=== PATIENT | female | born 1950 | race Caucasian/White ===

== ENCOUNTER → 2020-03-13 09:00 | Outpatient (BNVA) | payer MEDICARE, SELFPAY | PROVIDERS: Family Provider Nurse Practitioner Family; Visit Provider Nurse Practitioner Family | DX: Z13.29 Encounter for screening for other suspected endocrine disorder (principal); Z13.6 Encounter for screening for cardiovascular disorders; Z12.39 Encounter for other screening for malignant neoplasm of breast; I10 Essential (primary) hypertension; F32.9 Major depressive disorder, single episode, unspecified | CPT/HCPCS: 80053; 80061; 84439; 84443 ==

== ENCOUNTER → 2020-09-10 10:36 | Outpatient (BNVA) | payer MEDICARE, SELFPAY | PROVIDERS: Family Provider Nurse Practitioner Family; PCP Nurse Practitioner Family; Visit Provider Nurse Practitioner Family | DX: I10 Essential (primary) hypertension (principal); Z68.27 Body mass index [BMI] 27.0-27.9, adult; F32.9 Major depressive disorder, single episode, unspecified; Z23 Encounter for immunization | CPT/HCPCS: 80053; 80061 ==

== ENCOUNTER 2020-12-24 14:31 | Emergency (ER) | payer MEDICARE, SELFPAY ==
[2020-12-24 14:32] VITALS: BP 155/82; PULSE 110; RESP 16; TEMP 37.1; O2SAT 89; BMI 26.5
--- NOTE | 2020-12-24 14:47 | ED_ITS ---
HPI - Extremity Problem General: Chief complaint: Extremity Injury, Lower Stated complaint: FALL, R FOOT PAIN, SWELLING Time Seen by Provider: 12/24/20 14:33 History of Present Illness: HPI Narrative: 70-year-old female presents emergency room via EMS after a fall at home. She slipped on some ice outside and twisted her right ankle she has an obvious deformity of some ecchymosis after this happened she managed to get inside using a walker in the house and fell again. Neither time did she strike her head or lose consciousness. She denies any other injuries. She does take aspirin daily but denies any other anticoagulants. No chest pain or shortness of breath. MD Complaint: joint swelling and joint pain Onset (ago): hour(s) Pain Consistency: constant Location: right and other (ankle) Quality: aching, sharp and constant Radiation: none Relieving factors: immobilization Exacerbating factors: range of motion, weight bearing and palpation Associated symptoms: Deny arthralgias, chest pain, fever(s), myalgias, rash or short of breath Review of Systems Const: Denies: fever(s) ENMT: Denies: throat pain, ear or mastoid pain, nasal discharge or nasal congestion Card: Denies: chest pain Resp: Denies: dyspnea, productive cough or non-productive cough GI: Denies: abdominal pain, nausea, vomiting, hematemesis, coffee ground emesis, diarrhea, constipation, bloating, hematochezia or melena : Denies: flank pain, difficulty voiding, dysuria, urinary frequency or urinary urgency Skin/Breast: Denies: rash PFSH ED PFSH: Medical History (Updated 12/24/20 @ 15:33 by Jose Goss DO) COPD (chronic obstructive pulmonary disease) Depression GERD (gastroesophageal reflux disease) Hyperlipidemia Hypertension Social History Smoking and tobacco status: never smoked Alcohol intake: current Alcohol intake frequency: holidays/special occasions only Physical Exam Const: COMMON NORMALS: no acute distress GENERAL APPEARANCE: cooperative and comfortable ORIENTATION/CONSCIOUSNESS: Yes awake, Yes oriented to person, Yes oriented to place and Yes oriented to time HENMT: COMMON NORMALS: normocephalic, atraumatic and hearing grossly normal bilaterally HEAD & SCALP: normocephalic and atraumatic Neck/C-Spine: COMMON NORMALS: no JVD Resp: COMMON NORMALS: normal respiratory effort, No retractions, No use of accessory muscles and clear to auscultation bilaterally AUSCULTATION: clear to auscultation bilaterally Cardio: COMMON NORMALS: no JVD, regular rate, regular rhythm and No murmurs present (Cardio) RATE: regular rate RHYTHM: regular rhythm GI: COMMON NORMALS: Soft to palpation and No hepatosplenomegaly present AUSCULTATION: Yes normoactive bowel sounds PALPATION: Yes Soft to palpation, No Tenderness to palpation present (GI), No Guarding due to palpation present (GI) and Yes No hepatosplenomegaly present Extremity: COMMON NORMALS: normal to inspection, capillary refill normal, no clubbing, cyanosis or edema, no calf tenderness and no pedal edema NARRATIVE EXTREMITY EXAM: Obvious deformity of the right ankle with early ecchymotic changes. Review of the x-ray shows a moderately displaced trimalleolar fracture with a large involvement of the articulating surface of the distal tibia. Neuro: SENSORIUM/ORIENTATION: Yes oriented to person, Yes oriented to place and Yes oriented to time Skin: COMMON NORMALS: no rashes or lesions noted GENERAL SKIN EXAM: no rashes or lesions noted Course Vital Signs: Vital signs: Vital Signs Temperature 98.8 F 12/24/20 14:32 Pulse Rate 105 H 12/24/20 14:59 Respiratory Rate 18 12/24/20 14:59 Blood Pressure 155/82 12/24/20 14:59 Pulse Oximetry 97 12/24/20 14:59 MDM - Extremity (Nontraumatic) MDM Narrative: Medical decision making narrative: Discussed with Dr. Lao he is on-call for podiatry. Posterior splint and nonweightbearing pain medications follow-up with him tomorrow to plan for definitive surgical reductio n. Discharge Plan Discharge Patient Disposition: Home Clinical Impression: Closed trimalleolar fracture of ankle Qualifiers: Encounter type: initial encounter Laterality: right Qualified Code(s): S82.851A - Displaced trimalleolar fracture of right lower leg, initial encounter for closed fracture Condition: Stable Prescriptions: New hydrocodone-acetaminophen 5-325 mg tablet 1 tab PO Q6H PRN (Reason: pain) Qty: 20 RF: 0 No Action aspirin [Adult Aspirin Regimen] 81 mg tablet,delayed release (DR/EC) 81 mg PO DAILY RF: 0 amlodipine 5 mg tablet 5 mg PO DAILY Qty: 90 RF: 3 omeprazole 20 mg capsule,delayed release(DR/EC) 20 mg PO DAILY Qty: 90 RF: 3 pravastatin 40 mg tablet 40 mg PO DAILY Qty: 90 RF: 3 sertraline 100 mg tablet 100 mg PO DAILY Qty: 90 RF: 3 albuterol sulfate 2.5 mg /3 mL (0.083 %) solution for nebulization 2.5 mg INHALATION Q4H PRN (Reason: shortness of breath or wheezing) Qty: 180 RF: 3 triamcinolone acetonide 0.5 % ointment 1 applic TOPICAL TID Qty: 15 RF: 0 albuterol sulfate [Ventolin HFA] 90 mcg/actuation HFA aerosol inhaler 2 puff INHALATION Q4H PRN (Reason: shortness of breath or wheezing) Qty: 18 RF: 2 Healthy Eyes Lutein-Zeaxanthin 60 mg-13.5 mg- 15 mg-2 mg-6 mg capsule 1 cap PO DAILY RF: 0 acetaminophen [Arthritis Pain Relief (acetam)] 650 mg tablet extended release 650 mg PO Q12H RF: 0 Discharge Orders: Discharge ED (Routine); Ordered 12/24/20 Ordered By: Jose Goss Referrals: Chase Lao DPM [Physician] - Discharge Diet: Usual diet Discharge Activity: Limit activity as instructed Activity Restrictions/Additional Instructions: Case management will call with an appointment to Dr. Lao's office Coding Level of Care Code ED Stage Driver for [facility]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
--- NOTE | 2020-12-24 14:51 | XR_ITS ---
WS: [id number] ANKLE RIGHT TECHNIQUE: 3 views of the right ankle CLINICAL INFORMATION: papin/deformity COMPARISON: None. FINDINGS: Diffuse soft tissue edema. Comminuted fracture involving the distal fibula. Additional spiral type fr acture involving the distal tibia extending to the tibial plafond. Mild disruption of the ankle morti se. Additional nondisplaced fracture extending into the medial malleolus. XR/XR ankle RT min 3V* [id number] IMPRESSION: 1. Comminuted fractures involving the distal fibula with spiral type fracture involving the distal tibial shaft extending to the tibial plafond. 2. Additional nondisplaced fracture involving the medial malleolus.
[2020-12-24 14:59] VITALS: BP 155/82; PULSE 105; RESP 18; O2SAT 97
--- NOTE | 2020-12-24 15:29 | CT_ITS ---
WS: [id number] Noncontrast CT right ankle TECHNIQUE: Noncontrast CT right ankle with coronal and sagittal reformatted images. CLINICAL INFORMATION: fracture COMPARISON: None. DLP: 111.[address] scans at [facility] use at least one of these dose optimization techniques: automat ed exposure control; mA and/or kV adjustment per patient size (includes targeted exams where dose is matched to clinical indication); or iterative reconstruction. FINDINGS: Comminuted fracture involving the distal fibula. Diffuse soft tissue edema. Comminuted fracture invol ving the distal tibial shaft with intra-articular extension. Disruption of the tibiotalar joint with widening measuring 5 mm. Avulsed and displaced fracture involving the anterolateral tibial plafond. F racture fragment is displaced anterior to the lateral malleolus and measures 16 mm. Additional comminuted fracture involving the medial malleolus. Talus is normal in appearance. Normal calcaneus. Normal talocalcaneal articulation. Normal navicular. CT/CT ankle RT wo con* [id number] IMPRESSION: 1. Extensively comminuted fracture involving the lateral malleolus, medial mal leolus, and distal tibial shaft with intra-articular extension. 2. Disruption of the tibiotalar joint with widening measuring 5 mm. Avulsed an d displaced fracture involving the anterolateral tibial plafond. Fracture is di splaced anterior to the lateral malleolus and measures 16 mm. 3. Normal talus and calcaneus.
[2020-12-24 16:13] VITALS: BP 163/95; PULSE 109; RESP 18; O2SAT 95
[2020-12-25 15:20] LABS: Coronavirus Test Green County Not Detected
--- NOTE | 2020-12-25 16:05 | PC.NURSE ---
Patient notified of COVID results at this time.
== END 2020-12-24 16:14 | disposition home or self-care (01) ==
PROVIDERS: Emergency Provider Family Medicine; PCP Nurse Practitioner Family
DX: S82.851A Displaced trimalleolar fracture of right lower leg, initial encounter for closed fracture (principal); Z79.82 Long term (current) use of aspirin; J44.9 Chronic obstructive pulmonary disease, unspecified; E78.5 Hyperlipidemia, unspecified; I10 Essential (primary) hypertension; W00.0XXA Fall on same level due to ice and snow, initial encounter
CPT/HCPCS: 12345; 29515; 73610; 73700; 87635; 99283; E0114

== ENCOUNTER 2020-12-25 14:43 | Outpatient (CLI) | payer MEDICARE, SELFPAY | END 2020-12-25 14:44 | disposition home or self-care (01) | LOC: SPT 14:44 | PROVIDERS: PCP Nurse Practitioner Family; Visit Provider Podiatrist Foot & Ankle Surgery | DX: Z46.89 Encounter for fitting and adjustment of other specified devices (principal); S82.851D Displaced trimalleolar fracture of right lower leg, subsequent encounter for closed fracture with routine healing; X58.XXXD Exposure to other specified factors, subsequent encounter | CPT/HCPCS: 97760; L4361 ==

== ENCOUNTER → 2021-01-08 08:56 | Outpatient (BNVA) | payer MEDICARE, SELFPAY | PROVIDERS: PCP Nurse Practitioner Family; Visit Provider Podiatrist Foot & Ankle Surgery | DX: Z01.812 Encounter for preprocedural laboratory examination (principal); S82.851A Displaced trimalleolar fracture of right lower leg, initial encounter for closed fracture; X58.XXXA Exposure to other specified factors, initial encounter | CPT/HCPCS: 73610; 87635 ==

== ENCOUNTER 2021-01-09 08:01 | Day surgery (SDC) | payer MEDICARE, SELFPAY ==
[2021-01-08 13:24] VITALS: BMI 26.5
[2021-01-09] VITALS (9 sets, daily range): BP systolic 106–170; BP diastolic 80–97; PULSE 84–105; RESP 18–20; TEMP 36.8–37.3; O2SAT 93–100
--- NOTE | 2021-01-09 | SCC_ITS ---
Procedure Done: Open reduction internal fixation pilon fracture with fixation of fibula 37314 53.0 seconds of fluoroscopic guidance, for a cumulative dose of 1.372 mGy, was provided to Dr. Lao by the radiology department. C-arm images of the RIGHT ankle were saved for the patient's permanent record. [facility]
[2021-01-09] MEDS: sodium chloride 0.9% 1,000 ML 30 ML IV (08:59)
--- NOTE | 2021-01-09 09:21 | W.PM.OPSUD ---
Surgery/Procedure H&P Update DATE OF PROCEDURE: January 09, 2021 DATE H&P PERFORMED: 01/08/21 H&P UPDATE INFORMATION: I have reviewed H&P completed within last 30 days, I have examined patient prior to procedure, No changes to prior documentation and H&P is in [facility] on date indicated PREOP DIAGNOSIS: Right trimalleolar fracture PLANNED PROCEDURE: Operation Date: 01/09/21 09:40 Proposed Procedures p Open reduction internal fixation pilon fracture with fixation of fibula 82079 S82.871A S82.401A(Right) - Chase Loa DPM
--- NOTE | 2021-01-09 10:07 | ANES.PREANE2 ---
Pre-Anesthetic Assessment Pre-Anesthetic Assessment: Height/Weight: Height 1.6 m Weight 68.039 kg Temp Pulse Resp BP Pulse Ox 98.2 F 105 H 18 170/86 93 01/09/21 08:35 01/09/21 08:35 01/09/21 08:35 01/09/21 08:35 01/09/21 08:35 Preop Diagnosis: Right trimalleolar fracture Proposed Procedure: Operation Date: 01/09/21 09:40 Proposed Procedures p Open reduction internal fixation pilon fracture with fixation of fibula 77861 S82.871A S82.401A(Right) - Chase Lao DPM Was Beta Jose Angel taken within 24 hours: N/A Last intake: Intake Last Liquid Date 01/09/21 Last Liquid Time 07:00 Last Solid Date 01/09/21 Last Solid Time 18:00 Social: Social History: Tobacco and No alcohol Exam: Pre-Anes Outpt Exam: alert, oriented x 3 and regular rate & rhythm CV/HEM: CV/HEM: HTN GI: GI: GERD Neuropsych: Neuropsych: Anxiety and Depression Anesthetic Plan: ASA status: 3 Anesthesia: MAC and Regional (specify below) (POP blk) Risk of > 500 ml blood loss (7ml/kg in children): No Meds/Allergies Current Medications: Current Medications Generic Name Dose Route Start Last Admin Trade Name Freq PRN Reason Stop Dose Admin Sodium Chloride 1,000 mls @ 30 ml s/hr 01/09/21 08:15 01/09/21 08:59 Sodium Chloride 0.9% IV 01/10/21 08:14 30 mls/hr .Q24H MILAGROS Administration PFSH Anesthesia PFSH: Medical History (Updated 01/08/21 @ 09:34 by Chase Lao DPM) COPD (chronic obstructive pulmonary disease) Depression GERD (gastroesophageal reflux disease) Hyperlipidemia Hypertension Social History Smoking and tobacco status: never smoked Alcohol intake: current Alcohol intake frequency: holidays/special occasions only Data Anesthesia Cardiac Studies: No Data to Display
--- NOTE | 2021-01-09 13:45 | XR_ITS ---
WS: [id number] Right ankle, 3 views, 01/09/2021 Clinical Data: post op Comparison: Right ankle, 01/08/2021 Findings: The trimalleolar fracture has been reduced with a plate on the lateral aspect of the right fibula and posterior aspect of the distal right tibia. There are oblique screws in the medial malleolus. There is a posterior splint. XR/XR ankle RT min 3V* [id number] Impression: Internal fixation of trimalleolar fracture.
[2021-01-09] MEDS: oxyCODONE-APAP 10-325 mg Tablet 1 TAB PO (15:10)
--- NOTE | 2021-01-09 15:14 | ANE.PACU2 ---
Inpatient post-anesthesia follow up: Airway intact: Yes Vital signs: Temperature 99.2 F Pulse Rate 89 Respiratory Rate 18 Blood Pressure 154/97 Pulse Oximetry 95 Oxygen Delivery Me thod Room Air Oxygen Flow Rate 8 Fraction of Inspir ed Oxygen Hydration adequate: Yes Nausea and vomiting: No Pain level: 2 Mental status: Baseline
--- NOTE | 2021-01-09 21:45 | P.OP_ITS ---
Operative Report Date of procedure: January 09, 2021 Pre-op Diagnosis: Right pilon fracture, right fibular fracture. Post-op diagnosis: same Procedure Done: Open reduction internal fixation pilon fracture with fixation of fibula right lower extremity CPT code 06103 Implants: Arthrex posterior tibial plate with 2.7 millimeter screws distally and 3.5 millimeter screws proximally. Arthrex one third tubular plate on posterior fibula with 3.5 mm locking screws. Arthrex 4.0 headless FT screws at medial malleolus x2. 2-0 Vicryl, 3-0 Vicryl, 3-0 nylon, 4-0 nylon. Specimens removed/disposition: None Pathology: none sent Surgeon: Chase Lao D.P.M. [employer] Operator: Kacy Anderson Haley [employer] Anesthesia: General Estimated blood loss: 25 mL Tourniquet time: See intraoperative documentation IV fluids: None Urine output: None Complications: None Findings: Pilon fracture to the right distal tibia involving approximately 80% of the tibial plafond, Manjit Barnett B fibula fracture, right. Condition: stable Disposition: PACU Brief History: Ms. Graham is a pleasant 70-year-old female who sustained a right pilon fracture on December 24, 2020 slipped on ice at home going out to feed her birds. States that she slipped twisting her right ankle and then fell backwards landing on her right ankle and sat on it. She was seen in the emergency department and splinted and given crutches as well as hydrocodone and was nonweightbearing. Follow-up in podiatry clinic the next day. Concern for fracture blisters and poor soft tissue envelope with significant ecchymosis and edema delayed surgery until today. I discussed surgical approach will be prone, posterior lateral incision and percutaneous medial malleolus fixation. I reviewed x-rays and CT findings with the patient at length she has a large posterior fragment of the distal tibia extends into the tibial plafond and involves approximately 80% of the articular surface with displacement posteriorly and proximally. She also has a comminuted distal fibular fracture Manjit Barnett B as well as comminution and fracturing at the shoulder the medial malleolus. I explained to the patient that she has a grossly unstable ankle fracture and a large step-off of the tibial plafond and fracture displacement. Recommended open reduction internal fixation of her pilon fracture as well as distal fibular fracture. Risks of this type of surgery are included in the following but not limited to pain, bleeding, acute and permanent numbness, hypersensitivity, paresthesias, swelling both acutely and chronic, keloid formation, surgical site dehiscence, seroma, hematoma, skin necrosis, failure to anatomically reduce the pilon fracture, damage to adjacent soft tissue structures, loss of function, decreased range of motion at the ankle joint, painful range of motion at the ankle joint, painful hardware, hardware irritation, hardware failure, delayed union, nonunion and malunion. I also informed the patient that she will experience posttraumatic arthritis down the road as a result of this injury. Also inherent risks associate with anesthesia and being nonweightbearing postoperatively for an extended period of time puts her at risk for DVT, heart attack and stroke. I interviewed the patient preoperatively in holding she is accompanied by her sister. All questions answered to their satisfaction. Informed consent is signed, initialed the patient's right ankle. Patient wishes to proceed. No guarantees written, expressed or implied. Procedure: Under mild sedation the patient was brought to the operating room, timeout was performed. While patient was still on the [facility] general anesthesia was induced per anesthesia and a well-padded pneumatic tourniquet applied to the right thigh. Patient was then placed in prone position on the operating room table well-padded utilizing normal technique. Right lower extremity was then scrubbed, prepped and draped utilizing normal aseptic technique. Right lower extremity was examined a weighted with an Esmarch bandage and the tourniquet inflated to 300 mmHg. Attention was directed to the right posterior ankle I was able to palpate the lateral border of the Achilles and the medial border of the distal fibula. [place] between these 2 landmarks a linear longitudinal incision was made approximately 15 cm in length with a #15 blade. Dissection was carried down through subcutaneous tissue down to the layer of deep fascia utilizing sharp and blunt technique. Care was taken to retract and preserve neurovascular tendinous structures. Bleeders were ligated and cauterized as necessary. Approach was taken directly down to the posterior tibia to address the pilon fracture first. The interval between the medial border of the peroneal tendons and musculature and the lateral border of the flexor houses longus muscle belly was identified and fascial layers incised. Dissection was carried down to the posterior tibia with the neurovascular bundle being protected medial to the flexor houses longus muscle belly. Periosteal incision was made and a fracture was directly visualized this was a spiral fracture of the distal tibia and extended through the tibial plafond and was displaced both posteriorly and superiorly. Hematoma was evacuated utilizing bone curette and lavage. Fracture was then reduced and temporarily stabilized utilizing a bone reduction forcep. Next utilizing standard AO technique and Arthrex posterior tibial plate was fixated with 2.7 millimeter screws distally and 3.5 mm proximally with excellent bony apposition and compression noted with care taken not to violate the ankle mortise this was confirmed with AP and lateral views intraoperative C arm. Incision site was then flushed with copious amounts of sterile saline solution. Within the same skin incision dissection was then carried down to the lateral portion of the incision and peritoneal musculature and tendons retracted medially exposing the posterior fibula. Periosteal incision was made and fracture site was identified evacuated of hematoma formation utilizing curettage and lavage. This was reduced and fixated utilizing standard AO technique a Arthrex one third tubular plate and 3.5 mm locking screws was utilized to distal and 3 proximal with excellent bony apposition and compression noted and placement and reduction confirmed utilizing intraoperative fluoroscopy and noted to be excellent. Incision site was then flushed with copious amounts of sterile saline solution. While patient was still positioned prone the medial malleolus was palpated, utilizing AP and mortise views the medial malleolus was fixated percutaneously with 4.0 mm headless Arthrex FT screws x2 in a parallel fashion with excellent bony apposition and compression noted and care taken not to violate the ankle mortise at the medial gutter. This was confirmed utilizing live fluoroscopy. The posterior incision was then irrigated with a saline solution. Both deep incisions were reapproximated with fascial layers utilizing 2-0 Vicryl. Subcutaneous tissue was then reapproximated utilizing 3-0 Vicryl and skin reapproximated utilizing 3-0 nylon in a horizontal mattress technique. Percutaneous incision at the medial malleolus closed utilizing 4-0 nylon. Final images reviewed and taken in all 3 cardinal planes utilizing intraoperative fluoroscopy noted to be excellent points of fixation both at the pilon fracture and distal fibular fracture as well as medial malleolus. Incision sites were dressed with Adaptic, sterile 4 x 4's, Kerlix followed by application of multilayer compressive posterior splint. Tourniquet was deflated and a prompt hyperemic response was noted to the distal digits of the right foot. Patient tolerated the procedure well and was transferred to the PACU with vital signs stable vascular status intact. Postoperatively anesthesia performed a popliteal block for analgesia. Patient has order for wheelchair as well as currently u tilizing crutches she has family staying with her through the weekend. Was advised to remain strict nonweightbearing and elevate her right foot at all times while at rest. She was instructed to begin taking a 81 mg aspirin once daily for DVT prophylaxis starting tomorrow January 10, 2021. Was given postoperative instructions, at home care instructions and follow-up appointments on discharge paperwork. Also provided my cell phone number and is to contact with any postoperative questions or concerns.
== END 2021-01-09 15:50 | disposition home or self-care (01) ==
PROVIDERS: PCP Nurse Practitioner Family; Visit Provider Podiatrist Foot & Ankle Surgery
PROC: (CPT 27828; principal; 2021-01-09 09:20)
DX: S82.871A Displaced pilon fracture of right tibia, initial encounter for closed fracture (principal); S82.401A Unspecified fracture of shaft of right fibula, initial encounter for closed fracture; X58.XXXA Exposure to other specified factors, initial encounter; I10 Essential (primary) hypertension; J44.9 Chronic obstructive pulmonary disease, unspecified; F32.9 Major depressive disorder, single episode, unspecified; F41.9 Anxiety disorder, unspecified; K21.9 Gastro-esophageal reflux disease without esophagitis; E78.5 Hyperlipidemia, unspecified; Z79.82 Long term (current) use of aspirin
CPT/HCPCS: 27828; 51702; 64450; 73610; 76000; 76942; C1713; J0690; J2704; J2795; J3010; J3490; J7030

== ENCOUNTER → 2021-01-19 11:36 | Outpatient (BNVA) | payer MEDICARE, SELFPAY | PROVIDERS: PCP Nurse Practitioner Family; Visit Provider Podiatrist Foot & Ankle Surgery | DX: Z47.89 Encounter for other orthopedic aftercare (principal); S82.831D Other fracture of upper and lower end of right fibula, subsequent encounter for closed fracture with routine healing; S82.871D Displaced pilon fracture of right tibia, subsequent encounter for closed fracture with routine healing; X58.XXXD Exposure to other specified factors, subsequent encounter | CPT/HCPCS: 73610; 97760; L4361 ==

== ENCOUNTER 2021-01-19 12:15 | Outpatient (CLI) | payer MEDICARE, SELFPAY | END 2021-01-19 12:16 | disposition home or self-care (01) | LOC: SPT 12:15 | PROVIDERS: PCP Nurse Practitioner Family; Visit Provider Podiatrist Foot & Ankle Surgery | DX: Z47.89 Encounter for other orthopedic aftercare (principal); S82.831D Other fracture of upper and lower end of right fibula, subsequent encounter for closed fracture with routine healing; S82.871D Displaced pilon fracture of right tibia, subsequent encounter for closed fracture with routine healing; X58.XXXD Exposure to other specified factors, subsequent encounter | CPT/HCPCS: 97760; L4361 ==

== ENCOUNTER → 2021-01-30 10:14 | Outpatient (BNVA) | payer MEDICARE, SELFPAY | PROVIDERS: PCP Nurse Practitioner Family; Visit Provider Podiatrist Foot & Ankle Surgery | DX: Z98.890 Other specified postprocedural states (principal); S82.831D Other fracture of upper and lower end of right fibula, subsequent encounter for closed fracture with routine healing; S82.871D Displaced pilon fracture of right tibia, subsequent encounter for closed fracture with routine healing; X58.XXXD Exposure to other specified factors, subsequent encounter | CPT/HCPCS: 73610 ==

== ENCOUNTER → 2021-02-27 10:24 | Outpatient (BNVA) | payer MEDICARE, SELFPAY | PROVIDERS: PCP Nurse Practitioner Family; Visit Provider Podiatrist Foot & Ankle Surgery | DX: Z98.890 Other specified postprocedural states (principal) | CPT/HCPCS: 73610 ==

== ENCOUNTER → 2021-03-13 13:10 | Outpatient (BNVA) | payer MEDICARE, SELFPAY | PROVIDERS: PCP Nurse Practitioner Family; Visit Provider Podiatrist Foot & Ankle Surgery | DX: Z98.890 Other specified postprocedural states (principal); S82.831A Other fracture of upper and lower end of right fibula, initial encounter for closed fracture; S82.871A Displaced pilon fracture of right tibia, initial encounter for closed fracture; Z46.89 Encounter for fitting and adjustment of other specified devices; S82.831S Other fracture of upper and lower end of right fibula, sequela; S82.871S Displaced pilon fracture of right tibia, sequela; X58.XXXS Exposure to other specified factors, sequela | CPT/HCPCS: 73610; 97760; L1902 ==

== ENCOUNTER 2021-03-13 13:59 | Outpatient (CLI) | payer MEDICARE, SELFPAY | END 2021-03-13 14:00 | disposition home or self-care (01) | LOC: SPT 14:01 | PROVIDERS: PCP Nurse Practitioner Family; Visit Provider Podiatrist Foot & Ankle Surgery | DX: Z46.89 Encounter for fitting and adjustment of other specified devices (principal); S82.831S Other fracture of upper and lower end of right fibula, sequela; S82.871S Displaced pilon fracture of right tibia, sequela; X58.XXXS Exposure to other specified factors, sequela | CPT/HCPCS: 97760; L1902 ==

== ENCOUNTER → 2021-04-03 15:07 | Outpatient (BNVA) | payer MEDICARE, SELFPAY | PROVIDERS: PCP Nurse Practitioner Family; Visit Provider Podiatrist Foot & Ankle Surgery | DX: Z98.890 Other specified postprocedural states (principal); S82.831A Other fracture of upper and lower end of right fibula, initial encounter for closed fracture; S82.871A Displaced pilon fracture of right tibia, initial encounter for closed fracture; X58.XXXA Exposure to other specified factors, initial encounter | CPT/HCPCS: 73610 ==

== ENCOUNTER → 2021-04-08 09:00 | Outpatient (BNVA) | payer MEDICARE, SELFPAY | PROVIDERS: PCP Nurse Practitioner Family; Visit Provider Nurse Practitioner Family | DX: E78.5 Hyperlipidemia, unspecified (principal); I10 Essential (primary) hypertension | CPT/HCPCS: 80053; 80061 ==

== ENCOUNTER 2021-06-09 15:34 | Outpatient (CLI) | payer MEDICARE, SELFPAY ==
--- NOTE | 2021-06-09 15:46 | XR_ITS ---
WS: [id number] DEXA (DUAL ENERGY X-RAY ABSORPTIOMETRY) Bone mineral density was performed using a [employer] machine. HISTORY: S82.831A - Other fracture of upper and lower end of right... COMPARISON: None available. Lumbar spine BMD (L1-L4): 1.089 g/cm2 T score: -0.8 Z score: 0.7 Total hip BMD: Left: 0.621 g/cm2. T score: -3.1 Z score: -1.7 Right: 0.509 g/cm2. T score: -4.0 Z score: -2.6 10 year probability of a major osteoporotic fracture is 39%. XR/XR DEXA axial skeleton* 31174 IMPRESSION: OSTEOPOROSIS based upon the WHO classification for females.
== END 2021-06-09 15:35 | disposition home or self-care (01) ==
PROVIDERS: PCP Nurse Practitioner Family; Visit Provider Nurse Practitioner Family
DX: S82.831A Other fracture of upper and lower end of right fibula, initial encounter for closed fracture (principal); X58.XXXA Exposure to other specified factors, initial encounter; M81.0 Age-related osteoporosis without current pathological fracture
CPT/HCPCS: 77080

== ENCOUNTER → 2021-07-21 16:32 | Outpatient (BNVA) | payer MEDICARE, SELFPAY | PROVIDERS: PCP Nurse Practitioner Family; Visit Provider Nurse Practitioner Family | DX: M81.0 Age-related osteoporosis without current pathological fracture (principal); I10 Essential (primary) hypertension; Z68.27 Body mass index [BMI] 27.0-27.9, adult | CPT/HCPCS: 82310 ==

== ENCOUNTER → 2021-10-12 08:54 | Outpatient (BNVA) | payer MEDICARE, SELFPAY | PROVIDERS: PCP Nurse Practitioner Family; Visit Provider Nurse Practitioner Family | DX: I10 Essential (primary) hypertension (principal); M81.0 Age-related osteoporosis without current pathological fracture; E78.2 Mixed hyperlipidemia; N39.3 Stress incontinence (female) (male); Z68.29 Body mass index [BMI] 29.0-29.9, adult | CPT/HCPCS: 80053; 80061; 84443; 85025 ==

== ENCOUNTER → 2022-04-02 09:40 | Outpatient (BNVA) | payer MEDICARE, SELFPAY | PROVIDERS: PCP Nurse Practitioner Family; Visit Provider Nurse Practitioner Family | DX: J44.9 Chronic obstructive pulmonary disease, unspecified (principal); I10 Essential (primary) hypertension; E55.9 Vitamin D deficiency, unspecified; E78.2 Mixed hyperlipidemia; F32.9 Major depressive disorder, single episode, unspecified | CPT/HCPCS: 80053; 80061; 82306; 84443; 85025 ==

== ENCOUNTER → 2022-09-28 09:00 | Outpatient (BNVA) | payer MEDICARE, SELFPAY | PROVIDERS: PCP Nurse Practitioner Family; Visit Provider Nurse Practitioner Family | DX: I10 Essential (primary) hypertension (principal); E78.2 Mixed hyperlipidemia; F32.9 Major depressive disorder, single episode, unspecified; Z68.29 Body mass index [BMI] 29.0-29.9, adult | CPT/HCPCS: 80053; 80061 ==

== ENCOUNTER 2022-10-25 10:13 | Observation (INO) | payer MEDICARE, SELFPAY ==
[2022-10-25] VITALS (23 sets, daily range): BP systolic 107–156; BP diastolic 48–87; PULSE 84–113; RESP 16–26; TEMP 36.3–36.7; O2SAT 77–95
--- NOTE | 2022-10-25 11:14 | ED_ITS ---
HPI - SOB/Dyspnea General: Chief Complaint: Shortness of Breath/Dyspnea Stated Complaint: lower back pain, reduced mobility Time Seen by Provider: 10/25/22 10:56 History of Present Illness: HPI Narrative: Ms. Graham is a 72-year-old lady with history of COPD, hypertension, hyperlipidemia presenting to the emergency department due to respiratory symptoms. She reports onset of symptoms 2 or 3 days ago associated with cough, shortness of breath, generalized malaise with decreased exertional tolerance. Intensity of symptoms is progressed to severe. Additionally she notes exacerbation of chronic back pain. No measured fevers, has had mild diarrhea, no abdominal cramping or pain. No other specific changes in health, exacerbating, or alleviating factors identified. Onset (ago): day(s) Timing: progressively worsening Severity: severe Exacerbating factors: exertion and coughing Relieving factors: nothing Known history of: COPD Associated symptoms: Reports chest congestion, cough and other Review of Systems 2 General: Reports: 10 or more systems reviewed and unremarkable except in HPI and below Resp: Reports: chest congestion PFSH ED PFSH: Medical History COPD (chronic obstructive pulmonary disease) Depression GERD (gastroesophageal reflux disease) 1 para 1 Hyperlipidemia Hypertension Osteoporosis Post-traumatic arthritis of right ankle Stress incontinence in female Vitamin D deficiency Surgical History History of cataract surgery bialteral History of elbow surgery left, due to nerve entrapment History of tubal ligation Status post open reduction and internal fixation (ORIF) of fracture (12/2020) Dr. Lao; right pilon fracture, right fibular fracture Family History Father Cancer Type of cancer not known (unknown primary), but was in the lungs Mother , age 54 from respiratory disease, COPD, heavy smoker Lung disease Other Diabetes Social History Smoking and tobacco status: former smoker Alcohol intake: current Alcohol intake frequency: holidays/special occasions only Lives independently: Yes Household members: none Physical Exam Const: COMMON NORMALS: alert GENERAL APPEARANCE: cooperative, well developed and ill appearing (somewhat) HENMT: COMMON NORMALS: normocephalic and atraumatic HEAD & SCALP: normocephalic and atraumatic Eye: COMMON NORMALS: conjunctivae normal CONJUNCTIVA: Yes conjunctivae normal SCLERA: sclerae normal Neck/C-Spine: COMMON NORMALS: supple GENERAL: Yes trachea midline Resp: COMMON NORMALS: clear to auscultation bilaterally EFFORT & INSPECTION: Yes tachypneic AUSCULTATION: clear to auscultation bilaterally Cardio: COMMON NORMALS: regular rate and regular rhythm RATE: regular rate RHYTHM: regular rhythm GI: COMMON NORMALS: Soft to palpation PALPATION: Yes Soft to palpation and No Tenderness to palpation present (GI) Extremity: GENERAL: Yes normal exam except as noted and No edema Neuro: COMMON NORMALS: moves all extremities SENSORIUM/ORIENTATION: Yes alert and No Orientation impaired Psych: COMMON NORMALS: mental status grossly normal and Normal thought process present THOUGHT PROCESS: Normal thought process present Course Vital Signs: Vital signs: Vital Signs Temperature 98.4 F 10/28/22 12:00 Pulse Rate 90 10/28/22 12:14 Respiratory Rate 20 H 10/28/22 12:14 Blood Pressure 146/69 10/28/22 12:00 Pulse Oximetry 94 10/28/22 12:14 Oxygen Delivery Me thod 10/28/22 11:41 Oxygen Flow Rate 4 10/28/22 11:41 MDM - SOB/Dyspnea Medical Decision Making 72-year-old lady with complex history presenting with generalized illness including increased pain and decreased mobility along with shortness of breath. Exam as above. EKG notable for sinus tachycardia, nonspecific ST segment abnormalities, no STEMI. Labs notable for no leukocytosis, normal hemoglobin and platelet count. Me tabolic panel without marked electrolyte derangement. 2-hour delta troponin is negative and BNP only minimally elevated. Patient is positive for influenza A. ABG 7.48/35/48.9 on 6 L nasal cannula. Chest x-ray reviewed and essentially unimpressive for degree of patient's symptoms. No pneumothorax or lobar consolidation. Given severity of symptoms and age patient cannot be ruled out by PERC criteria and D-dimer is elevated above age-adjusted cut off. CTA of the chest negative for acute pathology including thromboembolic pathology. During ED course patient treated with DuoNeb, methylprednisolone, doxycycline. Upon serial reassessment patient only mildly proved and still requiring oxygen above baseline. Most likely etiology of patient's symptoms is viral induced exacerbation of underlying lung disease with acute hypoxic respiratory failure. The results of ED evaluation were discussed with the patient including plan for admission due to requirement for level of care not available if discharged to prevent significant worsening/deterioration. Patient agreeable with plan. Discussed with hospitalist service who was agreeable to admit patient. Medical Records I reviewed the patient's medical records. Lab Data I reviewed the patient's lab results. 10/25/22 11:38 10/25/22 11:38 Labs/Radiology: Radiology Impressions Chest X-Ray 10/25/22 11:18 IMPRESSION: No acute chest abnormality. Chest CTA 10/25/22 12:16 IMPRESSION: 1. No evidence of pulmonary embolus. 2. No acute pulmonary infiltrates. 3. No focal pneumonia or pleural fluid. Laboratory Results WBC 7.3 10^3/uL (4.0-10.0) 10/25/22 11:38 RBC 5.69 10^6/uL (4.1-5.3) H 10/25/22 11:38 Hgb 13.4 g/dL (11.5-15.3) 10/25/22 11:38 Hct 43.6 % (37.0-47.0) 10/25/22 11:38 MCV 76.6 fl (81-99) L 10/25/22 11:38 MCH 23.6 pg (28.0-34.0) L 10/25/22 11:38 MCHC 30.7 g/dL (30.0-36.0) 10/25/22 11:38 RDW 15.4 % (12.1-15.1) H 10/25/22 11:38 Plt Count 340 10^3/cmm (130-400) 10/25/22 11:38 MPV 10.9 fL (7.4-10.4) H 10/25/22 11:38 Neut % (Auto) 75.7 % 10/25/22 11:38 Lymph % (Auto) 14.3 % 10/25/22 11:38 [place] % (Auto) 8.5 % 10/25/22 11:38 Eos % (Auto) 0.1 % 10/25/22 11:38 Baso % (Auto) 0.3 % 10/25/22 11:38 Neut # (Auto) 5.50 10^3/uL (1.8-7.7) 10/25/22 11:38 Lymph # (Auto) 1.0 10^3/uL (0.8-4.8) 10/25/22 11:38 [place] # (Auto) 0.6 10^3/uL (0.2-0.9) 10/25/22 11:38 Eos # (Auto) 0.0 10^3/uL (0.0-0.8) 10/25/22 11:38 Baso # (Auto) 0.0 10^3/uL (0.0-0.1) 10/25/22 11:38 Nucleated RBC % (auto) 0 % 10/25/22 11:38 Nucleated RBCs # 0.0 /100WBC 10/25/22 11:38 D-Dimer 0.91 ug/mIFEU (0-0.59) H 10/25/22 11:38 Specimen Type Arterial 10/25/22 11:18 Sample Site Radial, left 10/25/22 11:18 ABG pH 7.48 (7.35-7.45) H 10/25/22 11:18 ABG pCO2 35.0 mmHg (35-45) 10/25/22 11:18 ABG pO2 48.9 mmHg (80.0-100.0) L 10/25/22 11:18 ABG HCO3 26.2 mmol/L (22-26) H 10/25/22 11:18 ABG Base Excess 2.9 mmol/L (-2.0-2.0) H 10/25/22 11:18 George Test Pos 10/25/22 11:18 Hematocrit 40.1 % (37-47) 10/25/22 11:18 Hgb O2 Saturation 86.8 % (95-100) L 10/25/22 11:18 Carboxyhemoglobin 1.4 %THgb (0.4-20.1) 10/25/22 11:18 Methemoglobin 0.7 % (0.4-1.5) 10/25/22 11:18 Total Hemoglobin 13.1 g/dL (12-16) 10/25/22 11:18 O2 Delivery Device Nc 10/25/22 11:18 O2 Liters/Min 6.0 % 10/25/22 11:[address] Maintenance Supervisor ID Cak 10/25/22 11:18 Sodium 138 mmol/L (136-145) 10/25/22 11:38 Potassium 3.8 mmol/L (3.5-5.1) 10/25/22 11:38 Chloride 96 mmol/L (98-107) L 10/25/22 11:38 Carbon Dioxide 28 mmol/L (22-29) 10/25/22 11:38 Anion Gap 17.8 (5-19) 10/25/22 11:38 BUN 13 mg/dL (8-23) 10/25/22 11:38 Creatinine 0.6 mg/dL (0.5-0.9) 10/25/22 11:38 GFR Calculation Not Reportable 10/25/22 11:38 Glucose 96 mg/dL (65-115) 10/25/22 11:38 Calculated Osmolality 286 mOsm/kg (285-295) 10/25/22 11:38 Lactic Acid 1.5 mmol/L (0.5-2.2) 10/25/22 11:38 Calcium 10.0 mg/dL (8.5-10.5) 10/25/22 11:38 Total Bilirubin 0.3 mg/dL (0.15-1.2) 10/25/22 11:38 AST 15 U/L (0-32) 10/25/22 11:38 ALT 11 U/L (0-33) 10/25/22 11:38 Alkaline Phosphatase 65 U/L (35-105) 10/25/22 11:38 Troponin T Baseline 8 ng/L (0-10) 10/25/22 11:31 Troponin T 120 Minute 8.04 ng/L (0-10) 10/25/22 14:01 Delta Troponin T 0.04 ABS# (0-10) 10/25/22 14:01 Troponin T Hi Sens 6Hr 7.99 ng/L (0-10) 10/25/22 17:31 Troponin T Hi Sens 6Hr Delta -0.01 ng/L (0-12) L 10/25/22 17:31 NT-Pro-B Natriuret Pep 272 pg/mL (0-125) H 10/25/22 11:38 Total Protein 7.8 g/dL (6.6-8.7) 10/25/22 11:38 Albumin 4.6 g/dL (3.5-5.2) 10/25/22 11:38 Globulin 3.2 g/dL (1.3-4.6) 10/25/22 11:38 Procalcitonin 0.08 ng/mL (0-0.5) 10/25/22 11:38 Nasal Influ A H1 2009 PCR Detected (NOT DETECT) A 10/25/22 12:52 Adenovirus (PCR) Not detected (NOT DETECT) 10/25/22 12:52 C. pneumoniae DNA (PCR) Not detected (NOT DETECT) 10/25/22 12:52 Coronavirus 229E (PCR) Not detected (NOT DETECT) 10/25/22 12:52 Human Metapneumovir PCR Not detected (NOT DETECT) 10/25/22 12:52 Influenza A (H1) PCR Not detected (NOT DETECT) 10/25/22 12:52 Influenza A (H3) PCR Not detected (NOT DETECT) 10/25/22 12:52 Influenza Type A Ag negative (Negative) 10/25/22 12:58 Influenza Type A (PCR) Not detected (NOT DETECT) 10/25/22 12:52 Influenza Type B Ag negative (Negative) 10/25/22 12:58 Influenza Type B (PCR) Not detected (NOT DETECT) 10/25/22 12:52 M. pneumoniae (PCR) Not detected (NOT DETECT) 10/25/22 12:52 Parainfluenza 1 (PCR) Not detected (NOT DETECT) 10/25/22 12:52 Parainfluenza 2 (PCR) Not detected (NOT DETECT) 10/25/22 12:52 Parainfluenza 3 (PCR) Not detected (NOT DETECT) 10/25/22 12:52 Parainfluenza 4 (PCR) Not detected (NOT DETECT) 10/25/22 12:52 RSV Type A (PCR) Not detected (NOT DETECT) 10/25/22 12:52 RSV Type B (PCR) Not detected (NOT DETECT) 10/25/22 12:52 Entero/Rhino (PCR) Not detected (NOT DETECT) 10/25/22 12:52 SARS-CoV-2 (PCR) Not detected (NOT DETECT) 10/25/22 12:52 SARS-CoV-2 Ag (Rapid) Negative (Negative) 10/25/22 12:58 Discharge Plan Discharge Patient Disposition: Placed in Observation Admit Provider: Emilia Bridges Clinical Impression: Acute respiratory failure with hypoxia, Acute exacerbation of chronic obstructive pulmonary disease Coding Level of Care Code ED Stockholder for Chg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
--- NOTE | 2022-10-25 11:18 | XR_ITS ---
WS: [id number] XR chest 1V portable [id number] REASON FOR EXAM: sob FINDINGS: The chest is relatively unchanged compared to 08/15/2008. Minimal tortuosity of the thoracic aorta with normal heart size. Calcified granulomatous disease bilaterally. No acute pulmonary parenchymal or pleural abnormality. Mild degenerative spondylosis in the mid and lower thoracic spine. XR/XR chest 1V portable [id number] IMPRESSION: No acute chest abnormality.
[2022-10-25] MEDS: ipratropium-albuterol 3 mL Neb INHALATION ×2 (11:30→21:01)
[2022-10-25 11:43] LABS: ABG PH Result 7.48 (7.35-7.45); Arterial Blood Gas Hematocrit 40.1 % (37-47); Base Excess ABG 2.9 mmol/L (-2.0-2.0); Blood Gas Allen Test Pos; Blood Gas Operator Identificat CAK; Blood Gas Sample Site Radial, left; Blood Gas Sample Type Arterial; Carboxyhemoglobin 1.4 %THgb (0.4-20.1); HCO3 ABG 26.2 mmol/L (22-26); HGB O2 Sat 86.8 % (95-100); Methemoglobin 0.7 % (0.4-1.5); Oxygen Device NC; PO2 ABG 48.9 mmHg (80.0-100.0); Total Hemoglobin 13.1 g/dL (12-16)
--- NOTE | 2022-10-25 11:47 | ECG_ITS ---
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 Measurements Intervals [place] Rate: 103 P: 55 DC: 148 QRS: 45 QRSD: 73 T: 54 QT: 343 QTc: 451 Interpretive Statements SINUS TACHYCARDIA POSSIBLE LEFT ATRIAL ENLARGEMENT [-0.1mV P-WAVE IN V1/V2] LOW QRS VOLTAGE IN PRECORDIAL LEADS [QRS DEFLECTION < 1.0 mV IN CHEST LEADS] MINIMAL ST DEPRESSION [0.025+ mV ST DEPRESSION] ABNORMAL RHYTHM ECG No previous ECG available for comparison Electronically Signed On 10-25-2022 14:51:08 LUNCHROOM MONITOR by Vini Chauhan M.D. [email or web address]
[2022-10-25 12:01] LABS: Basophils % 0.3 %; Eosinophils % 0.1 %; Hematocrit 43.6 % (37.0-47.0); Hemoglobin 13.4 g/dL (11.5-15.3); Lymphocytes % 14.3 %; Mean Corpuscular HGB Conc 30.7 g/dL (30.0-36.0); Mean Corpuscular Hemoglobin 23.6 pg (28.0-34.0); Mean Corpuscular Volume 76.6 fl (81-99); Mean Platelet Volume 10.9 fL (7.4-10.4); Monocytes # 0.6 10^3/uL (0.2-0.9); Monocytes % 8.5 %; Neutrophils % 75.7 %; Nucleated Red Blood Cells % 0 %; Platelet Count 340 10^3/cmm (130-400); Red Blood Count 5.69 10^6/uL (4.1-5.3); Red Cell Distribution Width 15.4 % (12.1-15.1); White Blood Count 7.3 10^3/uL (4.0-10.0)
[2022-10-25 12:13] LABS: D Dimer 0.91 ug/mIFEU (0-0.59)
--- NOTE | 2022-10-25 12:16 | CT_ITS ---
WS: [id number] CTA OF THE CHEST WITH PULMONARY EMBOLISM PROTOCOL TECHNIQUE: High-resolution contrast enhanced CTA of the chest with coronal and sagittal reformatted i mages with pulmonary embolism protocol. MIP images are also reviewed. CLINICAL INFORMATION: sob, new oxygen req, elevated ddimer COMPARISON: None. DLP: 325.[address] scans at [facility] use at least one of these dose optimization techniques: automated e xposure control; mA and/or kV adjustment per patient size (includes targeted exams where dose is matc hed to clinical indication); or iterative reconstruction. FINDINGS: Proximal main pulmonary arteries are normal. Normal segmental and subsegmental pulmonary ar teries. No evidence of pulmonary embolus. Normal caliber thoracic aorta. Aortic calcification. Vizcarra ry calcification. No axillary lymphadenopathy. No mediastinal or hilar lymphadenopathy. Adrenal glands are normal. Normal caliber upper abdominal aorta.No acute pulmonary infiltrates. No fo mark pneumonia or pleural fluid. Moderate chronic emphysematous changes. Slight bibasilar atelectasis. CT/CT angio chest PE protcl [id number] IMPRESSION: 1. No evidence of pulmonary embolus. 2. No acute pulmonary infiltrates. 3. No focal pneumonia or pleural fluid.
[2022-10-25 12:17] LABS: Lactic Sepsis W/Reflex 1.5 mmol/L (0.5-2.2)
[2022-10-25 12:19] LABS: Troponin(5th) Baseline 8 ng/L (0-10)
[2022-10-25 12:27] LABS: Alanine Aminotransferase 11 U/L (0-33); Albumin Level 4.6 g/dL (3.5-5.2); Alkaline Phosphatase 65 U/L (35-105); Anion Gap 17.8 (5-19); Aspartate Amino Transferase 15 U/L (0-32); Blood Urea Nitrogen 13 mg/dL (8-23); Carbon Dioxide 28 mmol/L (22-29); Chloride 96 mmol/L (98-107); Creatinine Clr Calc Pharmacy 61.5723; Globulin 3.2 g/dL (1.3-4.6); Glucose 96 mg/dL (65-115); NT Pro B Type Natriuretic Pept 272 pg/mL (0-125); Osmolality Calculated 286 mOsm/kg (285-295); Potassium 3.8 mmol/L (3.5-5.1); Sodium 138 mmol/L (136-145); Total Bilirubin 0.3 mg/dL (0.15-1.2); Total Protein 7.8 g/dL (6.6-8.7)
[2022-10-25] MEDS: iohexol 350 mg/mL 500 mL Btl (per mL) IV (12:33)
[2022-10-25] MEDS: doxycycline 100 MG in sodium chloride 0.9% (plus) 100 ML IV (13:15)
--- NOTE | 2022-10-25 13:19 | ECG_ITS ---
[facility] Test Date: 2022-10-25 Pat Name: Mildred Graham Department: Room: Gender: Female Project Technician: : 1950 Requested By: Brandyn Orta Order Number: [id number] Norma MD: Vini Chauhan M.D. Measurements Intervals [place] Rate: 101 P: 59 WI: 157 QRS: 49 QRSD: 77 T: 60 QT: 346 QTc: 450 Interpretive Statements SINUS TACHYCARDIA POSSIBLE LEFT ATRIAL ENLARGEMENT [-0.1mV P-WAVE IN V1/V2] LOW QRS VOLTAGE IN PRECORDIAL LEADS [QRS DEFLECTION < 1.0 mV IN CHEST LEADS] MINIMAL ST DEPRESSION [0.025+ mV ST DEPRESSION] ABNORMAL RHYTHM ECG Compared to ECG 10/25/2022 11:47:24 No significant changes Electronically Signed On 10-26-2022 0:13:29 MATERIALS ANALYST by Vini Chauhan M.D. [id number]
[2022-10-25 13:29] LABS: Procalcitonin 0.08 ng/mL (0-0.5)
[2022-10-25 13:46] LABS: Influenza A by IFA negative (Negative); Influenza B by IFA negative (Negative)
[2022-10-25 13:49] LABS: SARS Covid-2 Antigen Negative (Negative)
--- NOTE | 2022-10-25 14:20 | P.HP_ITS ---
Providers/Chief Complaint Admitting Physician: Emilia Bridges MD Primary Care Provider: Melanie Joyce NP Chief Complaint: Trouble breathing History of Present Illness Mildred Graham is a 72 year old female who presented to the emergency room with chief complaint of increasing difficulty breathing for about a week or so. The first thing she noted was that it was hard to get in a good deep breath. She has a history of former tobacco use but quit smoking in 2008. 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 She has been using more frequently but not seem to get much relief from her dyspnea. Shortness of breath is worse with exertion and after she has had some paroxysms of coughing. No recent fevers or chills. No known sick contacts. At night she gets short of breath after rolling over in bed but admits that it takes a lot of effort for her to roll over in bed due to pain in her back. She attributes the pain in her back to osteoporosis but denies any known history of compression fractures. Cough has been productive although predominantly clear. No blood has been noted. She has not had as much of an appetite lately. Occasionally has some loose stools but denies any constipation. Has had decreased urine output but no dysuria. She does describe runny nose and a scratchy throat but no difficulty swallowing. She has chest pain with deep inspiration. With progressive worsening of her shortness of breath she states that she got to the point today she just could not take it anymore and presented to the emergency room. At triage she was h ypoxic with oxygen saturations in the 70s. She has no prior history of requiring oxygen. She has required up to 6 L by nasal cannula to maintain normal oxygen saturations. ABG showed PaO2 of 48. Given this and pleuritic chest pain, she underwent CTA of the chest. There was no evidence of PE nor any evidence of pulmonary infiltrate or fluid. COVID and influenza A & B screening were negative. Given degree of hypoxemia without a prior history of oxygen requirement along with persistent wheezing and tachypnea, she is being admitted for further evaluation and treatment. She has not required previous hospitalization for respiratory issues. No known history of coronary artery disease. She has had seasonal influenza vaccination this year. She has had 3 COVID shots in total. She does not believe that she is ever had pneumonia vaccination. Review of Systems Const: Reports: fatigue and malaise; Denies: fever(s) or chills ENMT: Reports: nasal congestion; Denies: throat pain (But scratchy) Card: Reports: chest pain (With inspiration) and dyspnea on exertion; Denies: edema or orthopnea Resp: Reports: dyspnea, productive cough, non-productive cough, wheezing, pain on inspiration and chest congestion; Denies: change in phlegm color or hemoptysis GI: Reports: vomiting (Mild posttussive only) and diarrhea (Occasional loose stools); Denies: abdominal pain, nausea or constipation : Denies: difficulty voiding Musc: Reports: back pain (Particularly notable with trying to roll over in bed) and other (No longer requiring cane to ambulate); Denies: extremity pain Skin/Breast: Reports: dry skin Neuro: Reports: weakness in extremities (Generalized rather than focal); Denies: frequent falls Steve/Lymph: Denies: easy bleeding Medications/Allergies Home Medications Medication Instructions Recorded Confirmed Last Taken Type albuterol sulfate 2.5 mg/3 mL 2.5 mg (3 mL) inhalation Q4H PRN 03/13/20 10/25/22 10/24/22 Rx (0.083 %) solution for nebulization shortness of breath or wheezing #180 mL aspirin 81 mg tablet,delayed 81 mg PO EVERY OTHER DAY 03/13/20 10/25/22 10/24/22 History release (Adult Aspirin Regimen) acetaminophen 650 mg 650 mg PO Q12H 05/26/20 10/25/22 10/24/22 History tablet,extended release (Arthritis Pain Relief (acetaminophen) ER) omeprazole 20 mg capsule,delayed 20 mg PO DAILY #90 caps 01/13/22 10/25/22 10/24/22 Rx release albuterol sulfate 90 mcg/actuation See Rx Instructions .Route 04/02/22 10/25/22 10/25/22 Rx aerosol inhaler .COMPLEX #54 grams calcium carbonate 600 mg-vitamin 1 cap PO DAILY 04/02/22 10/25/22 10/24/22 History D3 12.5 mcg (500 unit) capsule (Calcium 600 with Vitamin D3) amlodipine 10 mg tablet 10 mg PO DAILY 10/25/22 10/25/22 10/24/22 History olmesartan 5 mg tablet 5 mg PO DAILY 10/25/22 10/25/2222 History pravastatin 40 mg tablet 40 mg PO DAILY 10/25/22 10/25/22 10/24/22 History sertraline 100 mg tablet 100 mg PO BEDTIME 10/25/22 10/25/22 10/24/22 History Allergies Allergy/AdvReac Type Severity Reaction Status Date / Time Sulfa (Sulfonamide Allergy ALGY-Rash Verified 10/25/22 11:32 Antibiotics) PFSH Acute PFSH: Medical History (Updated 10/25/22 @ 14:50 by Emilia Bridges MD) COPD (chronic obstructive pulmonary disease) Depression GERD (gastroesophageal reflux disease) 1 para 1 Hyperlipidemia Hypertension Osteoporosis Post-traumatic arthritis of right ankle Stress incontinence in female Vitamin D deficiency Surgical History (Updated 10/25/22 @ 14:45 by Emilia Bridges MD) History of cataract surgery bialteral History of elbow surgery left, due to nerve entrapment History of tubal ligation Status post open reduction and internal fixation (ORIF) of fracture (12/2020) Dr. Lao; right pilon fracture, right fibular fracture Family History (Updated 10/25/22 @ 14:43 by Emilia Bridges MD) Father Cancer Type of cancer not known (unknown primary), but was in the lungs Mother , age 54 from respiratory disease, COPD, heavy smoker Lung disease Other Diabetes Social History (Updated 10/25/22 @ 14:44 by Emilia Bridges MD) Smoking and tobacco status: former smoker Alcohol intake: current Alcohol intake frequency: holidays/special occasions only Substance/Drug Use: never Vitals/I&O/Wt Last Vital Signs Temp 97.4 F L 10/25/22 11:10 Pulse 108 H 10/25/22 12:00 Resp 26 H 10/25/22 12:00 BP 130/75 10/25/22 12:00 Pulse Ox 92 10/25/22 12:41 O2 Del Method 10/25/22 11:30 O2 Flow Rate 6 10/25/22 11:30 Weight last 48 hrs Weight 72.575 kg Physical Exam Narrative: Constitutional: Awake and alert, mildly ill-appearing, tachypneic but able to provide history HEENT: Normocephalic, atraumatic, pupils are equally reactive, extraocular movements intact, nasopharynx with some clear rhinorrhea, oropharynx with moist mucous membranes, dentures noted Neck: Supple, no JVD Respiratory: Diffuse wheezing, tachypnea, no accessory muscle use noted but has to pause after every few words to take of breath while providing history, some guarding of chest wall with deep inspiration Cardiovascular: Tachycardic but regular rhythm, no murmurs, heart sounds distant Abdomen: Soft, nontender, positive bowel sounds Extremities: No pitting edema, no calf tenderness Skin: Dry, no bruises or rashes on visible skin Neuro: Speech clear, face symmetric, moves all extremities, no tremors Psych: Normal affect Data 10/25/22 11:38 10/25/22 11:38 Other Labs: Radiology Impressions Chest X-Ray 10/25/22 11:18 IMPRESSION: No acute chest abnormality. Chest CTA 10/25/22 12:16 IMPRESSION: 1. No evidence of pulmonary embolus. 2. No acute pulmonary infiltrates. 3. No focal pneumonia or pleural fluid. Laboratory Results WBC 7.3 10^3/uL (4.0-10.0) 10/25/22 11:38 RBC 5.69 10^6/uL (4.1-5.3) H 10/25/22 11:38 Hgb 13.4 g/dL (11.5-15.3) 10/25/22 11:38 Hct 43.6 % (37.0-47.0) 10/25/22 11:38 MCV 76.6 fl (81-99) L 10/25/22 11:38 MCH 23.6 pg (28.0-34.0) L 10/25/22 11:38 MCHC 30.7 g/dL (30.0-36.0) 10/25/22 11:38 RDW 15.4 % (12.1-15.1) H 10/25/22 11:38 Plt Count 340 10^3/cmm (130-400) 10/25/22 11:38 MPV 10.9 fL (7.4-10.4) H 10/25/22 11:38 Neut % (Auto) 75.7 % 10/25/22 11:38 Lymph % (Auto) 14.3 % 10/25/22 11:38 [place] % (Auto) 8.5 % 10/25/22 11:38 Eos % (Auto) 0.1 % 10/25/22 11:38 Baso % (Auto) 0.3 % 10/25/22 11:38 Neut # (Auto) 5.50 10^3/uL (1.8-7.7) 10/25/22 11:38 Lymph # (Auto) 1.0 10^3/uL (0.8-4.8) 10/25/22 11:38 [place] # (Auto) 0.6 10^3/uL (0.2-0.9) 10/25/22 11:38 Eos # (Auto) 0.0 10^3/uL (0.0-0.8) 10/25/22 11:38 Baso # (Auto) 0.0 10^3/uL (0.0-0.1) 10/25/22 11:38 Nucleated RBC % (auto) 0 % 10/25/22 11:38 Nucleated RBCs # 0.0 /100WBC 10/25/22 11:38 D-Dimer 0.91 ug/mIFEU (0-0.59) H 10/25/22 11:38 Specimen Type Arterial 10/25/22 11:18 Sample Site Radial, left 10/25/22 11:18 ABG pH 7.48 (7.35-7.45) H 10/25/22 11:18 ABG pCO2 35.0 mmHg (35-45) 10/25/22 11:18 ABG pO2 48.9 mmHg (80.0-100.0) L 10/25/22 11:18 ABG HCO3 26.2 mmol/L (22-26) H 10/25/22 11:18 ABG Base Excess 2.9 mmol/L (-2.0-2.0) H 10/25/22 11:18 George Test Pos 10/25/22 11:18 Hematocrit 40.1 % (37-47) 10/25/22 11:18 Hgb O2 Saturation 86.8 % (95-100) L 10/25/22 11:18 Carboxyhemoglobin 1.4 %THgb (0.4-20.1) 10/25/22 11:18 Methemoglobin 0.7 % (0.4-1.5) 10/25/22 11:18 Total Hemoglobin 13.1 g/dL (12-16) 10/25/22 11:18 O2 Delivery Device Nc 10/25/22 11:18 O2 Liters/Min 6.0 % 10/25/22 11:18 Hair Or Beauty Salon Assistant ID Cak 10/25/22 11:18 Sodium 138 mmol/L (136-145) 10/25/22 11:38 Potassium 3.8 mmol/L (3.5-5.1) 10/25/22 11:38 Chloride 96 mmol/L (98-107) L 10/25/22 11:38 Carbon Dioxide 28 mmol/L (22-29) 10/25/22 11:38 Anion Gap 17.8 (5-19) 10/25/22 11:38 BUN 13 mg/dL (8-23) 10/25/22 11:38 Creatinine 0.6 mg/dL (0.5-0.9) 10/25/22 11:38 GFR Calculation Not Reportable 10/25/22 11:38 Glucose 96 mg/dL (65-115) 10/25/22 11:38 Calculated Osmolality 286 mOsm/kg (285-295) 10/25/22 11:38 Lactic Acid 1.5 mmol/L (0.5-2.2) 10/25/22 11:38 Calcium 10.0 mg/dL (8.5-10.5) 10/25/22 11:38 Total Bilirubin 0.3 mg/dL (0.15-1.2) 10/25/22 11:38 AST 15 U/L (0-32) 10/25/22 11:38 ALT 11 U/L (0-33) 10/25/22 11:38 Alkaline Phosphatase 65 U/L (35-105) 10/25/22 11:38 Troponin T Baseline 8 ng/L (0-10) 10/25/22 11:31 NT-Pro-B Natriuret Pep 272 pg/mL (0-125) H 10/25/22 11:38 Total Protein 7.8 g/dL (6.6-8.7) 10/25/22 11:38 Albumin 4.6 g/dL (3.5-5.2) 10/25/22 11:38 Globulin 3.2 g/dL (1.3-4.6) 10/25/22 11:38 Procalcitonin 0.08 ng/mL (0-0.5) 10/25/22 11:38 Influenza Type A Ag negative (Negative) 10/25/22 12:58 Influenza Type B Ag negative (Negative) 10/25/22 12:58 SARS-CoV-2 Ag (Rapid) Negative (Negative) 10/25/22 12:58 Micro: Microbiology 10/25/22 12:07 Blood Culture - Preliminary Blood SPECIMEN COLLECTED 10/25/22 12:02 Blood Culture - Preliminary Blood SPECIMEN COLLECTED A&P Assessment and plan (1) COPD (chronic obstructive pulmonary disease): Acute on chronic exacerbation, currently requiring oxygen therapy which is new Chronically on albuterol inhaler and nebulizers as needed with recent increased utilization Qualifiers: COPD type: COPD with acute exacerbation Qualified Code(s): J44.1 - Chronic obstructive pulmonary disease with (acute) exacerbation (2) Hypertension: Chronically on amlodipine and olmesartan Qualifiers: Hypertension type: primary hypertension Qualified Code(s): I10 - Essential (primary) hypertension (3) Hyperlipidemia: Chronically on pravastatin Qualifiers: Hyperlipidemia type: mixed hyperlipidemia Qualified Code(s): E78.2 - Mixed hyperlipidemia (4) GERD (gastroesophageal reflux disease): Chronically on omeprazole Qualifiers: Esophagitis presence: without esophagitis Qualified Code(s): K21.9 - Gastro-esophageal reflux disease without esophagitis (5) Osteoporosis: Chronically on calcium plus vitamin D Qualifiers: Osteoporosis type: age-related Presence of current pathological fracture: without current pathological fracture Qualified Code(s): M81.0 - Age- related osteoporosis without current pathological fracture (6) Depression: Chronically on sertraline Plan Observation admission Systemic and inhaled steroids Doxycycline Follow up pending breathing treatments Breathing treatments Incentive spirometer and flutter device Wean oxygen as able Increase activity as tolerated Continue home amlodipine and ARB Continue home statin Continue home PPI Continue home calcium plus vitamin D Continue home sertraline Pneumovax as per discussion with patient Currently anticipate discharge home, possibly with oxygen therapy added and close outpatient follow-up to primary care provider Kylie Joyce Supportive care otherwise Findings, concerns and plans were discussed with patient and she was given an opportunity to ask questions Full code Attestations Medical Necessity Statement*: Currently anticipate a stay less than two midnights in this patient with a known history of COPD presenting with hypoxemia and progressively worsening dyspnea c onsistent with COPD exacerbation requiring hospitalization and oxygen therapy for the first time. Hopefully with administration of breathing treatments, steroids and other care as described above she will improve quickly. Otherwise she may require transition to inpatient status. Currently requiring 5 L by nasal cannula to maintain saturations. Coding Level of Care Code Acute Channel Lip Stiffener Insoles for Chg Fwd Diagnoses COPD (chronic obstructive pulmonary disease) J44.1 COPD type: COPD with acute exacerbation Hypertension I10 Hypertension type: primary hypertension Hyperlipidemia E78.2 Hyperlipidemia type: mixed hyperlipidemia GERD (gastroesophageal reflux disease) K21.9 Esophagitis presence: without esophagitis Osteoporosis M81.0 Osteoporosis type: age-related Presence of current pathological fracture: without current pathological fracture Depression F32.9
[2022-10-25 14:31] LABS: Troponin 5 2HR 8.04 ng/L (0-10)
[2022-10-25 14:44] LABS: Troponin 5 2HR Delta 0.04 ABS# (0-10)
[2022-10-25 15:08] LABS: Adenovirus Not Detected (NOT DETECT); Chlamydia Pneumoniae Not Detected (NOT DETECT); Coronavirus 229E,HKU1,NL63,OC4 Not Detected (NOT DETECT); Human Metapneumovirus Not Detected (NOT DETECT); Human Rhinovirus/Enterovirus Not Detected (NOT DETECT); Influenza A Not Detected (NOT DETECT); Influenza A H1 Not Detected (NOT DETECT); Influenza A H1-2009 Detected (NOT DETECT); Influenza A H3 Not Detected (NOT DETECT); Influenza B Not Detected (NOT DETECT); Mycoplasma Pneumoniae Not Detected (NOT DETECT); Parainfluenza Virus Type 1 Not Detected (NOT DETECT); Parainfluenza Virus Type 2 Not Detected (NOT DETECT); Parainfluenza Virus Type 3 Not Detected (NOT DETECT); Parainfluenza Virus Type 4 Not Detected (NOT DETECT); Respiratory Syncytial Virus A Not Detected (NOT DETECT); Respiratory Syncytial Virus B Not Detected (NOT DETECT); SARS-COV-2 Not Detected (NOT DETECT)
--- NOTE | 2022-10-25 17:19 | ECG_ITS ---
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 Measurements Intervals [place] Rate: 91 P: 60 MS: 157 QRS: 59 QRSD: 73 T: 68 QT: 350 QTc: 431 Interpretive Statements SINUS RHYTHM POSSIBLE LEFT ATRIAL ENLARGEMENT [-0.1mV P-WAVE IN V1/V2] LOW QRS VOLTAGE IN PRECORDIAL LEADS [QRS DEFLECTION < 1.0 mV IN CHEST LEADS] Compared to ECG 10/25/2022 13:58:19 Sinus tachycardia no longer present ST (T wave) deviation no longer present Electronically Signed On 10-26-2022 0:14:55 JIG HAND by Vini Chauhan M.D. [id number]
[2022-10-25 18:08] LABS: Troponin 5 6HR 7.99 ng/L (0-10)
[2022-10-25 18:21] LABS: Troponin 5 6HR Delta -0.01 ng/L (0-12)
--- NOTE | 2022-10-25 18:38 | PC.NURSE ---
spoke with Dr. Bridges regarding doxycycline order, okay to give this evenings PO dose.
[2022-10-25] MEDS: oseltamivir phosphate 75 mg Capsule PO (18:55)
[2022-10-25] MEDS: doxycycline 100 mg Tablet PO (18:55)
--- NOTE | 2022-10-25 18:58 | PC.NURSE ---
report given to CLIFTON Gage to assume care
[2022-10-25] MEDS: sertraline 100 mg Tablet PO (20:39)
[2022-10-25] MEDS: pneumococcal (23 valent) SDV 0.5 mL IM (20:40)
[2022-10-25] MEDS: atorvastatin 40 mg Tablet PO (20:40)
[2022-10-25] MEDS: enoxaparin 40 mg/0.4 mL Syringe SUBCUT (20:40)
[2022-10-25] MEDS: budesonide 0.5 mg/2 mL Neb INHALATION (21:01)
[2022-10-26] VITALS (10 sets, daily range): BP systolic 114–134; BP diastolic 67–71; PULSE 85–106; RESP 16–20; TEMP 36.6–36.9; O2SAT 90–96
[2022-10-26] MEDS: budesonide 0.5 mg/2 mL Neb INHALATION ×2 (07:55→20:45)
[2022-10-26] MEDS: ipratropium-albuterol 3 mL Neb INHALATION ×4 (07:55→20:46)
[2022-10-26] MEDS: doxycycline 100 mg Tablet PO ×2 (09:53→17:19)
[2022-10-26] MEDS: oseltamivir phosphate 75 mg Capsule PO ×2 (09:53→17:19)
[2022-10-26] MEDS: calcium carb-vit d 600mg/400unit 1 Tablet 1 EACH PO (09:53)
[2022-10-26] MEDS: pantoprazole DR 40 mg Tablet PO (09:53)
[2022-10-26] MEDS: docusate sodium 100 mg Capsule PO ×2 (09:53→17:19)
[2022-10-26] MEDS: losartan 50 mg Tablet 25 MG PO (09:54)
[2022-10-26] MEDS: amlodipine 10 mg Tablet PO (09:54)
--- NOTE | 2022-10-26 13:02 | P.PN_ITS ---
Subjective Subjective: Patient was seen and examined this morning, generalized body pain has improved though she complains of chronic back pain, shortness of breath is improved. Has remained afebrile, currently saturating well on 4 Ls oxygen through nasal cannula. Medications: Medication Review Details: Generic Name Dose Route Start Last Admin Trade Name Tyler PRN Reason Stop Dose Admin Albuterol/Ipratrop ium 3 ml 10/25/22 18:35 10/26/22 12:09 Ipratropium-Albu terol 3 Ml Neb INHALATION 3 ml QID.RESPIRATORY S CH Administration Amlodipine Besylat e 10 mg 10/26/22 09:00 10/26/22 09:54 Amlodipine 10 Mg Tablet PO 10 mg DAILY MILAGROS Administration Atorvastatin Calci um 40 mg 10/25/22 21:00 10/25/22 20:40 Atorvastatin 40 Mg Tablet PO 40 mg BEDTIME MILAGROS Administration Budesonide 0.5 mg 10/25/22 20:00 10/26/22 07:55 Budesonide 0.5 M g/2 Ml Neb INHALATION 0.5 mg BID.RESPIRATORY S CH Administration Calcium Carbonate 1 each 10/26/22 09:00 10/26/22 09:53 Calcium Carb-Vit D 600mg/400unit 1 Tablet PO 1 each DAILY MILAGROS Administration Docusate Sodium 100 mg 10/25/22 20:05 10/26/22 09:53 Docusate Sodium 100 Mg Capsule PO 100 mg BID MILAGROS Administration Doxycycline Monohy drate 100 mg 10/25/22 18:35 10/26/22 09:53 Doxycycline 100 Mg Tablet PO 100 mg BID MILAGROS Administration Protocol Enoxaparin Sodium 40 mg 10/25/22 20:05 10/25/22 20:40 Enoxaparin 40 Mg /0.4 Ml Syringe SUBCUT 40 mg Q24H MILAGROS Administration Losartan Potassium 25 mg 10/26/22 09:00 10/26/22 09:54 Losartan 50 Mg T ablet PO 25 mg DAILY MILAGROS Administration Methylprednisolone Sodium Succinate 40 mg 10/26/22 09:30 10/26/22 10:56 Methylprednisolo ne Sod Succ 40 Mg/ Ml Inj IVP 40 mg Q6H MILAGROS Administration Oseltamivir Phosph ate 75 mg 10/25/22 18:35 10/26/22 09:53 Oseltamivir Phos phate 75 Mg Capsul e PO 75 mg BID MILAGROS Administration Pantoprazole Sodiu m 40 mg 10/26/22 09:00 10/26/22 09:[address] 40 Mg Tablet PO 40 mg DAILY MILAGROS Administration Sertraline HCl 100 mg 10/25/22 21:00 10/25/22 20:39 Sertraline 100 M g Tablet PO 100 mg BEDTIME MILAGROS Administration Vitals/I&O/Wt Last Vital Signs Temp 98 F 10/26/22 07:27 Pulse 101 H 10/26/22 12:11 Resp 20 H 10/26/22 12:00 BP 124/71 10/26/22 09:54 Pulse Ox 90 10/26/22 12:00 O2 Del Method 10/26/22 12:00 O2 Flow Rate 4 10/26/22 12:00 10/25/22 10/26/22 10/26/22 22:59 06:59 14:59 Intake Total 340 / 340 120 / 460 Output Total 150 / 150 250 / 250 Balance 190 / 190 120 / 310 -250 / -250 Weight last 48 hrs Weight 72.575 kg Physical Exam Resp: COMMON NORMALS: clear to auscultation bilaterally AUSCULTATION: clear to auscultation bilaterally Cardio: COMMON NORMALS: regular rate, regular rhythm, S1 normal heart sound present, S2 normal heart sound present, No gallops present (Cardio), No murmurs present (Cardio), No rub (Cardio) and Peripheral pulses 2+ throughout RATE: regular rate RHYTHM: regular rhythm HEART SOUNDS: S1 normal heart sound present and S2 normal heart sound present PERIPHERAL PULSES: Peripheral pulses 2+ throughout GI: COMMON NORMALS: Normal to inspection, nondistended, normoactive bowel sounds present, Soft to palpation, non-tender, No hepatosplenomegaly present and no masses AUSCULTATION: Yes normoactive bowel sounds PALPATION: Yes Soft to palpation and Yes No hepatosplenomegaly present RECTAL EXAM: deferred Extremity: COMMON NORMALS: no clubbing, cyanosis or edema and no pedal edema Data 10/25/22 11:38 10/25/22 11:38 Micro: Microbiology 10/25/22 12:07 Blood Culture - Preliminary Blood NEGATIVE TO DATE 10/25/22 12:02 Blood Culture - Preliminary Blood NEGATIVE TO DATE A&P Assessment and plan (1) COPD (chronic obstructive pulmonary disease): Acute on chronic exacerbation, currently requiring oxygen therapy which is new Chronically on albuterol inhaler and nebulizers as needed with recent increased utilization Qualifiers: COPD type: COPD with acute exacerbation Qualified Code(s): J44.1 - Chronic obstructive pulmonary disease with (acute) exacerbation (2) Hypertension: Chronically on amlodipine and olmesartan Qualifiers: Hypertension type: primary hypertension Qualified Code(s): I10 - Essential (primary) hypertension (3) Hyperlipidemia: Chronically on pravastatin Qualifiers: Hyperlipidemia type: mixed hyperlipidemia Qualified Code(s): E78.2 - Mixed hyperlipidemia (4) GERD (gastroesophageal reflux disease): Chronically on omeprazole Qualifiers: Esophagitis presence: without esophagitis Qualified Code(s): K21.9 - Gastro-esophageal reflux disease without esophagitis (5) Osteoporosis: Chronically on calcium plus vitamin D Qualifiers: Osteoporosis type: age-related Presence of current pathological fracture: without current pathological fracture Qualified Code(s): M81.0 - Age- related osteoporosis without current pathological fracture (6) Depression: Chronically on sertraline Plan 72-year-old female with past medical history of COPD not on home oxygen, hypertension GERD, dyslipidemia Was brought in with chief complaint of worsening shortness of breath, clear productive cough for about a week, generalized weakness, malaise fatigue and pain going on for the last few days. She was admitted for the management of: Assessment COPD exacerbation Influenza A H1 positive Hypertension Plan: CTA chest: No evidence of pulmonary embolus.No acute pulmonary infiltrates. No focal pneumonia or pleural fluid. Blood culture:NTD Sputum gram stain and culture Continue duo nebs Continue budesonide inhaler Continue Solu-Medrol 40 IV every 6 Continue Tamiflu Continue doxycycline Supplemental oxygen as needed, incentive spirometer flutter valve Continue amlodipine and losartan DVT prophylaxis on Lovenox CODE STATUS : Full code Attestations Medical Necessity Statement*: Patient is still in hospital management of COPD exacerbation and influenza. Time Spent in Patient Care: Greater than 35 minutes (>than 50% of time spent in counselling and/or direct pt care on unit) . Coding Level of Care Code Acute Cabin Equipment Supervisor for Angelag Fwd Exam Expanded Problem Focused Diagnoses COPD (chronic obstructive pulmonary disease) J44.1 COPD type: COPD with acute exacerbation Hypertension I10 Hypertension type: primary hypertension Hyperlipidemia E78.2 Hyperlipidemia type: mixed hyperlipidemia GERD (gastroesophageal reflux disease) K21.9 Esophagitis presence: without esophagitis Osteoporosis M81.0 Osteoporosis type: age-related Presence of current pathological fracture: without current pathological fracture Depression F32.9
--- NOTE | 2022-10-26 13:10 | PC.CHAP ---
Pastoral Care Encounter/Spiritual Assessment Type of Contact [] Declined supervisor bleach plant visit [] Patient/Family/Request visit [] Outpatient visit [] Follow-up visit [] Physician referral [] Code/Alert [x] Routine visit [] Staff referral [] Actively dying [] Patient sleeping [] Family support [] [] Out of room [] Palliative care [] [] Receiving care in room [] Pre-surgical visit [] Trauma [] Long length of stay [] ICU visit [] Other: Relational/Emotional Strength [x] Patient feels connected with others/family/visitors/staff [] Distress [] Loneliness/isolation [] Abandonment Spirituality of Patient [x] Person of Joan [] Attends Anabaptism of their Joan [] Believes in Prayer [] Reads Bible or Synagogue materials [] There are Spiritual issues to be addressed Manager Bakery Interventions [x] Prayer [x] Active listening [] Non-anxious presence [] Spiritual/emotional support [] Crisis/trauma care [] Spiritual counseling [] Bereavement support [] Provided bereavement packet [] Provided Bible/devotional materials [] Provided toy/stuffed animal, coloring book to patient or family member [] Provided Communion [] Anointing/[employer] [] Salvation [x] Completed spiritual assessment [] Other: Impact on Illness or Injury [] Angry [] Fearful [] Anxious [] Often cries [] Exhaustion [] Unable to work [] Unable to attend yazidi [] Unable to walk/stand [] Unable to read [] Unable to drive [] Unable to eat/drink [] Unable to sleep [] Unable to be with family [] Patient intubated [] Other: Summary Time spent with patient
[2022-10-26] MEDS: sertraline 100 mg Tablet PO (20:53)
[2022-10-26] MEDS: atorvastatin 40 mg Tablet PO (20:53)
[2022-10-26] MEDS: enoxaparin 40 mg/0.4 mL Syringe SUBCUT (20:54)
[2022-10-27] VITALS (11 sets, daily range): BP systolic 110–150; BP diastolic 56–77; PULSE 87–107; RESP 16–22; TEMP 36.7–37.6; O2SAT 90–95
[2022-10-27 06:11] LABS: Basophils % 0.1 %; Hematocrit 39.5 % (37.0-47.0); Hemoglobin 12.2 g/dL (11.5-15.3); Lymphocytes # 0.4 10^3/uL (0.8-4.8); Lymphocytes % 2.1 %; Mean Corpuscular HGB Conc 30.9 g/dL (30.0-36.0); Mean Corpuscular Hemoglobin 23.3 pg (28.0-34.0); Mean Corpuscular Volume 75.4 fl (81-99); Mean Platelet Volume 11.1 fL (7.4-10.4); Monocytes # 0.6 10^3/uL (0.2-0.9); Monocytes % 3.5 %; Neutrophils # 17.01 10^3/uL (1.8-7.7); Neutrophils % 93.7 %; Nucleated Red Blood Cells % 0 %; Platelet Count 343 10^3/cmm (130-400); Red Blood Count 5.24 10^6/uL (4.1-5.3); Red Cell Distribution Width 15.3 % (12.1-15.1); White Blood Count 18.2 10^3/uL (4.0-10.0)
[2022-10-27 06:27] LABS: Anion Gap 15.4 (5-19); Blood Urea Nitrogen 21 mg/dL (8-23); Calcium 10.2 mg/dL (8.5-10.5); Carbon Dioxide 27 mmol/L (22-29); Chloride 101 mmol/L (98-107); Creatinine Clr Calc Pharmacy 61.5723; Glucose 149 mg/dL (65-115); Osmolality Calculated 296 mOsm/kg (285-295); Potassium 3.4 mmol/L (3.5-5.1); Sodium 140 mmol/L (136-145)
[2022-10-27] MEDS: budesonide 0.5 mg/2 mL Neb INHALATION ×2 (08:18→21:29)
[2022-10-27] MEDS: ipratropium-albuterol 3 mL Neb INHALATION ×4 (08:18→21:29)
[2022-10-27] MEDS: doxycycline 100 mg Tablet PO ×2 (08:46→17:29)
[2022-10-27] MEDS: amlodipine 10 mg Tablet PO (08:46)
[2022-10-27] MEDS: pantoprazole DR 40 mg Tablet PO (08:46)
[2022-10-27] MEDS: docusate sodium 100 mg Capsule PO ×2 (08:46→17:29)
[2022-10-27] MEDS: losartan 50 mg Tablet 25 MG PO (08:47)
[2022-10-27] MEDS: oseltamivir phosphate 75 mg Capsule PO ×2 (08:47→17:30)
[2022-10-27] MEDS: calcium carb-vit d 600mg/400unit 1 Tablet 1 EACH PO (08:47)
--- NOTE | 2022-10-27 11:59 | P.PN_ITS ---
Subjective Subjective: Patient was seen and examined this morning, denies any significant shortness of breath, currently on 4 Ls oxygen, do not use oxygen at home has been afebrile so far , will try to wean her off oxygen today and see how she does without oxygen,hopefully she can be discharged home, without home oxygen. Medications: Medication Review Details: Generic Name Dose Route Start Last Admin Trade Name Tyler PRN Reason Stop Dose Admin Albuterol/Ipratrop ium 3 ml 10/25/22 18:35 10/27/22 08:18 Ipratropium-Albu terol 3 Ml Neb INHALATION 3 ml QID.RESPIRATORY S CH Administration Amlodipine Besylat e 10 mg 10/26/22 09:00 10/27/22 08:46 Amlodipine 10 Mg Tablet PO 10 mg DAILY MILAGROS Administration Atorvastatin Calci um 40 mg 10/25/22 21:00 10/26/22 20:53 Atorvastatin 40 Mg Tablet PO 40 mg BEDTIME MILAGROS Administration Budesonide 0.5 mg 10/25/22 20:00 10/27/22 08:18 Budesonide 0.5 M g/2 Ml Neb INHALATION 0.5 mg BID.RESPIRATORY S CH Administration Calcium Carbonate 1 each 10/26/22 09:00 10/27/22 08:47 Calcium Carb-Vit D 600mg/400unit 1 Tablet PO 1 each DAILY MILAGROS Administration Docusate Sodium 100 mg 10/25/22 20:05 10/27/22 08:46 Docusate Sodium 100 Mg Capsule PO 100 mg BID MILAGROS Administration Doxycycline Monohy drate 100 mg 10/25/22 18:35 10/27/22 08:46 Doxycycline 100 Mg Tablet PO 100 mg BID MILAGROS Administration Protocol Enoxaparin Sodium 40 mg 10/25/22 20:05 10/26/22 20:54 Enoxaparin 40 Mg /0.4 Ml Syringe SUBCUT 40 mg Q24H MILAGROS Administration Losartan Potassium 25 mg 10/26/22 09:00 10/27/22 08:47 Losartan 50 Mg T ablet PO 25 mg DAILY MILAGROS Administration Methylprednisolone Sodium Succinate 40 mg 10/26/22 09:30 10/27/22 08:47 Methylprednisolo ne Sod Succ 40 Mg/ Ml Inj IVP 40 mg Q6H MILAGROS Administration Oseltamivir Phosph ate 75 mg 10/25/22 18:35 10/27/22 08:47 Oseltamivir Phos phate 75 Mg Capsul e PO 75 mg BID MILAGROS Administration Pantoprazole Sodiu m 40 mg 10/26/22 09:00 10/27/22 08:[address] 40 Mg Tablet PO 40 mg DAILY MILAGROS Administration Sertraline HCl 100 mg 10/25/22 21:00 10/26/22 20:53 Sertraline 100 M g Tablet PO 100 mg BEDTIME MILAGROS Administration Vitals/I&O/Wt Last Vital Signs Temp 98.3 F 10/27/22 11:16 Pulse 99 10/27/22 11:16 Resp 18 10/27/22 11:16 BP 110/67 10/27/22 11:16 Pulse Ox 90 10/27/22 11:16 O2 Del Method 10/27/22 09:00 O2 Flow Rate 4 10/27/22 09:00 10/26/22 10/27/22 10/27/22 22:59 06:59 14:59 Intake Total 350 / 350 Output Total 300 / 550 Balance -300 / -190 350 / 350 Physical Exam Resp: COMMON NORMALS: clear to auscultation bilaterally AUSCULTATION: clear to auscultation bilaterally Cardio: COMMON NORMALS: regular rate, regular rhythm, S1 normal heart sound present, S2 normal heart sound present, No gallops present (Cardio), No murmurs present (Cardio), No rub (Cardio) and Peripheral pulses 2+ throughout RATE: regular rate RHYTHM: regular rhythm HEART SOUNDS: S1 normal heart sound present and S2 normal heart sound present PERIPHERAL PULSES: Peripheral pulses 2+ throughout GI: COMMON NORMALS: Normal to inspection, nondistended, normoactive bowel sounds present, Soft to palpation, non-tender, No hepatosplenomegaly present and no masses AUSCULTATION: Yes normoactive bowel sounds PALPATION: Yes Soft to palpation and Yes No hepatosplenomegaly present RECTAL EXAM: deferred Extremity: COMMON NORMALS: no clubbing, cyanosis or edema and no pedal edema Data 10/27/22 05:56 10/27/22 05:56 Micro: Microbiology 10/25/22 12:07 Blood Culture - Preliminary Blood NEGATIVE TO DATE 10/25/22 12:02 Blood Culture - Preliminary Blood NEGATIVE TO DATE A&P Assessment and plan (1) COPD (chronic obstructive pulmonary disease): Acute on chronic exacerbation, currently requiring oxygen therapy which is new Chronically on albuterol inhaler and nebulizers as needed with recent increased utilization Qualifiers: COPD type: COPD with acute exacerbation Qualified Code(s): J44.1 - Chronic obstructive pulmonary disease with (acute) exacerbation (2) Hypertension: Chronically on amlodipine and olmesartan Qualifiers: Hypertension type: primary hypertension Qualified Code(s): I10 - Essential (primary) hypertension (3) Hyperlipidemia: Chronically on pravastatin Qualifiers: Hyperlipidemia type: mixed hyperlipidemia Qualified Code(s): E78.2 - Mixed hyperlipidemia (4) GERD (gastroesophageal reflux disease): Chronically on omeprazole Qualifiers: Esophagitis presence: without esophagitis Qualified Code(s): K21.9 - Gastro-esophageal reflux disease without esophagitis (5) Osteoporosis: Chronically on calcium plus vitamin D Qualifiers: Osteoporosis type: age-related Presence of current pathological fracture: without current pathological fracture Qualified Code(s): M81.0 - Age- related osteoporosis without current pathological fracture (6) Depression: Chronically on sertraline Plan 72-year-old female with past medical history of COPD not on home oxygen, hypertension GERD, dyslipidemia Was brought in with chief complaint of worsening shortness of breath, clear productive cough for about a week, generalized weakness, malaise fatigue and pain going on for the last few days. She was admitted for the management of: Assessment COPD exacerbation Influenza A H1 positive Hypertension Plan: CTA chest: No evidence of pulmonary embolus.No acute pulmonary infiltrates. No focal pneumonia or pleural fluid. Blood culture:NTD Sputum gram stain and culture Continue duo nebs Continue budesonide inhaler Continue Solu-Medrol 40 IV every 6 Continue Tamiflu to complete a 5-day course Continue doxycycline Supplemental oxygen as needed, incentive spirometer flutter valve Continue amlodipine and losartan DVT prophylaxis on Lovenox CODE STATUS : Full code Attestations Medical Necessity Statement*: Patient is still in hospital management of influenza, hypoxia. 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
--- NOTE | 2022-10-27 12:21 | PC.RESP ---
Patient satting 85% on 3lpm, no further attempt made.
[2022-10-27] MEDS: enoxaparin 40 mg/0.4 mL Syringe SUBCUT (20:30)
[2022-10-27] MEDS: sertraline 100 mg Tablet PO (20:30)
[2022-10-27] MEDS: atorvastatin 40 mg Tablet PO (20:30)
[2022-10-28] VITALS (9 sets, daily range): BP systolic 115–146; BP diastolic 69–76; PULSE 89–111; RESP 16–22; TEMP 36.6–36.9; O2SAT 78–94
[2022-10-28 05:18] LABS: Anion Gap 14.3 (5-19); Blood Urea Nitrogen 24 mg/dL (8-23); Carbon Dioxide 27 mmol/L (22-29); Chloride 102 mmol/L (98-107); Creatinine Clr Calc Pharmacy 61.5723; Glucose 143 mg/dL (65-115); Osmolality Calculated 297 mOsm/kg (285-295); Potassium 3.3 mmol/L (3.5-5.1); Sodium 140 mmol/L (136-145)
[2022-10-28] MEDS: ipratropium-albuterol 3 mL Neb INHALATION ×2 (08:16→11:36)
[2022-10-28] MEDS: budesonide 0.5 mg/2 mL Neb INHALATION (08:16)
[2022-10-28] MEDS: losartan 50 mg Tablet 25 MG PO (09:56)
[2022-10-28] MEDS: oseltamivir phosphate 75 mg Capsule PO (09:56)
[2022-10-28] MEDS: calcium carb-vit d 600mg/400unit 1 Tablet 1 EACH PO (09:56)
[2022-10-28] MEDS: pantoprazole DR 40 mg Tablet PO (09:56)
[2022-10-28] MEDS: doxycycline 100 mg Tablet PO (09:56)
[2022-10-28] MEDS: amlodipine 10 mg Tablet PO (09:56)
--- NOTE | 2022-10-28 10:17 | P.DS_ITS ---
Discharge Providers Date of Admission: 10/25/22 20:04 Date of Discharge: October 28, 2022 Attending Provider at Admission: Emilia Bridges MD Attending Provider at Discharge: Paul Ho MD Primary Care Provider: Melanie Joyce NP Diagnoses at Discharge Discharge Diagnosis (1) COPD (chronic obstructive pulmonary disease): Status: Chronic Qualifiers: COPD type: COPD with acute exacerbation Qualified Code(s): J44.1 - Chronic obstructive pulmonary disease with (acute) exacerbation (2) Hypertension: Status: Chronic Qualifiers: Hypertension type: primary hypertension Qualified Code(s): I10 - Essential (primary) hypertension (3) Hyperlipidemia: Status: Chronic Qualifiers: Hyperlipidemia type: mixed hyperlipidemia Qualified Code(s): E78.2 - Mixed hyperlipidemia (4) GERD (gastroesophageal reflux disease): Status: Chronic Qualifiers: Esophagitis presence: without esophagitis Qualified Code(s): K21.9 - Gastro-esophageal reflux disease without esophagitis (5) Osteoporosis: Status: Chronic Qualifiers: Osteoporosis type: age-related Presence of current pathological frac ture: without current pathological fracture Qualified Code(s): M81.0 - Age- related osteoporosis without current pathological fracture (6) Depression: Status: Chronic Reason for Visit Reason for Visit: Trouble breathing Hospital Course Hospital Course 72-year-old female with past medical history of COPD not on home oxygen, hypertension GERD, dyslipidemia Was brought in with chief complaint of worsening shortness of breath, clear productive cough for about a week, generalized weakness, malaise fatigue and pain going on for the last few days. She was admitted for the management of:COPD exacerbation,Influenza A H1 positive, Hypertension. CTA chest done during hospital stay: ?No evidence of pulmonary embolus.No acute pulmonary infiltrates. No focal pneumonia or pleural fluid.,Blood culture:negative, she was kept on steroids Tamiflu doxycycline, supplemental oxygen as needed incentive spirometer flutter valve, to which she responded well, at the time of discharge her shortness of breath was improved, she qualified for 6 L home oxygen on ambulation. she was afebrile hemodynamically stable, At home she uses albuterol inhaler as needed as well as, Tala, I have added Pulmicort inhaler. Overall patient responded well to above medical management she is being discharged home in stable condition. She will follow PCP as outpatient. Physical Exam Resp: OTHER: Minimal occasional whezzing Cardio: COMMON NORMALS: regular rate, regular rhythm, S1 normal heart sound present, S2 normal heart sound present, No gallops present (Cardio), No murmurs present (Cardio), No rub (Cardio) and Peripheral pulses 2+ throughout RATE: regular rate RHYTHM: regular rhythm HEART SOUNDS: S1 normal heart sound present and S2 normal heart sound present PERIPHERAL PULSES: Peripheral pulses 2+ throughout GI: COMMON NORMALS: Normal to inspection, nondistended, normoactive bowel sounds present, Soft to palpation, non-tender, No hepatosplenomegaly present and no masses AUSCULTATION: Yes normoactive bowel sounds PALPATION: Yes Soft to palpation and Yes No hepatosplenomegaly present RECTAL EXAM: deferred Extremity: COMMON NORMALS: no clubbing, cyanosis or edema and no pedal edema Discharge Data Studies Completed and Pending Completed Studies During Hospitalization Category Date Time Status CTA chest [CT angio chest PE protcl [id number]] Stat Cat Scan 10/25/22 12:16 Completed XR chest 1V portable [id number] Stat Exams 10/25/22 11:18 Completed Pending at discharge Category Date Time Status BMP [Basic Metabolic Panel] AM LABS Lab 10/29/22 04:00 Ordered Blood Culture Stat Lab 10/25/22 12:07 Results Sputum Culture and Gram Stain Routine Lab 10/26/22 12:45 Results Radiology Impressions Chest X-Ray 10/25/22 11:18 IMPRESSION: No acute chest abnormality. Chest CTA 10/25/22 12:16 IMPRESSION: 1. No evidence of pulmonary embolus. 2. No acute pulmonary infiltrates. 3. No focal pneumonia or pleural fluid. Laboratory Results WBC 18.2 10^3/uL (4.0-10.0) H 10/27/22 05:56 RBC 5.24 10^6/uL (4.1-5.3) 10/27/22 05:56 Hgb 12.2 g/dL (11.5-15.3) 10/27/22 05:56 Hct 39.5 % (37.0-47.0) 10/27/22 05:56 MCV 75.4 fl (81-99) L 10/27/22 05:56 MCH 23.3 pg (28.0-34.0) L 10/27/22 05:56 MCHC 30.9 g/dL (30.0-36.0) 10/27/22 05:56 RDW 15.3 % (12.1-15.1) H 10/27/22 05:56 Plt Count 343 10^3/cmm (130-400) 10/27/22 05:56 MPV 11.1 fL (7.4-10.4) H 10/27/22 05:56 Neut % (Auto) 93.7 % 10/27/22 05:56 Lymph % (Auto) 2.1 % 10/27/22 05:56 [place] % (Auto) 3.5 % 10/27/22 05:56 Eos % (Auto) 0.0 % 10/27/22 05:56 Baso % (Auto) 0.1 % 10/27/22 05:56 Neut # (Auto) 17.01 10^3/uL (1.8-7.7) H 10/27/22 05:56 Lymph # (Auto) 0.4 10^3/uL (0.8-4.8) L 10/27/22 05:56 [place] # (Auto) 0.6 10^3/uL (0.2-0.9) 10/27/22 05:56 Eos # (Auto) 0.0 10^3/uL (0.0-0.8) 10/27/22 05:56 Baso # (Auto) 0.0 10^3/uL (0.0-0.1) 10/27/22 05:56 Nucleated RBC % (auto) 0 % 10/27/22 05:56 Nucleated RBCs # 0.0 /100WBC 10/27/22 05:56 D-Dimer 0.91 ug/mIFEU (0-0.59) H 10/25/22 11:38 Specimen Type Arterial 10/25/22 11:18 Sample Site Radial, left 10/25/22 11:18 ABG pH 7.48 (7.35-7.45) H 10/25/22 11:18 ABG pCO2 35.0 mmHg (35-45) 10/25/22 11:18 ABG pO2 48.9 mmHg (80.0-100.0) L 10/25/22 11:18 ABG HCO3 26.2 mmol/L (22-26) H 10/25/22 11:18 ABG Base Excess 2.9 mmol/L (-2.0-2.0) H 10/25/22 11:18 George Test Pos 10/25/22 11:18 Hematocrit 40.1 % (37-47) 10/25/22 11:18 Hgb O2 Saturation 86.8 % (95-100) L 10/25/22 11:18 Carboxyhemoglobin 1.4 %THgb (0.4-20.1) 10/25/22 11:18 Methemoglobin 0.7 % (0.4-1.5) 10/25/22 11:18 Total Hemoglobin 13.1 g/dL (12-16) 10/25/22 11:18 O2 Delivery Device Nc 10/25/22 11:18 O2 Liters/Min 6.0 % 10/25/22 11:18 Natural Gas Engineer ID Cak 10/25/22 11:18 Sodium 140 mmol/L (136-145) 10/28/22 04:33 Potassium 3.3 mmol/L (3.5-5.1) L 10/28/22 04:33 Chloride 102 mmol/L (98-107) 10/28/22 04:33 Carbon Dioxide 27 mmol/L (22-29) 10/28/22 04:33 Anion Gap 14.3 (5-19) 10/28/22 04:33 BUN 24 mg/dL (8-23) H 10/28/22 04:33 Creatinine 0.7 mg/dL (0.5-0.9) 10/28/22 04:33 GFR Calculation Not Reportable 10/28/22 04:33 Glucose 143 mg/dL (65-115) H 10/28/22 04:33 Calculated Osmolality 297 mOsm/kg (285-295) H 10/28/22 04:33 Lactic Acid 1.5 mmol/L (0.5-2.2) 10/25/22 11:38 Calcium 10.0 mg/dL (8.5-10.5) 10/28/22 04:33 Total Bilirubin 0.3 mg/dL (0.15-1.2) 10/25/22 11:38 AST 15 U/L (0-32) 10/25/22 11:38 ALT 11 U/L (0-33) 10/25/22 11:38 Alkaline Phosphatase 65 U/L (35-105) 10/25/22 11:38 Troponin T Baseline 8 ng/L (0-10) 10/25/22 11:31 Troponin T 120 Minute 8.04 ng/L (0-10) 10/25/22 14:01 Delta Troponin T 0.04 ABS# (0-10) 10/25/22 14:01 Troponin T Hi Sens 6Hr 7.99 ng/L (0-10) 10/25/22 17:31 Troponin T Hi Sens 6Hr Delta -0.01 ng/L (0-12) L 10/25/22 17:31 NT-Pro-B Natriuret Pep 272 pg/mL (0-125) H 10/25/22 11:38 Total Protein 7.8 g/dL (6.6-8.7) 10/25/22 11:38 Albumin 4.6 g/dL (3.5-5.2) 10/25/22 11:38 Globulin 3.2 g/dL (1.3-4.6) 10/25/22 11:38 Procalcitonin 0.08 ng/mL (0-0.5) 10/25/22 11:38 Nasal Influ A H1 2009 PCR Detected (NOT DETECT) A 10/25/22 12:52 Adenovirus (PCR) Not detected (NOT DETECT) 10/25/22 12:52 C. pneumoniae DNA (PCR) Not detected (NOT DETECT) 10/25/22 12:52 Coronavirus 229E (PCR) Not detected (NOT DETECT) 10/25/22 12:52 Human Metapneumovir PCR Not detected (NOT DETECT) 10/25/22 12:52 Influenza A (H1) PCR Not detected (NOT DETECT) 10/25/22 12:52 Influenza A (H3) PCR Not detected (NOT DETECT) 10/25/22 12:52 Influenza Type A Ag negative (Negative) 10/25/22 12:58 Influenza Type A (PCR) Not detected (NOT DETECT) 10/25/22 12:52 Influenza Type B Ag negative (Negative) 10/25/22 12:58 Influenza Type B (PCR) Not detected (NOT DETECT) 10/25/22 12:52 M. pneumoniae (PCR) Not detected (NOT DETECT) 10/25/22 12:52 Parainfluenza 1 (PCR) Not detected (NOT DETECT) 10/25/22 12:52 Parainfluenza 2 (PCR) Not detected (NOT DETECT) 10/25/22 12:52 Parainfluenza 3 (PCR) Not detected (NOT DETECT) 10/25/22 12:52 Parainfluenza 4 (PCR) Not detected (NOT DETECT) 10/25/22 12:52 RSV Type A (PCR) Not detected (NOT DETECT) 10/25/22 12:52 RSV Type B (PCR) Not detected (NOT DETECT) 10/25/22 12:52 Entero/Rhino (PCR) Not detected (NOT DETECT) 10/25/22 12:52 SARS-CoV-2 (PCR) Not detected (NOT DETECT) 10/25/22 12:52 SARS-CoV-2 Ag (Rapid) Negative (Negative) 10/25/22 12:58 Vitals Last Vital Signs Temp 97.9 F 10/28/22 04:00 Pulse 89 10/28/22 08:00 Resp 22 H 10/28/22 08:00 BP 146/76 10/28/22 09:56 Pulse Ox 91 10/28/22 08:00 O2 Del Method 10/28/22 08:00 O2 Flow Rate 4 10/28/22 08:00 Discharge Plan Discharge Patient Disposition: Home Condition: Stable Prescriptions: New Pulmicort Flexhaler 180 mcg/actuation aerosol powdr breath activated 1 inh inhalation BID 30 Days Qty: 1 0RF oseltamivir 75 mg Capsule 75 mg PO BID 3 Days Qty: 6 0RF prednisone 20 mg tablet 40 mg PO DAILY 5 Days Qty: 5 0RF Continued aspirin [Adult Aspirin Regimen] 81 mg tablet,delayed release (DR/EC) 81 mg PO EVERY OTHER DAY albuterol sulfate 2.5 mg /3 mL (0.083 %) solution for nebulization 2.5 mg INHALATION Q4H PRN (Reason: shortness of breath or wheezing) Qty: 180 3RF acetaminophen [Arthritis Pain Relief (acetam)] 650 mg tablet extended release 650 mg PO Q12H calcium carbonate-vitamin D3 [Calcium 600 with Vitamin D3] 600 mg-12.5 mcg (500 unit) capsule 1 cap PO DAILY albuterol sulfate 90 mcg/actuation HFA aerosol inhaler See Rx Instructions .ROUTE .COMPLEX Qty: 54 0RF Dose Instruction: INHALE 2 PUFFS EVERY 4 HOURS NEEDED FOR SHORTNESS OF BREATH OR WHEEZING Rx Instructions: INHALE 2 PUFFS EVERY 4 HOURS NEEDED FOR SHORTNESS OF BREATH OR WHEEZING omeprazole 20 mg capsule,delayed release(DR/EC) 20 mg PO DAILY Qty: 90 3RF pravastatin 40 mg tablet 40 mg PO DAILY sertraline 100 mg tablet 100 mg PO BEDTIME amlodipine 10 mg tablet 10 mg PO DAILY olmesartan 5 mg tablet 5 mg PO DAILY Discharge Orders: Discharge Order (Routine); Ordered 10/28/22 Ordered By: Paul Ho Other Ambulatory Orders: DME: Oxygen (Order) Location: None Selected Ordered By: Paul Ho Referrals: Melanie Joyce NP [Primary Care Provider] - 11/04/22 9:00 am Patient Instructions: Budesonide (By breathing), Oseltamivir (By mouth), Prednisolone (By mouth), Influenza (DC), Opioid Safety Discharge Attestations Time Spent in Discharge Care*: less than 30 min Quality Metrics Clinical Quality Measures [ No reported AMI, CVA or VTE this stay] Coding Level of Care Code Acute Chg FW DC note Exam Expanded Problem Focused Diagnoses COPD (chronic obstructive pulmonary disease) J44.1 COPD type: COPD with acute exacerbation Hypertension I10 Hypertension type: primary hypertension Hyperlipidemia E78.2 Hyperlipidemia type: mixed hyperlipidemia GERD (gastroesophageal reflux disease) K21.9 Esophagitis presence: without esophagitis Osteoporosis M81.0 Osteoporosis type: age-related Presence of current pathological fracture: without current pathological fracture Depression F32.9
== END 2022-10-28 12:40 | disposition home or self-care (01) ==
LOC: ER 19:51 → MEDSURG 20:05
PROVIDERS: Admitting Provider Hospitalist; Emergency Provider Emergency Medicine; PCP Nurse Practitioner Family; Visit Provider Internal Medicine
DX: J44.1 Chronic obstructive pulmonary disease with (acute) exacerbation (principal); J10.1 Influenza due to other identified influenza virus with other respiratory manifestations; E78.2 Mixed hyperlipidemia; K21.9 Gastro-esophageal reflux disease without esophagitis; M81.0 Age-related osteoporosis without current pathological fracture; I10 Essential (primary) hypertension; F32.9 Major depressive disorder, single episode, unspecified
CPT/HCPCS: 36415; 36600; 71045; 71275; 80048; 80053; 82805; 83605; 83880; 84145; 84484; 85025; 85378; 87040; 87070; 87077; 87186; 87205; 87426; 87486; 87581; 87633; 87804; 90471; 90732; 93005; 94640; 94664; 94760; 96365; 96372; 96375; 96376; 99285; G0378; J1650; J2920; J2930; J3490; J7626; Q3014; Q9967

== ENCOUNTER 2022-10-31 15:33 | Inpatient (IN) | payer MEDICARE, SELFPAY ==
[2022-10-31] VITALS (33 sets, daily range): BP systolic 112–176; BP diastolic 62–108; PULSE 112–152; RESP 18–37; TEMP 37.6–38.3; O2SAT 75–97
--- NOTE | 2022-10-31 15:37 | XRR_ITS ---
PROCEDURE INFORMATION: Exam: XR Chest Exam date and time: 10/31/2022 3:55 PM Age: 72 years old Clinical indication: Cough and dyspnea; Additional info: Dyspnea/cough TECHNIQUE: Imaging protocol: Radiologic exam of the chest. Views: 1 view. COMPARISON: CR XR chest 1V portable [id number] 10/25/2022 12:27 PM FINDINGS: Lungs: Unremarkable. No consolidation. Pleural spaces: Unremarkable. No pleural effusion. No pneumothorax. Heart/Mediastinum: Unremarkable. No cardiomegaly. Bones/joints: Unremarkable. XR/XR chest 1V portable [id number] IMPRESSION: No acute findings.
--- NOTE | 2022-10-31 15:39 | ED_ITS ---
HPI - SOB/Dyspnea General: Chief Complaint: Shortness of Breath/Dyspnea Stated Complaint: RESP DISTRESS Time Seen by Provider: 10/31/22 15:37 Source: patient Mode of arrival: EMS History of Present Illness: HPI Narrative: 72-year-old female presents emergency room complaining of shortness of breath and cough. She seems to be somewhat confused as well. She keeps saying she needs to push the button in reference to it.on the tape on oximeter on her right index finger. When we asked her not to manipulate it so we will track better she states she needs to push the buttons difficult to get her to stop that. She is aware of where she is at she recalls being hospitalized recently according to discharge summary she was discharged home with 6 L by nasal cannula on arrival here she is on a mask 50 L/min we quickly titrated that down we actually had her off of it for a bit but then did require to come back on at 3 L/min. She denies any chest pain she was hospitalized recently with exacerbation COPD she is complaining of a moderate productive cough. MD elicited complaint: shortness of breath and cough Pertinent past history: COPD Onset (ago): hour(s) Context: recent illness Timing: constant Severity: moderate Exacerbating factors: exertion and coughing Relieving factors: oxygen, rest and bronchodilators Known history of: COPD Associated symptoms: Reports chest congestion and cough; Deny abdominal pain, chest pain, diaphoresis, dizziness, extremity pain, fever(s), hemoptysis, lightheadedness, myalgias, nausea, orthopnea, palpitations, paresthesias, polydipsia, polyuria, rash, sense of impending doom, syncope or vomiting Treatment prior to arrival: oxygen and bronchodilator Review of Systems Const: Denies: fever(s), chills, fatigue, malaise or diaphoresis ENMT: Denies: throat pain, ear or mastoid pain, nasal discharge or nasal congestion Card: Denies: chest pain, palpitations, lightheadedness, syncope or orthopnea Resp: Reports: dyspnea, non-productive cough, wheezing and chest congestion; Denies: productive cough or hemoptysis GI: Denies: abdominal pain, nausea or vomiting : Denies: flank pain, difficulty voiding, dysuria, urinary frequency or urinary urgency Musc: Reports: back pain (Chronic); Denies: extremity pain Skin/Breast: Denies: rash or pruritus Neuro: Denies: dizziness Endo: Denies: polyuria or polydipsia PFSH ED PFSH: Medical History COPD (chronic obstructive pulmonary disease) Depression GERD (gastroesophageal reflux disease) 1 para 1 Hyperlipidemia Hypertension Osteoporosis Post-traumatic arthritis of right ankle Stress incontinence in female Vitamin D deficiency Surgical History History of cataract surgery bialteral History of elbow surgery left, due to nerve entrapment History of tubal ligation Status post open reduction and internal fixation (ORIF) of fracture (12/2020) Dr. Lao; right pilon fracture, right fibular fracture Family History Father Cancer Type of cancer not known (unknown primary), but was in the lungs Mother , age 54 from respiratory disease, COPD, heavy smoker Lung disease Other Diabetes Social History Smoking and tobacco status: former smoker Alcohol intake: current Alcohol intake frequency: holidays/special occasions only Physical Exam Const: GENERAL APPEARANCE: cooperative and comfortable ORIENTATION/CONSCIOUSNESS: Yes awake HENMT: COMMON NORMALS: normocephalic, atraumatic and hearing grossly normal bilaterally HEAD & SCALP: normocephalic and atraumatic Resp: AUSCULTATION: rhonchi and wheezes Cardio: COMMON NORMALS: regular rate, regular rhythm and No murmurs present (Cardio) RATE: regular rate RHYTHM: regular rhythm GI: COMMON NORMALS: Soft to palpation and No hepatosplenomegaly present AUSCULTATION: Yes normoactive bowel sounds PALPATION: Yes Soft to palpation, No Tenderness to palpation present (GI), No Guarding due to palpation present (GI) and Yes No hepatosplenomegaly present Extremity: COMMON NORMALS: normal to inspection, capillary refill normal, no clubbing, cyanosis or edema, no calf tenderness and no pedal edema Skin: COMMON NORMALS: no rashes or lesions noted GENERAL SKIN EXAM: no rashes or lesions noted Course Vital Signs: Vital signs: Vital Signs Temperature 100.9 F H 10/31/22 16:56 Pulse Rate 120 H 10/31/22 17:10 Respiratory Rate 25 H 10/31/22 17:20 Blood Pressure 151/96 10/31/22 17:20 Pulse Oximetry 77 L 10/31/22 17:20 Oxygen Delivery Me thod 10/31/22 15:48 Oxygen Flow Rate 2 10/31/22 15:48 MDM - SOB/Dyspnea Medical Decision Making Patient has severe leukocytosis with large left shift. Recently tested positive for a troponin 1 suspicious for septicemia D-dimer is elevated as well. Discussed with hospitalist will admit we started her on prophylactic antibiotics including cefepime and vancomycin. I did not give her a sepsis bolus because her blood pressure is currently elevated and is not indicated. She is mildly hypokalemic. Her lactate was actually within the normal range. Medical Records I reviewed the patient's medical records. Lab Data I reviewed the patient's lab results. 10/31/22 16:32 10/31/22 16:32 Labs/Radiology: Radiology Impressions Chest X-Ray 10/31/22 15:37 IMPRESSION: No acute findings. Laboratory Results WBC 30.6 10^3/uL (4.0-10.0) H* 10/31/22 16:32 RBC 5.30 10^6/uL (4.1-5.3) 10/31/22 16:32 Hgb 12.4 g/dL (11.5-15.3) 10/31/22 16:32 Hct 39.8 % (37.0-47.0) 10/31/22 16:32 MCV 75.1 fl (81-99) L 10/31/22 16:32 MCH 23.4 pg (28.0-34.0) L 10/31/22 16:32 MCHC 31.2 g/dL (30.0-36.0) 10/31/22 16:32 RDW 15.8 % (12.1-15.1) H 10/31/22 16:32 Plt Count 361 10^3/cmm (130-400) 10/31/22 16:32 MPV 11.3 fL (7.4-10.4) H 10/31/22 16:32 Neut % (Auto) 94.6 % 10/31/22 16:32 Lymph % (Auto) 0.6 % 10/31/22 16:32 Merrick % (Auto) 3.7 % 10/31/22 16:32 Eos % (Auto) 0.0 % 10/31/22 16:32 Baso % (Auto) 0.2 % 10/31/22 16:32 Neut # (Auto) 28.93 10^3/uL (1.8-7.7) H 10/31/22 16:32 Lymph # (Auto) 0.2 10^3/uL (0.8-4.8) L 10/31/22 16:32 Merrick # (Auto) 1.1 10^3/uL (0.2-0.9) H 10/31/22 16:32 Eos # (Auto) 0.0 10^3/uL (0.0-0.8) 10/31/22 16:32 Baso # (Auto) 0.1 10^3/uL (0.0-0.1) 10/31/22 16:32 Nucleated RBC % (auto) 0 % 10/31/22 16:32 Nucleated RBCs # 0.0 /100WBC 10/31/22 16:32 D-Dimer 2.90 ug/mIFEU (0-0.59) H 10/31/22 16:32 Specimen Type Arterial 10/31/22 15:48 Sample Site Radial, right 10/31/22 15:48 ABG pH 7.45 (7.35-7.45) 10/31/22 15:48 ABG pCO2 34.2 mmHg (35-45) L 10/31/22 15:48 ABG pO2 59.3 mmHg (80.0-100.0) L 10/31/22 15:48 ABG HCO3 23.6 mmol/L (22-26) 10/31/22 15:48 ABG O2 Saturation 92.4 10/31/22 15:48 ABG Base Excess 0.1 mmol/L (-2.0-2.0) 10/31/22 15:48 George Test Pos 10/31/22 15:48 A-a O2 Gradient 20.3 mmHg (5-10) H 10/31/22 15:48 Hematocrit 38.8 % (37-47) 10/31/22 15:48 Hgb O2 Saturation 91.2 % (95-100) L 10/31/22 15:48 Carboxyhemoglobin 1.0 %THgb (0.4-20.1) 10/31/22 15:48 Methemoglobin 0.3 % (0.4-1.5) L 10/31/22 15:48 Total Hemoglobin 12.6 g/dL (12-16) 10/31/22 15:48 Sodium 141.0 mmol/L (131-143) 10/31/22 15:48 Potassium 3.1 mmol/L (3.5-5.0) L 10/31/22 15:48 Glucose 141.0 mg/dL (70-115) H 10/31/22 15:48 Ionized Calcium 1.3 mmol/L (1.1-1.4) 10/31/22 15:48 O2 Delivery Device Nc 10/31/22 15:48 O2 Liters/Min 4.0 % 10/31/22 15:48 FiO2 36.0 % 10/31/22 15:48 Acrylic Fabricator ID Cak 10/31/22 15:48 Sodium 131 mmol/L (136-145) L 10/31/22 16:32 Potassium 3.2 mmol/L (3.5-5.1) L 10/31/22 16:32 Chloride 92 mmol/L (98-107) L 10/31/22 16:32 Carbon Dioxide 23 mmol/L (22-29) 10/31/22 16:32 Anion Gap 19.2 (5-19) H 10/31/22 16:32 BUN 43 mg/dL (8-23) H 10/31/22 16:32 Creatinine 1.1 mg/dL (0.5-0.9) H 10/31/22 16:32 GFR Calculation Not Reportable 10/31/22 16:32 Glucose 145 mg/dL (65-115) H 10/31/22 16:32 Calculated Osmolality 285 mOsm/kg (285-295) 10/31/22 16:32 Lactic Acid 1.6 mmol/L (0.5-2.2) 10/31/22 16:32 Calcium 10.2 mg/dL (8.5-10.5) 10/31/22 16:32 Troponin T Baseline 25 ng/L (0-10) H 10/31/22 16:32 Discharge Plan Discharge Patient Disposition: Admitted As Inpatient Clinical Impression: Septicemia, Influenza A H1N1 infection, Hypoxia Condition: Stable Prescriptions: No Action aspirin [Adult Aspirin Regimen] 81 mg tablet,delayed release (DR/EC) 81 mg PO EVERY OTHER DAY albuterol sulfate 2.5 mg /3 mL (0.083 %) solution for nebulization 2.5 mg INHALATION Q4H PRN (Reason: shortness of breath or wheezing) Qty: 180 3RF acetaminophen [Arthritis Pain Relief (acetam)] 650 mg tablet extended release 650 mg PO Q12H calcium carbonate-vitamin D3 [Calcium 600 with Vitamin D3] 600 mg-12.5 mcg (500 unit) capsule 1 cap PO DAILY albuterol sulfate 90 mcg/actuation HFA aerosol inhaler See Rx Instructions .ROUTE .COMPLEX Qty: 54 0RF Dose Instruction: INHALE 2 PUFFS EVERY 4 HOURS NEEDED FOR SHORTNESS OF BREATH OR WHEEZING Rx Instructions: INHALE 2 PUFFS EVERY 4 HOURS NEEDED FOR SHORTNESS OF BREATH OR WHEEZING omeprazole 20 mg capsule,delayed release(DR/EC) 20 mg PO DAILY Qty: 90 3RF pravastatin 40 mg tablet 40 mg PO DAILY sertraline 100 mg tablet 100 mg PO BEDTIME amlodipine 10 mg tablet 10 mg PO DAILY olmesartan 5 mg tablet 5 mg PO DAILY Pulmicort Flexhaler 180 mcg/actuation aerosol powdr breath activated 1 inh inhalation BID 30 Days Qty: 1 0RF prednisone 20 mg tablet 40 mg PO DAILY 5 Days Qty: 5 0RF Referrals: Melanie Joyce NP [Primary Care Provider] - Coding Level of Care Code ED Demand Generator Manager for Chg Fwd Exam Detailed
--- NOTE | 2022-10-31 15:47 | PC.NURSE ---
pt came into ER via EMS. Pt alert and oriented to person. When asked for birthday, pt stated 1949, when asked what month, pt spelled M-A-Y. Pt oriented to know she is in the hospital but when asked what city she was in, pt began spelling something else. Pt not oriented to time. pt not answering questions appropriately and appears confused with surroundings. pt noted to be fidgiting with medical equipment. PERRL at 2mm bilat. lung sounds clear bilat. loose cough noted. pt's sister arrived to ER and stated this mentation is not normal for pt. States she spoke to pt on the phone yesterday before dark and pt was normal. states today she couldnt get ahold of the patient so a family member went to check on her and found her.
[2022-10-31 15:59] LABS: Blood Gas Allen Test Pos; Blood Gas Operator Identificat CAK; Blood Gas Sample Type Arterial; Ionized Calcium Level - ABG 1.3 mmol/L (1.1-1.4); Oxygen Device NC
--- NOTE | 2022-10-31 16:07 | ECG_ITS ---
[facility] Test Date: 2022-10-31 Pat Name: Mildred Graham Department: Room: Gender: Female Heel Emery Buffer: : 1950 Requested By: Jose Feliz Order Number: [id number] Norma MD: Sharad Almonte M.D. Measurements Intervals [place] Rate: 123 P: 55 TN: 152 QRS: 51 QRSD: 83 T: 52 QT: 320 QTc: 458 Interpretive Statements SINUS TACHYCARDIA MODERATE ST DEPRESSION [0.05+ mV ST DEPRESSION] Compared to ECG 10/25/2022 17:56:56 ST (T wave) deviation now present Sinus rhythm no longer present Electronically Signed On 10-31-2022 19:43:22 [employer] CENTER [employer] ARCHITECT by Sharad Almonte M.D. [id number]
[2022-10-31 16:38] LABS: ABG PCO2 34.2 mmHg (35-45); ABG PH Result 7.45 (7.35-7.45); Alveolar-Arterial Oxygen Gradi 20.3 mmHg (5-10); Arterial Blood Gas Hematocrit 38.8 % (37-47); Base Excess ABG 0.1 mmol/L (-2.0-2.0); Blood Gas Sample Site Radial, right; HCO3 ABG 23.6 mmol/L (22-26); HGB O2 Sat 91.2 % (95-100); Methemoglobin 0.3 % (0.4-1.5); Oxygen Saturation ABG 92.4; PO2 ABG 59.3 mmHg (80.0-100.0); Potassium Level - ABG 3.1 mmol/L (3.5-5.0); Total Hemoglobin 12.6 g/dL (12-16)
[2022-10-31 16:49] LABS: Basophils # 0.1 10^3/uL (0.0-0.1); Basophils % 0.2 %; Hematocrit 39.8 % (37.0-47.0); Hemoglobin 12.4 g/dL (11.5-15.3); Lymphocytes # 0.2 10^3/uL (0.8-4.8); Lymphocytes % 0.6 %; Mean Corpuscular HGB Conc 31.2 g/dL (30.0-36.0); Mean Corpuscular Hemoglobin 23.4 pg (28.0-34.0); Mean Corpuscular Volume 75.1 fl (81-99); Mean Platelet Volume 11.3 fL (7.4-10.4); Monocytes # 1.1 10^3/uL (0.2-0.9); Monocytes % 3.7 %; Neutrophils # 28.93 10^3/uL (1.8-7.7); Neutrophils % 94.6 %; Nucleated Red Blood Cells % 0 %; Platelet Count 361 10^3/cmm (130-400); Red Cell Distribution Width 15.8 % (12.1-15.1)
[2022-10-31 17:00] LABS: White Blood Count 30.6 10^3/uL (4.0-10.0)
[2022-10-31 17:09] LABS: Troponin(5th) Baseline 25 ng/L (0-10)
[2022-10-31 17:11] LABS: Anion Gap 19.2 (5-19); Blood Urea Nitrogen 43 mg/dL (8-23); Calcium 10.2 mg/dL (8.5-10.5); Carbon Dioxide 23 mmol/L (22-29); Chloride 92 mmol/L (98-107); Glucose 145 mg/dL (65-115); Osmolality Calculated 285 mOsm/kg (285-295); Potassium 3.2 mmol/L (3.5-5.1); Sodium 131 mmol/L (136-145)
[2022-10-31 17:16] LABS: Lactic Sepsis W/Reflex 1.6 mmol/L (0.5-2.2)
--- NOTE | 2022-10-31 17:25 | CTR_ITS ---
PROCEDURE INFORMATION: Exam: CTA Chest With Contrast Exam date and time: 10/31/2022 6:28 PM Age: 72 years old Clinical indication: Abnormal findings; Abnormal diagnostic tests; Elevated d-dimer; Additional info: Elevated d dimer TECHNIQUE: Imaging protocol: Computed tomographic angiography of the chest with contrast. 3D rendering (Not supervised by radiologist): MIP and/or 3D reconstructed images were created by the technologist. Radiation optimization: All CT scans at this facility use at least one of these dose optimization techniques: automated exposure control; mA and/or kV adjustment per patient size (includes targeted exams where dose is matched to clinical indication); or iterative reconstruction. Contrast material: OMNIPAQUE 350; Contrast volume: 167 ml; Contrast route: INTRAVENOUS (IV); COMPARISON: CT angio chest PE protcl [id number] 10/25/2022 12:29 PM RADIATION DOSE METRICS: Total DLP (mGy-cm): 397.41 FINDINGS: Pulmonary arteries: Small filling defects in pulmonary artery branches of the left upper lobe, series 7 images 159-167, and images 258-272. Aorta: Unremarkable. No aortic aneurysm. No aortic dissection. Lungs: Emphysema. Mild atelectasis in the lung bases. The lungs are otherwise clear. Pleural spaces: Unremarkable. No pneumothorax. No pleural effusion. Heart: Coronary artery calcifications. The heart size is normal. Heart RV/LV ratio: The RV/LV ratio is 1.0. Lymph nodes: Unremarkable. No enlarged lymph nodes. Bones/joints: Degenerative changes of the spine. No acute fracture identified. Old right rib fracture. Soft tissues: Unremarkable. CT/CT angio chest PE protcl [id number] IMPRESSION: 1. Small pulmonary emboli in the left upper lobe. No evidence for elevated right heart pressure. 2. No acute pulmonary finding.
[2022-10-31 17:40] LABS: Add Urine Microscopic? NO; Charge for UA Resulting for Rev
[2022-10-31 17:46] LABS: Bilirubin Urine Neg (Negative); Blood Urine Neg (Negative); Glucose Urine UA Norm (Normal); Ketones Urine 1+ (Negative); Leukocyte Esterase Urine Negative (Negative); Nitrate Urine Negative (Negative); Protein Urine 1+ (Negative); Specific Gravity, Urine 1.025 (1.005-1.030); Urine Appearance Clear (CLEAR); Urine Color Yellow (Yellow); Urobilinogen Urine Neg (Negative); pH Urine 5 (5-7)
[2022-10-31] MEDS: acetaminophen 1,000 MG/100 ML PIGGYBACK 400 MG IV (17:56)
--- NOTE | 2022-10-31 18:04 | ECG_ITS ---
[facility] Test Date: 2022-10-31 Pat Name: Mildred Graham Department: Room: Gender: Female Orthopedic Coder: : 1950 Requested By: Jose Feliz Order Number: [id number] Norma MD: Sharad Almonte M.D. Measurements Intervals [place] Rate: 114 P: 70 MO: 137 QRS: 38 QRSD: 81 T: 46 QT: 309 QTc: 426 Interpretive Statements SINUS TACHYCARDIA POSSIBLE LEFT ATRIAL ENLARGEMENT [-0.1mV P-WAVE IN V1/V2] MINIMAL ST DEPRESSION [0.025+ mV ST DEPRESSION] Compared to ECG 10/31/2022 16:07:09 No significant changes Electronically Signed On 10-31-2022 19:48:55 SYRUP FILTERER by Sharad Almonte M.D. [id number]
[2022-10-31] MEDS: cefepime 2,000 MG in sodium chloride 0.9% (plus) 50 ML 100 MG IV (18:14)
--- NOTE | 2022-10-31 18:16 | CTR_ITS ---
PROCEDURE INFORMATION: Exam: CT Lumbar Spine With Contrast Exam date and time: 10/31/2022 6:32 PM Age: 72 years old Clinical indication: Low back pain; Additional info: Sepsis, back pain TECHNIQUE: Imaging protocol: Computed tomography of the lumbar spine with contrast. Radiation optimization: All CT scans at this facility use at least one of these dose optimization techniques: automated exposure control; mA and/or kV adjustment per patient size (includes targeted exams where dose is matched to clinical indication); or iterative reconstruction. Contrast material: OMNIPAQUE 350; Contrast volume: 100 ml; Contrast route: INTRAVENOUS (IV); COMPARISON: [place] [id number] 10/14/2016 1:40 PM RADIATION DOSE METRICS: Total DLP (mGy-cm): 1252.53 FINDINGS: Bones/joints: Acute appearing compression fracture of superior L4 with 35% loss of vertical height and 5 mm retropulsion. This contributes to severe central canal stenosis. The other vertebral bodies are of normal alignment and stature with mild degenerative endplate changes. The facets are intact with mild degenerative changes. 0.9 x 1.3 x 1.5 cm partial filling defect in the posterior distal inferior vena cava, at the L4 level. The other visualized large deep veins appear patent. L1-L2: No significant disc protrusion. No severe spinal canal stenosis. No significant neural foraminal narrowing. L2-L3: Circumferential disc bulge. Mild bilateral foraminal stenosis. Mild central canal stenosis. L3-L4: Circumferential disc bulge. Mild bilateral foraminal stenosis. Severe central canal stenosis, due to the retropulsed superior L4 fracture. L4-L5: Circumferential disc bulge. Moderate bilateral foraminal stenosis. Severe central canal stenosis. L5-S1: Circumferential disc bulge. Mild bilateral foraminal stenosis. Mild central canal stenosis. Vasculature: Diffuse arterial calcifications. No aneurysm. Soft tissues: Mild perivertebral edema or hemorrhage at L4. CT/CT lumbar spine w con [id number] IMPRESSION: 1. Partial deep vein thrombosis in the distal inferior vena cava, at the L4 level. 2. Acute moderate compression fracture of superior L4 with 5 mm retropulsion causing severe central canal stenosis. 3. Degenerative changes with severe central canal stenosis at L4-L5.
--- NOTE | 2022-10-31 18:18 | PM.HP ---
Providers/Chief Complaint Primary Care Provider: Melanie Joyce NP Chief Complaint: RESP DISTRESS History of Present Illness 72-year-old lady with with history of COPD, depression, GERD, HTN, HLD, osteoporosis, recently hospitalized due to shortness of breath, with reported influenza A positive treated with Tamiflu, steroids, doxycycline, at discharge on 6 L nasal cannula oxygen on ambulation, return home with remainder of oseltamavir, Pulmicort and 5-day course of prednisone. She was brought in for evaluation today due to being found confused at home. Her [id number]-[id number] found her not making sense, not wearing her oxygen and breathing through her mouth. On presentation in ER she is confused, tachycardic, heart rates in 120s, febrile with temperature 100.9 ?F. With leukocytosis of 30.6. Unable to provide history. Fidgeting with monitoring equipment. Her sister and [id number]-gn-[id number] are at bedside. Bwkjssj-gm-icg states that she was seemingly doing well up until yesterday. Then today was suddenly found confused. She had been having some back pain, otherwise did not seem to have any specific complaints. No other recent medication changes. In ER noted hypoxic requiring 2 L nasal cannula oxygen. D-dimer abnormal, pending CT angiogram chest. ABG 7.45/34.2/39.3. Anion gap 19.2. Bicarb 23. Lactic acid 1.6. BUN 43, creatinine 1.1. Urine ketones positive. Sodium 131, potassium 3.2, chloride 92. Glucose 145. Baseline troponin 25. EKG with some wandering baseline, but possibly some T wave depression inferolaterally but without TWI. Chest x-ray without acute findings. Her sister notes that back pain may have been worse than usual. They are not aware of her falling down. They are not aware of her having history of diabetes. Diabetes does run in the family. Review of Systems General: Reports: Other (Limited due to mental status.) Const: Reports: malaise ENMT: Reports: other (Dry MM) Card: Denies: chest pain Resp: Reports: dyspnea GI: Denies: abdominal pain Musc: Reports: back pain (Per sister) Neuro: Reports: confusion; Denies: headache(s) Medications/Allergies Home Medications Medication Instructions Recorded Confirmed Last Taken Type albuterol sulfate 2.5 mg/3 mL 2.5 mg (3 mL) inhalation Q4H PRN 03/13/20 10/25/22 10/24/22 Rx (0.083 %) solution for nebulization shortness of breath or wheezing #180 mL aspirin 81 mg tablet,delayed 81 mg PO EVERY OTHER DAY 03/13/20 10/25/22 10/24/22 History release (Adult Aspirin Regimen) acetaminophen 650 mg 650 mg PO Q12H 05/26/20 10/25/22 10/24/22 History tablet,extended release (Arthritis Pain Relief (acetaminophen) ER) omeprazole 20 mg capsule,delayed 20 mg PO DAILY #90 caps 01/13/22 10/25/22 10/24/22 Rx release albuterol sulfate 90 mcg/actuation See Rx Instructions .Route 04/02/22 10/25/22 10/25/22 Rx aerosol inhaler .COMPLEX #54 grams calcium carbonate 600 mg-vitamin 1 cap PO DAILY 04/02/22 10/25/22 10/24/22 History D3 12.5 mcg (500 unit) capsule (Calcium 600 with Vitamin D3) amlodipine 10 mg tablet 10 mg PO DAILY 10/25/22 10/25/22 10/24/22 History olmesartan 5 mg tablet 5 mg PO DAILY 10/25/22 10/25/22 10/24/22 History pravastatin 40 mg tablet 40 mg PO DAILY 10/25/22 10/25/22 10/24/22 History sertraline 100 mg tablet 100 mg PO BEDTIME 10/25/22 10/25/22 10/24/22 History budesonide 180 mcg/actuation 1 inh inhalation BID 30 days #1 ea 10/28/22 Unknown Rx breath activated powder inhaler (Pulmicort Flexhaler) prednisone 20 mg tablet 40 mg PO DAILY 5 days #5 tabs 10/28/22 Unknown Rx Allergies Allergy/AdvReac Type Severity Reaction Status Date / Time Sulfa (Sulfonamide Allergy ALGY-Rash Verified 10/25/22 11:32 Antibiotics) PFSH Acute PFSH: Medical History COPD (chronic obstructive pulmonary disease) Depression GERD (gastroesophageal reflux disease) 1 para 1 Hyperlipidemia Hypertension Osteoporosis Post-traumatic arthritis of right ankle Stress incontinence in female Vitamin D deficiency Surgical History History of cataract surgery bialteral History of elbow surgery left, due to nerve entrapment History of tubal ligation Status post open reduction and internal fixation (ORIF) of fracture (12/2020) Dr. Lao; right pilon fracture, right fibular fracture Family History Father Cancer Type of cancer not known (unknown primary), but was in the lungs Mother , age 54 from respiratory disease, COPD, heavy smoker Lung disease Other Diabetes Social History Smoking and tobacco status: former smoker Alcohol intake: current Alcohol intake frequency: holidays/special occasions only Lives independently: Yes Household members: none Vitals/I&O/Wt Last Vital Signs Temp 100.9 F H 10/31/22 16:56 Pulse 120 H 10/31/22 17:10 Resp 25 H 10/31/22 17:20 BP 151/96 10/31/22 17:20 Pulse Ox 77 L 10/31/22 17:20 O2 Del Method 10/31/22 15:48 O2 Flow Rate 2 10/31/22 15:48 10/31/22 10/31/22 10/31/22 06:59 14:59 22:59 Intake Total 100 / 100 Balance 100 / 100 Physical Exam Narrative: Sister and [id number]-lc-knm at bedside. Breath has odor of ketones. Const: COMMON NORMALS: alert; negative for patient oriented x3 GENERAL APPEARANCE: cooperative ORIENTATION/CONSCIOUSNESS: Yes awake and Yes confused HENMT: OTHER: Dry MM Neck/C-Spine: COMMON NORMALS: no JVD Resp: COMMON NORMALS: normal respiratory effort and clear to auscultation bilaterally AUSCULTATION: clear to auscultation bilaterally Cardio: COMMON NORMALS: no JVD, regular rhythm, S1 normal heart sound present, S2 normal heart sound present and No murmurs present (Cardio) RHYTHM: regular rhythm HEART SOUNDS: S1 normal heart sound present and S2 normal heart sound present GI: COMMON NORMALS: Normal to inspection, nondistended, normoactive bowel sounds present, Soft to palpation and non-tender PALPATION: Yes Soft to palpation Extremity: COMMON NORMALS: no joint enlargement and no pedal edema Neuro: COMMON NORMALS: moves all extremities; negative for patient oriented x3 SENSORIUM/ORIENTATION: Yes alert OTHER: Confused, fidgeting with things on her bed. Skin: COMMON NORMALS: no rashes or lesions noted GENERAL SKIN EXAM: no rashes or lesions noted Data 10/31/22 16:32 10/31/22 16:32 Micro: Microbiology 10/31/22 17:32 Blood Culture - Preliminary Blood SPECIMEN COLLECTED 10/31/22 17:26 Blood Culture - Preliminary Blood SPECIMEN COLLECTED A&P Assessment and plan (1) Acute encephalopathy: Acute encephalopathy with delirium. She is confused, unable to provide history, fidgeting with equipment around her. No headache, no photophobia. Unclear cause of acute encephalopathy, suspect may be metabolic encephalopathy with anion gap acidosis, positive urine ketones, order of ketones, hyperglycemia, may have undiagnosed diabetes or advanced diabetes with steroids. She is very dehydrated. Otherwise may be occult infection somewhere which has not yet been found. Chest x-ray not suggestive of infection. UA otherwise unremarkable no report of GI symptoms. Asked about diarrhea, but does not appear to been having diarrhea which otherwise could be suspicious for C. difficile if she did given the high degree of leukocytosis. Watch out for diarrhea in case develops sensitive. Has been complaining of back pain recently, we will additionally obtain CT thoracic and lumbar spine with contrast to follow-up on her symptoms given not clearly identified source of possible sepsis. Discussed risk of adverse effects including contrast nephropathy with her family. Possible Tamiflu induced encephalopathy and delirium. She is done with Tamiflu. Encephalopathy secondary to steroid, possible, she will be done with prednisone now. Hold sertraline. For now clear liquid diet, aspiration precautions. (2) Sepsis: Possible sepsis source unclear. Recently had influenza A reported positive for which was hospitalized and received treatment with Tamiflu (3) High anion gap metabolic acidosis: Concern for DKA with high anion gap metabolic acidosis, dehydration, hyperglycemia, although not known diabetes. Serum ketones requested and are coming back positive. Replace potassium. Requested insulin Lantus, IV hydration, will give sliding scale insulin as well. Check magnesium. Follow-up chemistry. Check A1c Initial admission to ICU given overall condition with sepsis, DKA, acute encephalopathy and her age. At high risk of deterioration, additional complications and mortality. PPI prophylaxis. Lovenox DVT prophylaxis. (4) Elevated d-dimer: CTA chest (5) Hypokalemia: Replace. Check mg. (6) SRINATH (acute kidney injury): Creatinine 1.1. Suspect prerenal, she appears very dehydrated. Will give fluid challenge, NS 100 mL/h. Reassess renal function. Hold ARB. (7) Sinus tachycardia: Suspect secondary to dehydration, DKA, possibly sepsis. D-dimer abnormal, assess for PE. (8) Troponin level elevated: Complete troponin EKG series. Reviewed possibly with some T wave depression inferolaterally. Obtain TTE once heart rate improved somewhat. (9) Hyperglycemia: Glucose 145. No known history of diabetes. Check A1c. Lantus. Sliding scale insulin. Consistent carbohydrate for now clear liquid diet. Plan HTN: Will likely benefit from optimization, although currently acutely ill, uncomfortable. Suspect should improve at least somewhat with management of acute condition. Olmesartan on hold for now due to SRINATH. Patient reported influenza A positive, has been more than 7 days out. He is currently febrile, but doubt this is continuation of influenza given she had improved. Oxygenation overall appears to have been showing improvement, although still requiring 2 L nasal cannula oxygen currently. D-dimer is elevated, additional evaluation for possibility of PE as above. Attestations Medical Necessity Statement*: Admission of over 2 midnights anticipated for assessment management of acute encephalopathy, delirium, anion gap metabolic acidosis, DKA, possible sepsis, and a lady with recent influenza infection. Critical Care Time: The high probability of a clinically significant, sudden or life threatening deterioration of the patient's acid-base/endocrine, metabolic/neurologic, system(s) required my full and direct attention, intervention and personal management. The critical care time is as shown. 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
[2022-10-31 18:26] LABS: Ketone (Acetest) Serum Positive (Negative)
--- NOTE | 2022-10-31 18:29 | CTR_ITS ---
PROCEDURE INFORMATION: Exam: CT Thoracic Spine With Contrast Exam date and time: 10/31/2022 6:32 PM Age: 72 years old Clinical indication: Pain in thoracic spine; Additional info: Back pain, sepsis TECHNIQUE: Imaging protocol: Computed tomography of the thoracic spine with contrast. Radiation optimization: All CT scans at this facility use at least one of these dose optimization techniques: automated exposure control; mA and/or kV adjustment per patient size (includes targeted exams where dose is matched to clinical indication); or iterative reconstruction. Contrast material: OMNIPAQUE 350; Contrast volume: 100 ml; Contrast route: INTRAVENOUS (IV); COMPARISON: [place] [id number] 10/14/2016 1:40 PM RADIATION DOSE METRICS: Total DLP (mGy-cm): 1252.53 FINDINGS: Bones/joints: Mild kyphosis. Degenerative endplate changes in the mid and lower thoracic levels. The facets are intact with mild degenerative changes. Rightward curvature of the upper thoracic spine. T1-T2: No significant disc protrusion. No severe spinal canal stenosis. No significant neural foraminal narrowing. T2-T3: No significant disc protrusion. No severe spinal canal stenosis. No significant neural foraminal narrowing. T3-T4: No significant disc protrusion. No severe spinal canal stenosis. No significant neural foraminal narrowing. T4-T5: No significant disc protrusion. No severe spinal canal stenosis. No significant neural foraminal narrowing. T5-T6: No significant disc protrusion. No severe spinal canal stenosis. No significant neural foraminal narrowing. T6-T7: No significant disc protrusion. No severe spinal canal stenosis. No significant neural foraminal narrowing. T7-T8: No significant disc protrusion. No severe spinal canal stenosis. No significant neural foraminal narrowing. T8-T9: No significant disc protrusion. No severe spinal canal stenosis. No significant neural foraminal narrowing. T9-T10: No significant disc protrusion. No severe spinal canal stenosis. No significant neural foraminal narrowing. T10-T11: No significant disc protrusion. No severe spinal canal stenosis. No significant neural foraminal narrowing. T11-T12: No significant disc protrusion. No severe spinal canal stenosis. No significant neural foraminal narrowing. T12-L1: No significant disc protrusion. No severe spinal canal stenosis. No significant neural foraminal narrowing. CT/CT thoracic spine w con [id number] IMPRESSION: No acute findings.
[2022-10-31] MEDS: iohexol 350 mg/mL 500 mL Btl (per mL) IV (18:36)
--- NOTE | 2022-10-31 19:16 | PC.NURSE ---
report given to CLIFTON Best to assume care
[2022-10-31 19:34] LABS: Troponin 5 2HR 36.05 ng/L (0-10)
[2022-10-31 19:37] LABS: Troponin 5 2HR Delta 11.05 ABS# (0-10)
[2022-10-31] MEDS: enoxaparin 80 mg/0.8 mL Syringe 70 MG SUBCUT (20:02)
[2022-10-31] MEDS: sodium chloride 0.9% 1,000 ML 100 ML IV (20:02)
[2022-10-31 20:10] LABS: Estmated Average Glucose 128; Hemoglobin A1C 6.1 % (4.0-6.0)
[2022-10-31] MEDS: lidocaine 1% 5 ML in potassium chloride premix 100 ML 25 ML IV (20:45)
[2022-10-31] MEDS: vancomycin 1,000 MG in sodium chloride 0.9% 250 ML 250 MG IV (20:45)
--- NOTE | 2022-10-31 21:14 | PC.NURSE ---
pt arrived to ICU via stretcher on continuos monitoring w/ RN @bedside @2053. Pt was placed on continuos cardiac, SpO2, and BP monitoring. Pt on NC 4L. Pt is unable to answer any orientation questions but follows rn throughout the room w/ eyes. R. AC noted to have a wound that appears to be phlebitis, wound is open w/ purulent drainage, this RN cleaned site w/ warm soapy water and applied a dressing.
--- NOTE | 2022-10-31 21:38 | ECG_ITS ---
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 Measurements Intervals [place] Rate: 123 P: 62 UT: 160 QRS: 25 QRSD: 78 T: 59 QT: 337 QTc: 482 Interpretive Statements SINUS TACHYCARDIA MODERATE ST DEPRESSION [0.05+ mV ST DEPRESSION] Compared to ECG 10/25/2022 17:56:56 ST (T wave) deviation now present Sinus rhythm no longer present Electronically Signed On 11-01-2022 19:07:42 MARKETER by Sharad Almonte M.D. [id number]
[2022-10-31] MEDS: pantoprazole 40 mg SDV IVP (21:49)
[2022-10-31] MEDS: insulin glargine 100 units/1 mL 10 UNIT SUBCUT (21:56)
[2022-10-31 22:14] LABS: Glucose Point of Care 158 mg/dL (70-110)
[2022-10-31 23:14] LABS: Anion Gap 21.1 (5-19); Blood Urea Nitrogen 31 mg/dL (8-23); Calcium 9.2 mg/dL (8.5-10.5); Carbon Dioxide 20 mmol/L (22-29); Chloride 104 mmol/L (98-107); Glucose 150 mg/dL (65-115); Osmolality Calculated 301 mOsm/kg (285-295); Potassium 4.1 mmol/L (3.5-5.1); Sodium 141 mmol/L (136-145)
--- NOTE | 2022-10-31 23:55 | PC.NURSE ---
Dr. Berrios notified of inability to get accurate intake and output measurements.
[2022-11-01] VITALS (55 sets, daily range): BP systolic 97–189; BP diastolic 47–136; PULSE 82–127; RESP 17–43; TEMP 36.8–37.8; O2SAT 90–100
[2022-11-01 00:10] LABS: Troponin 5 6HR 41.92 ng/L (0-10)
[2022-11-01 00:12] LABS: Troponin 5 6HR Delta 16.92 ng/L (0-12)
[2022-11-01] MEDS: cefepime 1,000 MG in sodium chloride 0.9% (plus) 50 ML 100 MG IV ×2 (00:38→08:40)
[2022-11-01 03:03] LABS: Basophils # 0.1 10^3/uL (0.0-0.1); Basophils % 0.2 %; Hematocrit 35.6 % (37.0-47.0); Hemoglobin 10.8 g/dL (11.5-15.3); Lymphocytes # 0.4 10^3/uL (0.8-4.8); Lymphocytes % 1.4 %; Mean Corpuscular HGB Conc 30.3 g/dL (30.0-36.0); Mean Corpuscular Hemoglobin 22.9 pg (28.0-34.0); Mean Corpuscular Volume 75.4 fl (81-99); Mean Platelet Volume 11.9 fL (7.4-10.4); Monocytes # 0.9 10^3/uL (0.2-0.9); Monocytes % 2.9 %; Neutrophils # 28.25 10^3/uL (1.8-7.7); Neutrophils % 94.1 %; Nucleated Red Blood Cells % 0 %; Platelet Count 348 10^3/cmm (130-400); Red Blood Count 4.72 10^6/uL (4.1-5.3); Red Cell Distribution Width 15.8 % (12.1-15.1)
[2022-11-01 03:24] LABS: Alanine Aminotransferase 12 U/L (0-33); Albumin Level 3.2 g/dL (3.5-5.2); Alkaline Phosphatase 58 U/L (35-105); Aspartate Amino Transferase 11 U/L (0-32); Blood Urea Nitrogen 28 mg/dL (8-23); Calcium 9.3 mg/dL (8.5-10.5); Carbon Dioxide 21 mmol/L (22-29); Chloride 106 mmol/L (98-107); Glucose 130 mg/dL (65-115); Osmolality Calculated 299 mOsm/kg (285-295); Sodium 141 mmol/L (136-145); Total Bilirubin 0.3 mg/dL (0.15-1.2); Total Protein 6.2 g/dL (6.6-8.7)
[2022-11-01] MEDS: sodium chloride 0.9% 1,000 ML 100 ML IV ×2 (04:48→16:28)
--- NOTE | 2022-11-01 04:58 | PC.NURSE ---
Pt has increased work of breathing, increased respiratory rate, w/ a moist productive cough and worsening of the crackles in the lungs. Pt on 5L NC, SpO2 90%. RT made aware, pt switched to oxy mask. HR 120. Dr. Berrios made aware.
[2022-11-01] MEDS: FUROsemide 10 mg/mL SDV 2mL 20 MG IVP (05:09)
[2022-11-01] MEDS: morphine 4 mg/mL SDV 1 mL 2 MG IVP (05:24)
[2022-11-01] MEDS: enoxaparin 80 mg/0.8 mL Syringe 70 MG SUBCUT (08:39)
--- NOTE | 2022-11-01 11:08 | CT_ITS ---
WS: [id number] CT HEAD NONCONTRAST HISTORY: AMS TECHNIQUE: Contiguous axial imaging performed through the brain in 2.5 mm imaging. Bone and soft tiss ue windows. Sagittal and coronal reformats reviewed. All CT scans at [facility] use at least one of these dose optimization techniques: automated exposure control; mA and/or kV adjustment per pa tient size (includes targeted exams where dose is matched to clinical indication); or iterative recon struction. DLP: 1101.11 mGy.cm COMPARISON: None available. Large amount of artifact through the brain from external devices. No acute intracranial hemorrhage, midline shift or mass effect. Mild atrophy and small vessel ischemic disease. Ventricles: Normal size with no hydrocephalus. Paranasal sinuses: As visualized are clear. Mastoid air cells: Well pneumatized. Calvarium and scalp: Skull is intact with no soft tissue edema or swelling. CT/CT head wo con* [id number] IMPRESSION: 1. No acute intracranial hemorrhage or edema. 2. Mild atrophy and mild small vessel ischemic disease. 3. External artifact throughout the brain limiting for subtle pathology.
--- NOTE | 2022-11-01 11:21 | CT_ITS ---
WS: [id number] CT RIGHT ANKLE WITH CONTRAST HISTORY: bacteremia, sepsis, unclear source, assess hardware Technique: All CT scans at [facility] use at least one of these dose optimization techniques: automated exposure control; mA and/or kV adjustment per patient size (includes targeted exams where dose is matched to clinical indication); or iterative reconstruction. DLP: 186.57 mGy-cm. COMPARISON: 12/24/2020 Status post plate and screw fixation distal tibia and fibula. Significant artifact through the lower extremity secondary to the hardware. Healing of the previously described fracture. No bone destructio n is evident. Taking into consideration the artifact from the hardware there is no fluid collection o r abscess identified. Bones are osteopenic. CT/CT ankle RT w con [id number] IMPRESSION: 1. Plate and screw fixation distal tibia and fibula. Intact by CT. No obvious fracture or loosening of the screws. 2. No focal abscess. 3. Diffuse osteopenia.
[2022-11-01 12:53] LABS: Bacillus cereus group Not Detected (NOT DETECT); Bacillus subtillis group Not Detected (NOT DETECT); Corynebacterium Not Detected (NOT DETECT); Cutibacterium acnes (P.acnes) Not Detected (NOT DETECT); Enterococcus Not Detected (NOT DETECT); Enterococcus faecalis Not Detected (NOT DETECT); Enterococcus faecium Not Detected (NOT DETECT); Lactobacillus species Not Detected (NOT DETECT); Listeria Not Detected (NOT DETECT); Listeria monocytogenes Not Detected (NOT DETECT); Micrococcus Not Detected (NOT DETECT); Pan Candida Not Detected (NOT DETECT); Pan Gram-Negative Not Detected (NOT DETECT); Staphylococcus epidermidis Not Detected (NOT DETECT); Staphylococcus lugdunensis Not Detected (NOT DETECT); Staphylococcus species Not Detected (NOT DETECT); Streptococcus agalactiae Not Detected (NOT DETECT); Streptococcus anginosus group Not Detected (NOT DETECT); Streptococcus pneumoniae Not Detected (NOT DETECT); Streptococcus pyogenes Not Detected (NOT DETECT); Streptococcus species Detected (NOT DETECT)
[2022-11-01] MEDS: cefTRIAXone 2,000 MG in sodium chloride 0.9% (plus) 50 ML 100 MG IV (13:14)
[2022-11-01] MEDS: lidocaine 5% Patch 1 PATCH TOPICAL (13:15)
--- NOTE | 2022-11-01 14:39 | P.PN_ITS ---
Subjective Subjective: Remains confused. Awake, unable to provide history. Clutching onto bed rail and her gown. Vitals/I&O/Wt Last Vital Signs Temp 100.1 F H 11/01/22 06:08 Pulse 121 H 11/01/22 13:00 Resp 42 H 11/01/22 13:00 BP 174/79 11/01/22 13:00 Pulse Ox 95 11/01/22 13:00 O2 Del Method 11/01/22 09:39 O2 Flow Rate 5 11/01/22 09:39 10/31/22 11/01/22 11/01/22 22:59 06:59 14:59 Intake Total 400 / 400 1031.667 / 1431.667 Output Total 300 / 300 1000 / 1300 Balance 100 / 100 31.667 / 131.667 Weight last 48 hrs Weight 71.804 kg Weight 71.804 kg Weight 73.936 kg Physical Exam Const: COMMON NORMALS: negative for patient oriented x3 GENERAL APPEARANCE: not cooperative ORIENTATION/CONSCIOUSNESS: Yes awake and Yes confused Neck/C-Spine: COMMON NORMALS: no JVD Resp: COMMON NORMALS: normal respiratory effort and clear to auscultation bilaterally AUSCULTATION: clear to auscultation bilaterally Cardio: COMMON NORMALS: no JVD, regular rhythm, S1 normal heart sound present, S2 normal heart sound present and No murmurs present (Cardio) RHYTHM: regular rhythm HEART SOUNDS: S1 normal heart sound present and S2 normal heart sound present GI: COMMON NORMALS: Normal to inspection, nondistended, normoactive bowel sounds present, Soft to palpation and non-tender PALPATION: Yes Soft to palpation Extremity: COMMON NORMALS: no joint enlargement and no pedal edema Neuro: COMMON NORMALS: moves all extremities; negative for patient oriented x3 OTHER: Clutching onto bedrail and her gown. Skin: COMMON NORMALS: no rashes or lesions noted GENERAL SKIN EXAM: no rashes or lesions noted Urinary Catheter Management: Sanders: Cath Placed During This Visit: yes Reason for Continuing Indwelling Catheter: Accurate Measurement of Urinary Output in Critically Ill Patients Urinary Catheter Date of Insertion: 11/01/22 Urinary Catheter Time of Insertion: 00:33 Data 11/01/22 02:11 11/01/22 02:11 Micro: Microbiology 11/01/22 12:07 Blood Culture - Preliminary Blood SPECIMEN COLLECTED 11/01/22 12:05 Blood Culture - Preliminary Blood SPECIMEN COLLECTED 10/31/22 17:32 Blood Culture - Preliminary Blood 10/31/22 17:26 Blood Culture - Preliminary Blood A&P Assessment and plan (1) Acute encephalopathy: Persistent confusion, recurrent low-grade fever. Persistent leukocytosis 30,000. Noted possible bacteremia with 2/4 bottles gram-positive cocci reported on blood culture. Unclear if this may be contaminant, culture repeated. In ca se of your bacteremia source unclear. Did have hospitalization recently. No port or PICC line. In terms of foreign bodies had right ankle fracture in the past and has some hardware there. Imaged with CT, no appearance of infection around the hardware or loose hardware. Does appear to have swelling and bruising of the right antecubital fossa. On discussion with nursing staff also draining some serous drainage from there. Will assess soft tissue ultrasound for any abscess or collection. Will assess duplex ultrasound for any DVT in the right arm. CT head largely unremarkable. With consideration of possible [employer] infection appreciate also neurology assistance with assessment for LP. Has been complaining of back pain recently, noted L4 compression fracture, 5 mm retropulsion causing severe central canal stenosis. No appearance of hydrocephalus. Does not appear like discitis, or if he has discitis is very early. Consider additional follow-up imaging with contrast CT or MRI. Continue empiric antibiotics with ceftriaxone, vancomycin. Follow-up blood culture ID and sensitivity. Follow-up repeat culture. In case cultures are currently positive consider additional assessment, possibly as PAT to look for any vegetation. Chest x-ray not suggestive of bacterial pneumonia. UA otherwise unremarkable no report of GI symptoms. No diarrhea. Unlikely Tamiflu induced encephalopathy and delirium. She is done with Tamiflu. Less likely encephalopathy secondary to steroid, possible, she will be done with prednisone now. Hold sertraline. For now clear liquid diet, aspiration precautions. (2) Sepsis: Possible sepsis source unclear. As above. (3) Elevated d-dimer: PE, IVC defect concerning for localized thrombus. Was on anticoagulation. Held for now due to anemia, concern for possibility of septic embolization. Not a candidate for IVC filter with possible bacteremia. Additional assessment with lower extremity duplex, right upper extremity duplex for any DVT and additional assessment to locate source of possible sepsis. (4) High anion gap metabolic acidosis: Improving. Anion gap down to 18. Suspect component of mild ketoacidosis on presentation. Does appear to be prediabetic or progressing to diabetes, A1c 6.1. Continue IVF. (5) Hypokalemia: Replace. Check mg. (6) SRINATH (acute kidney injury): Improving with fluid challenge. Continue NS 100 mL/h. Reassess renal function. Hold ARB. (7) Sinus tachycardia: Suspect secondary to dehydration, DKA, possibly sepsis. PE. (8) Hyperglycemia: Prediabetes or may be developing diabetes, A1c 6.1%. Suspected mild acute on presentation with ketonuria, ketonemia, anion gap acidosis. Was started on Lantus, IV hydration. Anion gap improving. Continue lantus. Sliding scale insulin. Consistent carbohydrate for now clear liquid diet. (9) Troponin level elevated: Mild elevation of bili with positive delta. Suspect demand schema secondary sepsis, however, may be unmasking underlying coronary disease. TTE pending. Would benefit [id number] from further assessment once a bit more stable. Currently on anticoagulation. (10) Compression fracture: Has been complaining of back pain recently, noted L4 compression fracture, 5 mm retropulsion causing severe central canal stenosis. No appearance of hydrocephalus. Does not appear like discitis, or if he has discitis is very early. Consider additional follow-up imaging with contrast CT or MRI. Lidocaine patch. (11) Acquired abnormality of inferior vena cava: 0.9 x 1.3 x 1.5 cm partial filling defect in the posterior distal inferior vena cava, at the L4 level. The other visualized large deep veins appear patent. Appearance of possible thrombus. Initially anticoagulated with Lovenox due to PE, however, with culture come back with possible bacteremia 2/4 gram-positive cocci, consideration of possible septic thrombophlebitis. Risk of septic emboli, risk of bleeding. For now held anticoagulation. Noted anemia, hemoglobin down to 10.8. Reassess hemoglobin. (12) Anemia: Hemoglobin down to 10.8. May be dilutional with rehydration after dehydration on presentation, althoug does not appear to have anemia during recent admission. Hold Lovenox for now. Recheck hemoglobin. Check Hemoccult, iron studies. Will additionally assess CT abdomen pelvis for any source hematoma or retroperitoneal bleeding. Plan HTN: Blood pressure was transiently soft this morning down to 97/63 at 10 AM. Currently hypertensive, 174/79. Will likely benefit from optimization, although currently acutely ill, uncomfortable. Suspect should improve at least somewhat with management of acute condition. Olmesartan on hold for now due to SRINATH. Patient reported influenza A positive, has been more than 7 days out. He is currently febrile, but doubt this is continuation of influenza given she had improved. Oxygenation overall appears to have been showing improvement, although still requiring 2 L nasal cannula oxygen currently. D-dimer is e levated, additional evaluation for possibility of PE as above. Discussed with her daughter. Attestations Medical Necessity Statement*: Continue admission for assessment and management of possible sepsis, acute encephalopathy. Critical Care Time: The high probability of a clinically significant, sudden or life threatening deterioration of the patient's infectious disease, hematologic, endocrine, system(s) required my full and direct attention, interv ention and personal management. The critical care time is as shown. This time is in addition to time spent performing any reported procedures but includes the following: x Data and vital sign review and interpretation x Patient assessment, examination and intervention x Documentation x Medication orders and management Critical Care Time (min): 50 Coding Level of Care Code Acute Dramatic Critic for [facility] Fwd Diagnoses Acute encephalopathy G93.40 Sepsis A41.9 Elevated d-dimer R79.89 High anion gap metabolic acidosis E87.29 Hypokalemia E87.6 SRINATH (acute kidney injury) N17.9 Sinus tachycardia R00.0 Hyperglycemia R73.9 Troponin level elevated R77.8 Compression fracture Acquired abnormality of inferior vena cava I87.9 Anemia D64.9
--- NOTE | 2022-11-01 14:42 | USCV_ITS ---
Mildred Graham Age: 72 Gender: F : 1950 Exam Date: 11/01/2022 16:07 Ordering Phys: Randolph Garibay MD Technologist: CT Exam Location: [facility] – [place] Indication: swelling PROCEDURES: Venous duplex imaging was performed in bilateral lower extremities. The following venous structures were evaluated: common femoral vein, profunda vein, proximal portion of the greater saphenous vein, superficial femoral vein, and the popliteal vein. In addition, the posterior tibial and peroneal trunk were evaluated. Serial compression, augmentation maneuvers, and spectral Doppler flow evaluation were performed. FINDINGS: no dvt CONCLUSIONS No evidence of right lower extremity DVT. No evidence of left lower extremity DVT. Gera Underwood MD (Electronically Signed) Final Date: 02 November 2022 10:34 S
--- NOTE | 2022-11-01 14:45 | USCV_ITS ---
Mildred Graham Age: 72 Gender: F : 1950 Exam Date: 11/01/2022 15:38 Ordering Phys: Randolph Garibay MD Technologist: [place] [facility] [facility] [place]: redness,swelling PROCEDURES: Venous duplex imaging was performed in only the right upper extremity. The following venous structures were evaluated: internal jugular vein, subclavian vein, axillary vein, and brachial veins. In addition, the basilic vein, cephalic vein, radial vein, and ulnar vein. Serial compression, augmentation maneuvers, and spectral Doppler flow evaluation were performed. FINDINGS: Right superficial thrombophlebitis in distal ceph vein upperarm CONCLUSIONS Superficial thrombus in RIGHT distal cephalic vein above the elbow near the bandage Remainder patent Message left for Dr Garibay at 1030 am on 11/02/22 D/w Dr. Garibay at 1050am Gera Underwood MD (Electronically Signed) Final Date: 02 November 2022 10:39 Amended: 02 November 2022 10:50 C
--- NOTE | 2022-11-01 14:45 | US_ITS ---
WS: [id number] ULTRASOUND SOFT TISSUES RIGHT antecubital fossa. HISTORY: R AC fossa swelling, assess for abscess COMPARISON: None available. TECHNIQUE: 2-D and color Doppler imaging is submitted. Superficial thrombophlebitis involving the cephalic vein in the antecubital fossa. There is no absces s or fluid collection. No soft tissue mass. US/US soft tissue/extremity [id number] IMPRESSION: 1. No abscess or mass in the antecubital fossa. 2. Superficial thrombophlebitis cephalic vein in the antecubital fossa.
[2022-11-01 16:24] LABS: Hemoglobin 11.7 g/dL (11.5-15.3)
[2022-11-01 16:48] LABS: Ferritin 419 ng/mL (15-150); Iron 14 ug/dL (37-145); Percent Saturation 7.5 % (20-50); Total Iron Binding Capacity 185 mcg/dl; Unsaturated Iron Binding 171 ug/dL (112-347)
--- NOTE | 2022-11-01 18:09 | PM.CONSULT ---
Providers/Reason For Consult Consulting Physician/Specialty*: Dr. Garibay/hospitalist Reason for Consult*: Encephalopathy rule out meningitis Attending Physician: Randolph Garibay Primary Care Provider: Melanie Joyce NP History of Present Illness History of Present Illness Mildred Graham is a 72 year old female with baseline history of hypertension and COPD. She was short of breath when she went to see Kylie Xiong on 09/28/2022. She came to our emergency department 10/25/2022 with severe shortness of breath. She was hospitalized with exacerbation of COPD, worsening shortness of breath. CT angiogram during that hospitalization showed no sign of a pulmonary embolus and no pulmonary infiltrates. She was hypoxic and when she was discharged on 10/28 she was on 6 L of oxygen. She was discharged on prednisone 40 mg a day for 5 days, Pulmicort and oseltamivir. She returned yesterday with confusion and continued shortness of breath. She had a low-grade temperature of 100.9. Her lactate was not elevated. Her white count was severely high at 30.6. She is remained encephalopathic and Dr. Law would like for me to do a spinal tap even though she is on Lovenox for what is now a new pulmonary embolus. Chest CTA yesterday showed small pulmonary emboli in the left upper lobe. CT of the lumbar spine showed partial DVT in the distal inferior vena cava at the L4 level and acute moderate compression fracture of superior L4 with severe central canal stenosis with L4 5 mm retropulsion. Severe central canal stenosis at L4-5. Thoracic spine CT was unremarkable. Head CT showed mild diffuse atrophy (reviewed by me). She has nonspecific white matter changes. CT scan of the ankle showed plate and screw fixation of the distal tibia and fibula with no loosening of the screws and no focal abscess. Ultrasound of the antecubital fossa showed superficial thrombophlebitis involving the cephalic vein in the antecubital fossa but no abscess or fluid formation. 2 out of 4 bottles of blood cultures are showing gram-positive cocci in chains. Review of Systems General: Reports: ROS unobtainable due to medical condition Const: Reports: fever(s) and malaise Neuro: Denies: headache(s) (complaining of ears hurt) Medications/Allergies Home Medications Medication Instructions Recorded Confirmed Last Taken Type albuterol sulfate 2.5 mg/3 mL 2.5 mg (3 mL) inhalation Q4H PRN 03/13/20 11/01/22 10/24/22 Rx (0.083 %) solution for nebulization shortness of breath or wheezing #180 mL aspirin 81 mg tablet,delayed 81 mg PO EVERY OTHER DAY 03/13/20 11/01/22 10/24/22 History release (Adult Aspirin Regimen) acetaminophen 650 mg 650 mg PO Q12H 05/26/20 11/01/22 10/24/22 History tablet,extended release (Arthritis Pain Relief (acetaminophen) ER) omeprazole 20 mg capsule,delayed 20 mg PO DAILY #90 caps 01/13/22 11/01/22 10/24/22 Rx release calcium carbonate 600 mg-vitamin 1 cap PO DAILY 04/02/22 11/01/22 10/24/22 History D3 12.5 mcg (500 unit) capsule (Calcium 600 with Vitamin D3) amlodipine 10 mg tablet 10 mg PO DAILY 10/25/22 11/01/22 10/24/22 History olmesartan 5 mg tablet 5 mg PO DAILY 10/25/22 11/01/22 10/24/22 History pravastatin 40 mg tablet 40 mg PO DAILY 10/25/22 11/01/22 10/24/22 History sertraline 100 mg tablet 100 mg PO BEDTIME 10/25/22 11/01/22 10/24/22 History budesonide 180 mcg/actuation 1 inh inhalation BID 30 days #1 ea 10/28/22 11/01/22 Unknown Rx breath activated powder inhaler (Pulmicort Flexhaler) prednisone 20 mg tablet 40 mg PO DAILY 5 days #5 tabs 10/28/22 11/01/22 Unknown Rx albuterol sulfate 90 mcg/actuation 2 puff inhalation Q4H PRN 11/01/22 11/01/22 Unknown History aerosol inhaler Shortness Of Breath Or Wheezing Allergies Allergy/AdvReac Type Severity Reaction Status Date / Time Sulfa (Sulfonamide Allergy ALGY-Rash Verified 11/01/22 08:58 Antibiotics) Current Medications Generic Name Dose Route Start Last Admin Trade Name Freq PRN Reason Stop Dose Admin Enoxaparin Sodium 70 mg 10/31/22 19:32 11/01/22 08:39 Enoxaparin 80 Mg/0.8 Ml Syringe SUBCUT 70 mg Q12H MILAGROS Administration Vancomycin HCl 1,000 mg/ 250 mls @ 250 mls/hr 10/31/22 20:00 10/31/22 22:14 Sodium Chloride IV Infused Q24H MILAGROS Infusion Protocol As Directed Sodium Chloride 1,000 mls @ 100 mls/hr 10/31/22 18:16 11/01/22 13:41 Sodium Chloride 0.9% IV Not Given .Q10H MILAGROS Sodium Chloride 1,000 mls @ 100 mls/hr 10/31/22 21:10 11/01/22 16:28 Sodium Chloride 0.9% IV 100 mls/hr .Q10H MILAGROS Administration Ceftriaxone Sodium 2,000 mg/ 50 mls @ 100 mls/hr 11/01/22 11:30 11/01/22 13:14 Sodium Chloride IV 100 mls/hr Q12H MILAGROS Administration Protocol Lidocaine 1 patch 11/01/22 13:00 11/01/22 13:15 Lidocaine 5% Patch TOPICAL 1 patch [id number] MILAGROS Administration Pantoprazole Sodium 40 mg 10/31/22 21:10 10/31/22 21:49 Pantoprazole 40 Mg Sdv IVP 40 mg Q24H MILAGROS Administration PFSH Acute PFSH: Medical History COPD (chronic obstructive pulmonary disease) Depression GERD (gastroesophageal reflux disease) 1 para 1 Hyperlipidemia Hypertension Osteoporosis Post-traumatic arthritis of right ankle Stress incontinence in female Vitamin D deficiency Surgical History History of cataract surgery bialteral History of elbow surgery left, due to nerve entrapment History of tubal ligation Status post open reduction and internal fixation (ORIF) of fracture (12/2020) Dr. Lao; right pilon fracture, right fibular fracture Family History Father Cancer Type of cancer not known (unknown primary), but was in the lungs Mother , age 54 from respiratory disease, COPD, heavy smoker Lung disease Other Diabetes Social History Smoking and tobacco status: former smoker Alcohol intake: current Alcohol intake frequency: holidays/special occasions only Lives independently: Yes Household members: none Vitals/I&O/Wt Last Vital Signs Temp 100.1 F H 11/01/22 06:08 Pulse 116 H 11/01/22 16:00 Resp 26 H 11/01/22 16:00 BP 174/79 11/01/22 16:00 Pulse Ox 93 11/01/22 16:00 O2 Del Method 11/01/22 09:39 O2 Flow Rate 5 11/01/22 09:39 11/01/22 11/01/22 11/01/22 06:59 14:59 22:59 Intake Total 1031.667 / 1431.667 Output Total 1000 / 1300 Balance 31.667 / 131.667 Weight last 48 hrs Weight 158 lb 4.8 oz Weight 158 lb 4.8 oz Weight 163 lb Physical Exam Narrative: Agitated woman who looks older than her age. She had wandering eye movements and making a repetitive movement with her right hand. She is diffusely rigid. She could tell me her name. There is a long latency between asking her question and getting an answer and she is not consistent. She could not tell me her birthdate. She said 3 which does not make sense. She has excellent strength in all 4 extremities although resistance testing is not possible. She has a coarse tremor in her face and the right arm. She resists all movement. She has hyperextension of the neck although her neck was fairly supple. She is hyperextending her back. She keeps the left arm stiff as if she is holding to the bed and with the right hand she has repetitive movement. She keeps the right knee flexed and when I extend it she complains of pain in the knee. The left leg is extended. The toes are upgoing bilaterally. HEENT: No rash. Normocephalic. Neck: Her neck was actually supple although she has her back extended. Chest: Clear to auscultation Cardiovascular: S1 and S2 normal without murmur gallop Abdomen soft and nontender Extremities no rash or deformities Urinary Catheter Management: Sanders: Cath Placed During This Visit: yes Reason for Continuing Indwelling Catheter: Accurate Measurement of Urinary Output in Critically Ill Patients Urinary Catheter Date of Insertion: 11/01/22 Urinary Catheter Time of Insertion: 00:33 Data 11/01/22 16:00 11/01/22 02:11 Micro: Microbiology 11/01/22 12:07 Blood Culture - Preliminary Blood SPECIMEN COLLECTED 11/01/22 12:05 Blood Culture - Preliminary Blood SPECIMEN COLLECTED 10/31/22 17:32 Blood Culture - Preliminary Blood 10/31/22 17:26 Blood Culture - Preliminary Blood A&P Assessment and plan (1) Acute encephalopathy: There is a very complex 72-year-old woman who developed shortness of breath that was of unclear origin when she was here the last time., She did not have pneumonia or pulmonary embolus and no cause for her severe hypoxia could be determined beyond COPD exacerbation. She now presents with what looks like a new compression fracture in her lumbar spine, a DVT in the inferior vena cava with small pulmonary emboli that again are not enough to explain her hypoxemia. She looks septic, her encephalopathy looks like severe encephalopathy from sepsis and is of concern for meningitis. Her blood culture shows gram-positive cocci in chains and so there is pretty good chance she has meningitis from the same organism. She has been treated with antibiotics for more than 24 hours in the chance of obtaining a diagnosis of her [employer] organism from spinal fluid would be slim. I have concerned about the close to spinal block that she has at L4-5 and I am fearful that changing the subarachnoid pressure by lumbar puncture could precipitate complete spinal block and paralysis in the legs. If obtaining spinal fluid is not absolutely essential I would avoid it at this time. She is profoundly encephalopathic and profoundly ill. Paraneoplastic should be considered. Very mass has not been found on multiple CTs. He had been in pelvis have only been scanned in the upper portion where her liver looks unremarkable and nothing described in the spleen but the lower abdomen might bear her further exam especially since the inferior vena cava shows occlusion. I will follow with you and if I can safely obtain spinal fluid I will do it. Thanks for asking me to participate in her care. (2) Sepsis: (3) Stenosis, spinal, lumbar: (4) Acute deep vein thrombosis (DVT) of inferior vena cava: Consult Attestations Medical Necessity Statement: Profoundly encephalopathic and acutely ill Time Spent in Patient Care: 60 minutes Coding Level of Care Code Acute [employer] for [facility] Fw Diagnoses Acute encephalopathy G93.40 Sepsis A41.9 Stenosis, spinal, lumbar M48.061 Acute deep vein thrombosis (DVT) of inferior vena cava I82.220
[2022-11-01] MEDS: heparin drip 25,000 UNIT/500 ML PREMIX 20 UNIT IV (19:45)
[2022-11-01] MEDS: heparin 5,000 unit/mL INJ 1 mL IV (19:57)
[2022-11-01 20:02] LABS: Platelet Count 356 10^3/cmm (130-400)
[2022-11-01] MEDS: vancomycin 1,000 MG in sodium chloride 0.9% 250 ML 250 MG IV (20:24)
[2022-11-01] MEDS: pantoprazole 40 mg SDV IVP (20:27)
--- NOTE | 2022-11-01 20:33 | PC.NURSE ---
Reported increased BP's to Dr. Berrios . Current vitals: BP 188/911, HR 114, SpO2 93% NC 4L, RR 25. No new orders at this time.
[2022-11-01] MEDS: labetalol 5 mg/mL SDV 20mL 10 MG IVP (20:52)
--- NOTE | 2022-11-01 20:58 | PC.NURSE ---
BG is 88, pt unable to safely drink juice, a mouth swab w/ juice was used. Plan to monitor BG more frequently this shift. Changing accu check assessment to Q1H.
[2022-11-01 21:03] LABS: Glucose Point of Care 88 mg/dL (70-110)
[2022-11-01 22:26] LABS: Glucose Point of Care 97 mg/dL (70-110)
[2022-11-02] VITALS (49 sets, daily range): BP systolic 138–184; BP diastolic 63–109; PULSE 58–107; RESP 20–37; TEMP 36.8–37.6; O2SAT 89–97
[2022-11-02 00:18] LABS: Glucose Point of Care 91 mg/dL (70-110)
[2022-11-02] MEDS: cefTRIAXone 2,000 MG in sodium chloride 0.9% (plus) 50 ML 100 MG IV ×3 (00:20→23:48)
--- NOTE | 2022-11-02 01:06 | PC.NURSE ---
Reported increased BP's to Dr. Berrios. Current vitals: BP 184/88, HR 102 SR, SpO2 93%, RR 26. No new orders at this time.
[2022-11-02 01:35] LABS: Glucose Point of Care 93 mg/dL (70-110)
[2022-11-02 02:00] LABS: Basophils % 0.1 %; Hematocrit 38.2 % (37.0-47.0); Hemoglobin 11.7 g/dL (11.5-15.3); Lymphocytes # 0.6 10^3/uL (0.8-4.8); Lymphocytes % 3.5 %; Mean Corpuscular HGB Conc 30.6 g/dL (30.0-36.0); Mean Corpuscular Hemoglobin 23.5 pg (28.0-34.0); Mean Corpuscular Volume 76.9 fl (81-99); Mean Platelet Volume 11.8 fL (7.4-10.4); Monocytes # 1.1 10^3/uL (0.2-0.9); Monocytes % 6.4 %; Neutrophils # 15.36 10^3/uL (1.8-7.7); Neutrophils % 88.7 %; Nucleated Red Blood Cells % 0 %; Platelet Count 361 10^3/cmm (130-400); Red Blood Count 4.97 10^6/uL (4.1-5.3); Red Cell Distribution Width 15.9 % (12.1-15.1); White Blood Count 17.3 10^3/uL (4.0-10.0)
[2022-11-02 02:23] LABS: Alanine Aminotransferase 15 U/L (0-33); Albumin Level 3.3 g/dL (3.5-5.2); Alkaline Phosphatase 57 U/L (35-105); Aspartate Amino Transferase 17 U/L (0-32); Blood Urea Nitrogen 19 mg/dL (8-23); Calcium 9.1 mg/dL (8.5-10.5); Carbon Dioxide 22 mmol/L (22-29); Chloride 106 mmol/L (98-107); Glucose 95 mg/dL (65-115); Osmolality Calculated 304 mOsm/kg (285-295); Sodium 146 mmol/L (136-145); Total Bilirubin 0.2 mg/dL (0.15-1.2); Total Protein 6.3 g/dL (6.6-8.7)
[2022-11-02 02:31] LABS: Partial Thromboplastin Time 127.9 SECONDS (23.9-36.7)
[2022-11-02 02:36] LABS: Anion Gap 21.1 (5-19); Potassium 3.1 mmol/L (3.5-5.1)
[2022-11-02] MEDS: sodium chloride 0.9% 1,000 ML 100 ML IV ×2 (02:50→10:21)
[2022-11-02 06:35] LABS: Glucose Point of Care 87 mg/dL (70-110)
[2022-11-02 08:05] LABS: Glucose Point of Care 86 mg/dL (70-110)
[2022-11-02 08:08] LABS: Adenovirus Not Detected (NOT DETECT); Chlamydia Pneumoniae Not Detected (NOT DETECT); Coronavirus 229E,HKU1,NL63,OC4 Not Detected (NOT DETECT); Human Metapneumovirus Not Detected (NOT DETECT); Human Rhinovirus/Enterovirus Not Detected (NOT DETECT); Influenza A Not Detected (NOT DETECT); Influenza A H1 Not Detected (NOT DETECT); Influenza A H1-2009 Not Detected (NOT DETECT); Influenza A H3 Not Detected (NOT DETECT); Influenza B Not Detected (NOT DETECT); Mycoplasma Pneumoniae Not Detected (NOT DETECT); Parainfluenza Virus Type 1 Not Detected (NOT DETECT); Parainfluenza Virus Type 2 Not Detected (NOT DETECT); Parainfluenza Virus Type 3 Not Detected (NOT DETECT); Parainfluenza Virus Type 4 Not Detected (NOT DETECT); Respiratory Syncytial Virus A Not Detected (NOT DETECT); Respiratory Syncytial Virus B Not Detected (NOT DETECT); SARS-COV-2 Not Detected (NOT DETECT)
[2022-11-02 08:12] LABS: Partial Thromboplastin Time 98.8 SECONDS (23.9-36.7)
[2022-11-02] MEDS: iohexol 350 mg/mL 500 mL Btl (per mL) IV (09:53)
[2022-11-02] MEDS: LORazepam 2 mg/mL INJ 1 mL 0.5 MG IVP (11:40)
[2022-11-02 12:57] LABS: Glucose Point of Care 83 mg/dL (70-110)
[2022-11-02] MEDS: insulin glargine 100 units/1 mL 10 UNIT SUBCUT (13:57)
[2022-11-02] MEDS: dextrose 5%-sod chloride 0.45% 1,000 ML 100 ML IV ×2 (13:57→23:53)
[2022-11-02] MEDS: lidocaine 1% 5 ML in potassium chloride premix 100 ML 50 ML IV (13:58)
--- NOTE | 2022-11-02 15:29 | CT_ITS ---
WS: [id number] EXAMINATION: CT abdomen pelvis w con* [id number] REASON FOR EXAM: Assess for psoas or retroperitoneal hematoma or collection COMPARISON: None available. IV CONTRAST ADMINISTERED: Omnipaque 350 100 ml TOTAL EXAM DLP: 787.[address] scans at [facility] use at least one of these dose optimization techniques: automat ed exposure control; mA and/or kV adjustment per patient size (includes targeted exams where dose is matched to clinical indication); or iterative reconstruction. FINDINGS: There is minor right basal atelectasis.. There is no sign of pneumoperitoneum. The liver was unremarkable. The gallbladder, spleen and pancreas were unremarkable. There is a normal appearance of both adrenal glands and both kidneys with partial extrarenal pelvis b ilaterally. The small bowel pattern is not significantly dilated and there are no significant air-fluid levels. There is a normal-appearing appendix. There is moderate fecal loading of the colon and rectum. Small bilateral inguinal hernias. There is marked atherosclerotic aortic and iliac calcified plaque with high-grade stenosis involving the proximal right common iliac artery. There is mild stenosis at the origin of the superior mesenter ic artery. There is calcified plaque and mild stenosis at the origin of the celiac artery. There is no ascites or increased cul-de-sac fluid. The urinary bladder is decompressed by a Sanders ca theter.. There are degenerative disc and spine changes with generalized spondylosis. There is an old compressi on fracture involving the superior endplate of L4. CT/CT abdomen pelvis w con* [id number] IMPRESSION: Rectal fecal impaction. Prominent atherosclerotic vascular changes as noted above especially notable hi gh-grade stenosis in the right common iliac artery. Old compression fracture of the superior endplate of L4.
--- NOTE | 2022-11-02 16:04 | PC.NURSE ---
3rd run of v tach this shift, EKG showed inferior MN possibly acute, Dr. Ho gave t.o. to start lidocaine drip and consult with cardiology prior to starting
[2022-11-02] MEDS: fluconazole premix 400 MG/200 ML PIGGYBACK 200 MG IV (17:16)
[2022-11-02 17:27] LABS: Glucose Point of Care 125 mg/dL (70-110)
--- NOTE | 2022-11-02 18:38 | P.PN_ITS ---
Subjective Subjective: Today she is rather anxious, sister states he is not recognizing her, her, use more alert, and in fact able to interact, answering questions. He is not oriented, unable to provide history. Denies pain. Concern expressed by her nurse that she is not aware that she may be having dysphagia. Vitals/I&O/Wt Last Vital Signs Temp 98.2 F 11/02/22 10:30 Pulse 81 11/02/22 16:00 Resp 28 H 11/02/22 16:00 BP 166/79 11/02/22 16:00 Pulse Ox 94 11/02/22 16:00 O2 Del Method 11/02/22 12:00 O2 Flow Rate 3 11/02/22 12:00 11/02/22 11/02/22 11/02/22 06:59 14:59 22:59 Intake Total 1123.333 / 1676.666 910.200 / 910.200 76.083 / 986.283 Output Total 1750 / 3550 1400 / 1400 Balance -626.667 / -1873.334 910.200 / 910.200 -1323.917 / -413.717 Weight last 48 hrs Weight 71.123 kg Weight 71.804 kg Weight 71.804 kg Physical Exam Narrative: Sister and [id number] at bedside. Const: COMMON NORMALS: alert; negative for patient oriented x3 GENERAL APPEARANCE: not cooperative ORIENTATION/CONSCIOUSNESS: Yes awake and Yes confused Neck/C-Spine: COMMON NORMALS: no JVD Resp: COMMON NORMALS: normal respiratory effort and clear to auscultation bilaterally AUSCULTATION: clear to auscultation bilaterally Cardio: COMMON NORMALS: no JVD, regular rhythm, S1 normal heart sound present, S2 normal heart sound present and No murmurs present (Cardio) RHYTHM: regular rhythm HEART SOUNDS: S1 normal heart sound present and S2 normal heart sound present GI: COMMON NORMALS: Normal to inspection, nondistended, normoactive bowel sounds present, Soft to palpation and non-tender PALPATION: Yes Soft to palpation Extremity: COMMON NORMALS: no joint enlargement and no pedal edema Neuro: COMMON NORMALS: moves all extremities; negative for patient oriented x3 SENSORIUM/ORIENTATION: Yes alert Skin: COMMON NORMALS: no rashes or lesions noted GENERAL SKIN EXAM: no rashes or lesions noted Urinary Catheter Management: Sanders: Cath Placed During This Visit: yes Reason for Continuing Indwelling Catheter: Accurate Measurement of Urinary Output in Critically Ill Patients Urinary Catheter Date of Insertion: 11/01/22 Urinary Catheter Time of Insertion: 00:33 Data 11/02/22 01:29 11/02/22 01:29 Micro: Microbiology 10/31/22 17:32 Blood Culture - Preliminary Blood Group g streptococcus 10/31/22 17:26 Blood Culture - Preliminary Blood Group g streptococcus 11/01/22 12:07 Blood Culture - Preliminary Blood NEGATIVE TO DATE 11/01/22 12:05 Blood Culture - Preliminary Blood NEGATIVE TO DATE A&P Assessment and plan (1) Acute encephalopathy: Acute encephalopathy persists, she is confused, unable to provide history but today actually is doing better as she is able to interact, answers to some questions and review of systems. Is not recognizing her sister and [id number]. Suspected acute encephalopathy secondary to severe sepsis. Unlikely Tamiflu induced encephalopathy and delirium. She is done with Tamiflu. Less likely encephalopathy secondary to steroid, possible, she will be done with prednisone now. Hold sertraline. (2) Sepsis: Group g strep on blood culture. Discussed with her sister and [id number] septic thrombophlebitis originating in the right antecubital fossa with superficial phlebitis cephalic vein. Discussed also presence of the thrombus in IVC again as well as again considering anticoagulation and its benefits and risks and her condition. Additional continue empiric ceftriaxone, vancomycin, discussed cannot exclude bacterial meningitis, although currently pursuing additional evaluation with LP unlikely would be associated with risks higher than benefits. Discussed results of head CT, right ankle CT. CT abdomen pelvis obtained as well, incidentally noted prominent atherosclerotic vascular changes, again noted compression fracture, but no other localized findings that may suggest other focus of infection. Leukocytosis now noted improving. So far today without recurrence of fever. May benefit also from PAT. We will see if we will be possible over the next few days. Persistent confusion, recurrent low-grade fever. On presentation leukocytosis 30,000. Bacteremia with 2/4 bottles gram-positive cocci reported on blood c ulture. Unclear if this may be contaminant, culture repeated. In case of your bacteremia source unclear. Did have hospitalization recently. No port or PICC line. In terms of foreign bodies had right ankle fracture in the past and has some hardware there. Imaged with CT, no appearance of infection around the hardware or loose hardware. Does appear to have swelling and bruising of the right antecubital fossa. On discussion with nursing staff also draining some serous drainage from there. W ill assess soft tissue ultrasound for any abscess or collection. Will assess duplex ultrasound for any DVT in the right arm. CT head largely unremarkable. 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 Has been complaining of back pain recently, noted L4 compression fracture, 5 mm retropulsion causing severe central canal stenosis. No appearance of hydrocephalus. Does not appear like discitis, or if he has discitis is very early. Consider additional follow-up imaging with contrast CT or MRI. Continue empiric antibiotics with ceftriaxone, vancomycin. Follow-up blood culture ID and sensitivity. Follow-up repeat culture. In case cultures are currently positive consider additional assessment, possibly as PAT to look for any vegetation. Chest x-ray not suggestive of bacterial pneumonia. UA otherwise unremarkable no report of GI symptoms. No diarrhea. (3) Elevated d-dimer: PE, IVC defect concerning for localized thrombus. Was on anticoagulation. Held for now due to anemia, concern for possibility of septic embolization. Not a candidate for IVC filter with possible bacteremia. Additional assessment with lower extremity duplex, right upper extremity duplex for any DVT and additional assessment to locate source of possible sepsis. (4) High anion gap metabolic acidosis: Again gap acidosis, gap 21.1. Again odor of ketones. Glucose only in the 80s. Change fluids to D5 half-normal with additional insulin. Continue also sliding scale. Continue rehydration. (5) Hypokalemia: Replace. (6) SRINATH (acute kidney injury): Resolving with fluid challenge. Reassess renal function. Hold ARB. (7) Sinus tachycardia: Suspect secondary to dehydration, DKA, possibly sepsis. PE. (8) Hyperglycemia: Prediabetes or may be developing diabetes, A1c 6.1%. Suspected mild acute on presentation with ketonuria, ketonemia, anion gap acidosis. Was started on Lantus, IV hydration. Anion gap improving. Continue lantus. Sliding scale insulin. Consistent carbohydrate for now clear liquid diet. (9) Troponin level elevated: Mild elevation of bili with positive delta. Suspect demand schema secondary sepsis, however, may be unmasking underlying coronary disease. TTE pending. Would benefit [id number] from further assessment once a bit more stable. Currently on anticoagulation. (10) Compression fracture: Has been complaining of back pain recently, noted L4 compression fracture, 5 mm retropulsion causing severe central canal stenosis. No appearance of hydrocephalus. Does not appear like discitis, or if he has discitis is very early. Consider additional follow-up imaging with contrast CT or MRI. Lidocaine patch. (11) Acquired abnormality of inferior vena cava: 0.9 x 1.3 x 1.5 cm partial filling defect in the posterior distal inferior vena cava, at the L4 level. The other visualized large deep veins appear patent. Appearance of possible thrombus. Discussed risk of bleeding, resume anticoagulation due to central venous thrombosis. (12) Anemia: Hemoglobin down to 10.8. May be dilutional with rehydration after dehydration on presentation, althoug does not appear to have anemia during recent admission. Hold Lovenox for now. Recheck hemoglobin. Check Hemoccult, iron studies. No retroperitoneal/psoas hematoma on CT. Plan HTN: Olmesartan on hold for now due to SRINATH. Patient reported influenza A positive, has been more than 7 days out. He is currently febrile, but doubt this is continuation of influenza given she had improved. Oxygenation overall appears to have been showing improvement, although still requiring 2 L nasal cannula oxygen currently. D-dimer is elevated, additional evaluation for possibility of PE as above. Discussed with her daughter. Attestations Medical Necessity Statement*: Continue admission for assessment and management of acute encephalopathy, sepsis, septic, phlebitis with streptococcal bacteremia. Coding Level of Care Code [facility] Diagnoses Acute encephalopathy G93.40 Sepsis A41.9 Elevated d-dimer R79.89 High anion gap metabolic acidosis E87.29 Hypokalemia E87.6 SRINATH (acute kidney injury) N17.9 Sinus tachycardia R00.0 Hyperglycemia R73.9 Troponin level elevated R77.8 Compression fracture Acquired abnormality of inferior vena cava I87.9 Anemia D64.9
--- NOTE | 2022-11-02 18:55 | USCV_ITS ---
Santos Mildred Age: 72 Gender: F : 1950 Exam Date: 11/02/2022 02:24 Ordering Phys: Randolph Garibay MD Technologist: NAHED Exam Location: [facility] [place] Indication: Assess for septal defects, possible septic thrombophlebitis. Patient is confused, in ICU-4 BP: 174 / 79 HR: 97 Rhythm: Sinus Technical Quality: Adequate MEASUREMENTS (Male / Female) Normal Values 2D ECHO LV Diastolic Diameter PLAX 4.4 cm 4.2 - 5.9 / 3.9 - 5.3 cm LV Systolic Diameter PLAX 2.7 cm IVS Diastolic Thickness 1.0 cm 0.6 - 1.0 / 0.6 - 0.9 cm IVS Systolic Thickness 1.7 cm LVPW Diastolic Thickness 0.9 cm 0.6 - 1.0 / 0.6 - 0.9 cm LVPW Systolic Thickness 1.6 cm LVOT Diameter 1.9 cm LV Ejection Fraction 2D Teich 69.1 % LV Ejection Fraction MOD 2C 66.7 % LV Ejection Fraction 2C AL 67.3 % LA Diameter 3.4 cm LA Width 3.1 cm LA Height 5.0 cm RA Width 2.1 cm RA Height 3.5 cm Aorta at Sinotubular Diameter 2.4 cm IVC Diameter 1.7 cm M-MODE Aortic Annulus Diameter 2.7 cm LA Ao Ratio MM 1.1 MV E Point Septal Separation 0.2 cm DOPPLER AV Peak Velocity 163.0 cm/s LVOT Peak Velocity 132.0 cm/s AV Area Cont Eq vti 2.2 cm squared AV Area Cont Eq pk 2.3 cm squared MV Peak Velocity 179.0 cm/s MV Area PHT 3.0 cm squared Mitral E to A Ratio 0.6 MV E' Velocity 58.5 cm/s Mitral E to MV E' Ratio 13.6 Mitral E to LV E' Lateral Ratio 15.1 Mitral E to LV E' Septal Ratio 12.5 TV Peak E Velocity 50.0 cm/s PV Peak Velocity 116.0 cm/s RV Acceleration Time 0.2 s RV Ejection Time 0.3 s RV AcT/ET 0.6 FINDINGS Left Ventricle Normal left ventricular size, systolic function and wall thickness, with no regional wall motion abnormalities. Left ventricular ejection fraction is estimated at 70 %. Grade I diastolic dysfunction (abnormal relaxation filling pattern), normal to mildly elevated filling pressures. Right Ventricle Normal right ventricular size and systolic function. RVSP could not be calculated due to incomplete tricuspid regurgitation velocity profile. Right Atrium Normal right atrial size. Left Atrium Normal left atrial size. Mitral Valve Mild mitral annular calcification. Structurally normal mitral valve. No mitral valve stenosis. Trace mitral valve regurgitation. Aortic Valve Mildly thickened trileaflet aortic valve. No aortic valve stenosis. No aortic valve regurgitation. Tricuspid Valve Structurally normal tricuspid valve. Trace tricuspid valve regurgitation. Pulmonic Valve Pulmonic valve not well visualized. No pulmonary valve stenosis. Trace pulmonary valve regurgitation. Pericardium No pericardial effusion. Aorta Normal size aortic root and proximal ascending aorta. IVC Normal IVC dimension with >50% respiratory change of the inferior vena cava. CONCLUSIONS 1. Normal left ventricular size, systolic function and wall thickness, with no regional wall motion abnormalities. Left ventricular ejection fraction is estimated at 70 %. Grade I diastolic dysfunction (abnormal relaxation filling pattern), normal to mildly elevated filling pressures. 2. Normal right ventricular size and systolic function. 3. No evidence of intracardiac shunt based on color Doppler. Emily Serra MD (Electronically Signed) Final Date: 02 November 2022 12:40 S
[2022-11-02] MEDS: vancomycin 1,000 MG in sodium chloride 0.9% 250 ML 250 MG IV (19:33)
[2022-11-02 20:33] LABS: Partial Thromboplastin Time 65.5 SECONDS (23.9-36.7)
[2022-11-02] MEDS: pantoprazole 40 mg SDV IVP (22:12)
[2022-11-02 22:47] LABS: Glucose Point of Care 129 mg/dL (70-110)
[2022-11-03] VITALS (27 sets, daily range): BP systolic 131–191; BP diastolic 63–107; PULSE 72–119; RESP 16–42; TEMP 36.4–37.3; O2SAT 89–97
[2022-11-03 03:05] LABS: Basophils % 0.1 %; Eosinophils % 0.1 %; Hematocrit 37.5 % (37.0-47.0); Hemoglobin 11.6 g/dL (11.5-15.3); Lymphocytes # 0.8 10^3/uL (0.8-4.8); Mean Corpuscular HGB Conc 30.9 g/dL (30.0-36.0); Mean Corpuscular Hemoglobin 23.3 pg (28.0-34.0); Mean Corpuscular Volume 75.3 fl (81-99); Mean Platelet Volume 12.2 fL (7.4-10.4); Monocytes # 0.9 10^3/uL (0.2-0.9); Monocytes % 8.5 %; Neutrophils # 8.91 10^3/uL (1.8-7.7); Neutrophils % 82.8 %; Nucleated Red Blood Cells % 0 %; Platelet Count 355 10^3/cmm (130-400); Red Blood Count 4.98 10^6/uL (4.1-5.3); Red Cell Distribution Width 15.7 % (12.1-15.1); White Blood Count 10.8 10^3/uL (4.0-10.0)
[2022-11-03 03:20] LABS: Partial Thromboplastin Time 69.2 SECONDS (23.9-36.7)
[2022-11-03 03:38] LABS: Alanine Aminotransferase 23 U/L (0-33); Alkaline Phosphatase 52 U/L (35-105); Aspartate Amino Transferase 23 U/L (0-32); Blood Urea Nitrogen 9 mg/dL (8-23); Carbon Dioxide 27 mmol/L (22-29); Glucose 130 mg/dL (65-115); Total Bilirubin 0.2 mg/dL (0.15-1.2)
[2022-11-03 03:50] LABS: Osmolality Calculated 292 mOsm/kg (285-295)
[2022-11-03 04:05] LABS: Anion Gap 13.2 (5-19); Chloride 103 mmol/L (98-107); Sodium 141 mmol/L (136-145)
[2022-11-03 04:15] LABS: Potassium 2.2 mmol/L (3.5-5.1)
[2022-11-03] MEDS: lidocaine 1% 5 ML in potassium chloride premix 100 ML 25 ML IV (04:45)
[2022-11-03 08:10] LABS: Glucose Point of Care 128 mg/dL (70-110)
[2022-11-03] MEDS: lidocaine 5% Patch 1 PATCH TOPICAL (08:17)
[2022-11-03] MEDS: amlodipine 10 mg Tablet PO (08:17)
[2022-11-03] MEDS: heparin drip 25,000 UNIT/500 ML PREMIX 12 UNIT IV (08:33)
[2022-11-03 08:39] LABS: Partial Thromboplastin Time 50.9 SECONDS (23.9-36.7)
[2022-11-03] MEDS: acetaminophen 325 mg Tablet 650 MG PO ×3 (09:41→23:56)
[2022-11-03] MEDS: dextrose 5%-sod chloride 0.45% 1,000 ML 100 ML IV (09:44)
--- NOTE | 2022-11-03 10:36 | PC.NURSE ---
Upon morning assessment, patient is alert to person, place, and situation. Not to time.
--- NOTE | 2022-11-03 10:37 | PC.NURSE ---
Patient is complaining of lower back pain, 10/. Patient states that tylenol is usually effective at home. Nurse is giving tylenol for pain relief as well as a scheduled lidocaine patch and getting patient out of bed up to a chair.
--- NOTE | 2022-11-03 11:37 | PC.NURSE ---
Nurse gave report to Angle LAZO. patient transferred to room 271 bed 1. Paient send with bag of clothes and glasses
[2022-11-03 12:08] LABS: Glucose Point of Care 193 mg/dL (70-110)
[2022-11-03] MEDS: cefTRIAXone 2,000 MG in sodium chloride 0.9% (plus) 50 ML 100 MG IV ×2 (12:08→23:56)
--- NOTE | 2022-11-03 14:12 | PM.PN ---
Subjective Subjective: Today she appears to be doing much better. She is now oriented to person place and time. From before hospitalization she remembers being very confused and having trouble with her oxygen. Does not remember being bothered by anything else in particular. Currently denies any pain or discomfort. Vitals/I&O/Wt Last Vital Signs Temp 97.7 F 11/03/22 12:00 Pulse 96 11/03/22 12:00 Resp 30 H 11/03/22 12:00 BP 143/70 11/03/22 12:00 Pulse Ox 97 11/03/22 12:00 O2 Del Method 11/03/22 09:00 O2 Flow Rate 3 11/03/22 09:00 11/02/22 11/03/22 11/03/22 22:59 06:59 14:59 Intake Total 2085.683 / 2995.883 1115.333 / 4111.216 1527.767 / 1527.767 Output Total 1400 / 1400 900 / 2300 250 / 250 Balance 685.683 / 1595.883 215.333 / 0069.137 7299.767 / 1277.767 Weight last 48 hrs Weight 72.303 kg Weight 71.123 kg Physical Exam Narrative: [id number] at bedside. Const: COMMON NORMALS: patient oriented x3 and alert GENERAL APPEARANCE: not cooperative ORIENTATION/CONSCIOUSNESS: Yes awake Neck/C-Spine: COMMON NORMALS: no JVD Resp: COMMON NORMALS: normal respiratory effort and clear to auscultation bilaterally AUSCULTATION: clear to auscultation bilaterally Cardio: COMMON NORMALS: no JVD, regular rhythm, S1 normal heart sound present, S2 normal heart sound present and No murmurs present (Cardio) RHYTHM: regular rhythm HEART SOUNDS: S1 normal heart sound present and S2 normal heart sound present GI: COMMON NORMALS: Normal to inspection, nondistended, normoactive bowel sounds present, Soft to palpation and non-tender PALPATION: Yes Soft to palpation Extremity: COMMON NORMALS: no joint enlargement and no pedal edema Neuro: COMMON NORMALS: patient oriented x3 and moves all extremities SENSORIUM/ORIENTATION: Yes alert Skin: COMMON NORMALS: no rashes or lesions noted GENERAL SKIN EXAM: no rashes or lesions noted Urinary Catheter Management: Sanders: Cath Placed During This Visit: yes Reason for Continuing Indwelling Catheter: Accurate Measurement of Urinary Output in Critically Ill Patients Urinary Catheter Date of Insertion: 11/01/22 Urinary Catheter Time of Insertion: 00:33 Data 11/03/22 02:13 11/03/22 02:13 Micro: Microbiology 10/31/22 17:32 Blood Culture - Preliminary Blood Group g streptococcus 10/31/22 17:26 Blood Culture - Preliminary Blood Group g streptococcus 11/01/22 12:07 Blood Culture - Preliminary Blood NEGATIVE TO DATE 11/01/22 12:05 Blood Culture - Preliminary Blood NEGATIVE TO DATE A&P Assessment and plan (1) Acute encephalopathy: She has made quite significant improvement. Today she is alert and oriented x3. She sitting up in chair. Comfortable, conversant, recalls being confused prior to hospitalization, having trouble with her oxygen, does not remember any other new changes. Suspected acute encephalopathy secondary to severe sepsis, probably less likely although could not entirely exclude possible bacterial meningitis. Group B strep bacteremia noted. Suspected septic thrombophlebitis. No intracardiac shunt TTE bubble study. Unlikely Tamiflu induced encephalopathy and delirium. She is done with Tamiflu. Less likely encephalopathy secondary to steroid, possible, she will be done with prednisone now. Hold sertraline. PT, OT assessment. (2) Sepsis: Discussed with her findings so far, as well as her condition. Continue empiric antibiotic coverage with ceftriaxone, vancomycin. Follow-up blood culture ID and sensitivities. Group g strep on gram stain. Septic thrombophlebitis, probably less likely although could not entirely exclude possible bacterial meningitis. L4 compression fracture appears uncomplicated, lower likelihood but not entirely excluded is early discitis. Discussed also presence of the thrombus in IVC again as well as again considering anticoagulation and its benefits and risks and her condition. Withhold sertraline so as not to increase bleeding risk. Due to above reasons will need prolonged course of antibiotic, discussed with her aim for 6 weeks of IV antibiotics likely with ceftriaxone 1 g daily follow-up repeat blood cultures for clearance before insertion of PICC line. Repeat blood culture today. PAT may still be beneficial, will check who is on for cardiology over the next few days. Appreciated results of head CT, right ankle CT. CT abdomen pelvis obtained as well, incidentally noted prominent atherosclerotic vascular changes, again noted compression fracture, but no other localized findings that may suggest other focus of infection. Leukocytosis now resolving. So far today without recurrence of fever. Sepsis resolving. Persistent confusion, recurrent low-grade fever. On presentation leukocytosis 30,000. Bacteremia with 2/4 bottles gram-positive cocci reported on blood culture. Unclear if this may be contaminant, culture repeated. In case of your bacteremia source unclear. Did have hospitalization recently. No port or PICC line. In terms of foreign bodies had right ankle fracture in the past and has some hardware there. Imaged with CT, no appearance of infection around the hardware or loose hardware. Does appear to have swelling and bruising of the right antecubital fossa with superficial thrombophlebitis. Has been complaining of back pain recently, noted L4 compression fracture, 5 mm retropulsion causing severe central canal stenosis. No appearance of hydrocephalus. Does not appear like discitis, or if he has discitis is very early. Follow-up with infectious disease. Chest x-ray not suggestive of bacterial pneumonia. UA otherwise unremarkable no report of GI symptoms. No diarrhea. (3) Elevated d-dimer: PE, IVC defect concerning for localized thrombus. On anticoagulation with heparin drip. Also noted superficial thrombophlebitis cephalic vein and right antecubital fossa. (4) High anion gap metabolic acidosis: Resolved. Euglycemic ketoacidosis. Received 2 doses 10 units Lantus. Continue IV hydration for now. Change fluids to LR. Continue sliding scale insulin. Consistent carbohydrate diet. (5) Hypokalemia: Severe hypokalemia this morning. Given replacement. Follow-up level. (6) SRINATH (acute kidney injury): Resolved with fluid challenge. Reassess renal function. Hold ARB. (7) Sinus tachycardia: Suspect secondary to dehydration, DKA, possibly sepsis. PE. (8) Hyperglycemia: Prediabetes or may be developing diabetes, A1c 6.1%. Euglycemic ketoacidosis resolved. Change fluids to LR. Continue sliding scale insulin. Consistent carbohydrate diet. (9) Troponin level elevated: Mild elevation of bili with positive delta. Suspect demand schema secondary sepsis, however, may be unmasking underlying coronary disease. TTE EF 70%, grade 1 diastolic function. No RWMA. Would benefit down the road from further risk stratification with outpatient stress test. Currently on anticoagulation. (10) Compression fracture: Has been complaining of back pain recently, noted L4 compression fracture, 5 mm retropulsion causing severe central canal stenosis. No appearance of hydrocephalus. Does not appear like discitis, or if he has discitis is very early. Consider additional follow-up imaging with contrast CT or MRI. Lidocaine patch. Follow-up with infectious disease. (11) Acquired abnormality of inferior vena cava: 0.9 x 1.3 x 1.5 cm partial filling defect in the posterior distal inferior vena cava, at the L4 level. The other visualized large deep veins appear patent. Appearance of possible thrombus. Discussed risk of bleeding, resume anticoagulation due to central venous thrombosis. (12) Anemia: Hemoglobin improved to 11.6. May be dilutional with rehydration after dehydration on presentation, Check Hemoccult Noted iron deficiency anemia. Will need iron supplementation and further work-up that includes endoscopy to exclude occult malignancy after discharge. No retroperitoneal/psoas hematoma on CT. (13) Prediabetes: Plan HTN: Olmesartan on hold for now due to SRINATH. Dysphagia: Continue dysphagia diet. ST reassessment. Patient reported influenza A positive, has been more than 7 days out. He is currently febrile, but doubt this is continuation of influenza given she had improved. Oxygenation overall appears to have been showing improvement, although still requiring 2 L nasal cannula oxygen currently. D-dimer is elevated, additional evaluation for possibility of PE as above. Discussed with her daughter. Attestations Medical Necessity Statement*: Continue admission for assessment management of sepsis, septic thrombophlebitis, acute encephalopathy additional above comorbidities. 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
[2022-11-03] MEDS: lactated ringers 1,000 ML 75 ML IV ×2 (14:57→23:56)
[2022-11-03 16:24] LABS: Partial Thromboplastin Time 65.8 SECONDS (23.9-36.7)
--- NOTE | 2022-11-03 16:56 | PC.NURSE ---
No change in heparin drip due to PTT.
[2022-11-03 17:14] LABS: Potassium 2.6 mmol/L (3.5-5.1)
[2022-11-03] MEDS: fluconazole premix 400 MG/200 ML PIGGYBACK 200 MG IV (17:18)
[2022-11-03] MEDS: potassium chloride ER 20 mEq Tablet 40 MEQ PO (18:24)
[2022-11-03 21:00] LABS: Glucose Point of Care 110 mg/dL (70-110)
[2022-11-03 21:05] LABS: Vancomycin Trough 4.8 ug/mL (10-15)
--- NOTE | 2022-11-03 21:15 | PC.NURSE ---
Vanc not admined on time due to waiting for vanc trough results. Pharmacy notified at this time of vanc trough result.
[2022-11-03] MEDS: pantoprazole 40 mg SDV IVP (21:47)
[2022-11-03] MEDS: vancomycin 1,250 MG/250 ML PIGGYBACK 250 MG IV (22:59)
[2022-11-04] VITALS (10 sets, daily range): BP systolic 137–155; BP diastolic 71–78; PULSE 72–79; RESP 15–18; TEMP 36.6–36.8; O2SAT 96–100
[2022-11-04 00:12] LABS: Partial Thromboplastin Time 20.9 SECONDS (23.9-36.7)
[2022-11-04] MEDS: heparin 5,000 unit/mL INJ 1 mL IV (01:54)
[2022-11-04 06:47] LABS: Glucose Point of Care 188 mg/dL (70-110)
[2022-11-04 08:10] LABS: Basophils % 0.2 %; Eosinophils % 0.3 %; Hematocrit 41.1 % (37.0-47.0); Hemoglobin 12.7 g/dL (11.5-15.3); Lymphocytes # 1.1 10^3/uL (0.8-4.8); Lymphocytes % 11.8 %; Mean Corpuscular HGB Conc 30.9 g/dL (30.0-36.0); Mean Corpuscular Hemoglobin 23.3 pg (28.0-34.0); Mean Corpuscular Volume 75.6 fl (81-99); Mean Platelet Volume 11.6 fL (7.4-10.4); Monocytes # 0.5 10^3/uL (0.2-0.9); Monocytes % 5.4 %; Neutrophils # 7.76 10^3/uL (1.8-7.7); Neutrophils % 80.6 %; Nucleated Red Blood Cells % 0 %; Platelet Count 262 10^3/cmm (130-400); Red Blood Count 5.44 10^6/uL (4.1-5.3); Red Cell Distribution Width 15.7 % (12.1-15.1); White Blood Count 9.6 10^3/uL (4.0-10.0)
[2022-11-04 08:41] LABS: Partial Thromboplastin Time 170.6 SECONDS (23.9-36.7)
[2022-11-04 09:12] LABS: Alanine Aminotransferase 24 U/L (0-33); Albumin Level 2.7 g/dL (3.5-5.2); Alkaline Phosphatase 52 U/L (35-105); Blood Urea Nitrogen 6 mg/dL (8-23); Calcium 8.9 mg/dL (8.5-10.5); Carbon Dioxide 28 mmol/L (22-29); Chloride 100 mmol/L (98-107); Globulin 3.2 g/dL (1.3-4.6); Glucose 88 mg/dL (65-115); Magnesium 1.6 mg/dL (1.7-2.3); Osmolality Calculated 283 mOsm/kg (285-295); Sodium 138 mmol/L (136-145); Total Bilirubin 0.2 mg/dL (0.15-1.2); Total Protein 5.9 g/dL (6.6-8.7)
[2022-11-04 09:22] LABS: Anion Gap 12.9 (5-19); Aspartate Amino Transferase 19 U/L (0-32); Potassium 2.9 mmol/L (3.5-5.1)
[2022-11-04] MEDS: potassium chloride ER 20 mEq Tablet 40 MEQ PO (10:46)
[2022-11-04] MEDS: amlodipine 10 mg Tablet PO (10:46)
[2022-11-04] MEDS: baclofen 10 mg Tablet PO (10:46)
[2022-11-04] MEDS: vancomycin 1,250 MG/250 ML PIGGYBACK 250 MG IV (10:47)
[2022-11-04] MEDS: atorvastatin 40 mg Tablet PO (10:47)
[2022-11-04 11:11] LABS: Glucose Point of Care 86 mg/dL (70-110)
[2022-11-04] MEDS: cefTRIAXone 2,000 MG in sodium chloride 0.9% (plus) 50 ML 100 MG IV ×2 (12:24→23:19)
[2022-11-04] MEDS: acetaminophen 325 mg Tablet 650 MG PO (12:25)
--- NOTE | 2022-11-04 12:34 | USCV_ITS ---
Mildred Graham Age: 72 Gender: F : 1950 Exam Date: 11/04/2022 13:40 Ordering Phys: Randolph Garibay MD Technologist: Zelalem Ignacio Exam Location: [facility] [place] Indication: lt arm pain and swelling PROCEDURES: Venous duplex imaging was performed in only the left upper extremity. The following venous structures were evaluated: internal jugular vein, subclavian vein, axillary vein, and brachial veins. In addition, the basilic vein, cephalic vein, radial vein, and ulnar vein. FINDINGS: No evidence of deep vein thrombosis or superficial thrombophlebitis in the left upper extremity. CONCLUSIONS No left upper extremity DVT. Dr. Lashay Rose DO (Electronically Signed) Final Date: 04 November 2022 15:06 S
--- NOTE | 2022-11-04 12:35 | PM.PN ---
Subjective Subjective: She states that her left arm tingles when she reaches out for something on the bedside table. She otherwise overall is doing better. Vitals/I&O/Wt Last Vital Signs Temp 98.1 F 11/04/22 11:46 Pulse 75 11/04/22 11:46 Resp 18 11/04/22 11:46 BP 145/76 11/04/22 11:46 Pulse Ox 98 11/04/22 11:46 O2 Del Method 11/04/22 11:46 O2 Flow Rate 2 11/04/22 11:46 11/03/22 11/04/22 11/04/22 22:59 06:59 14:59 Intake Total 320 / 2332.767 1183.70 / 3516.467 360.7 / 360.7 Output Total 950 / 1200 Balance 320 / 2082.767 233.70 / 2316.467 360.7 / 360.7 Weight last 48 hrs Weight 70.851 kg Weight 72.303 kg Physical Exam Narrative: Sister and [id number] at bedside. Const: COMMON NORMALS: patient oriented x3 and alert GENERAL APPEARANCE: cooperative ORIENTATION/CONSCIOUSNESS: Yes awake; not confused Neck/C-Spine: COMMON NORMALS: no JVD Resp: COMMON NORMALS: normal respiratory effort and clear to auscultation bilaterally AUSCULTATION: clear to auscultation bilaterally Cardio: COMMON NORMALS: no JVD, regular rhythm, S1 normal heart sound present, S2 normal heart sound present and No murmurs present (Cardio) RHYTHM: regular rhythm HEART SOUNDS: S1 normal heart sound present and S2 normal heart sound present GI: COMMON NORMALS: Normal to inspection, nondistended, normoactive bowel sounds present, Soft to palpation and non-tender PALPATION: Yes Soft to palpation Extremity: COMMON NORMALS: no joint enlargement and no pedal edema Neuro: COMMON NORMALS: patient oriented x3 and moves all extremities SENSORIUM/ORIENTATION: Yes alert Skin: COMMON NORMALS: no rashes or lesions noted GENERAL SKIN EXAM: no rashes or lesions noted Urinary Catheter Management: Sanders: Cath Placed During This Visit: yes Reason for Continuing Indwelling Catheter: Accurate Measurement of Urinary Output in Critically Ill Patients Urinary Catheter Date of Insertion: 11/01/22 Urinary Catheter Time of Insertion: 00:33 Data 11/04/22 07:59 11/04/22 08:46 Micro: Microbiology 11/03/22 15:50 Blood Culture - Preliminary Blood SPECIMEN COLLECTED 11/03/22 15:54 Blood Culture - Preliminary Blood SPECIMEN COLLECTED 10/31/22 17:32 Blood Culture - Final Blood Group g streptococcus 10/31/22 17:26 Blood Culture - Final Blood Group g streptococcus A&P Assessment and plan (1) Sepsis: And she would benefit from anticoagulation, discussed with her risk of bleeding, especially in case of endocarditis which we would want to exclude. Appreciate additional cardiology assessment with regards to PAT. Otherwise currently awaiting repeat cultures confirm clearance of bacteremia. Continue empiric antibiotic coverage with ceftriaxone, vancomycin. Follow-up blood culture ID and sensitivities. Group g strep on gram stain. Septic thrombophlebitis, probably less likely although could not entirely exclude possible bacterial meningitis. L4 compression fracture appears uncomplicated, lower likelihood but not entirely excluded is early discitis but again early discitis cannot be 100% excluded. Discussed also presence of the thrombus in IVC again as well as again considering anticoagulation and its benefits and risks and her condition. Withhold sertraline so as not to increase bleeding risk. Prolonged antibiotic course is anticipated with duration of at least 6 weeks, likely with ceftriaxone 1 g daily follow-up repeat blood cultures for clearance before insertion of PICC line. Repeat blood culture today. Appreciated results of head CT, right ankle CT. CT abdomen pelvis obtained as well, incidentally noted prominent atherosclerotic vascular changes, again noted compression fracture, but no other localized findings that may suggest other focus of infection. Leukocytosis now resolved. So far today without recurrence of fever. Sepsis resolving. Persistent confusion, recurrent low-grade fever on admission. On presentation leukocytosis 30,000. Bacteremia with 2/4 bottles gram-positive cocci reported on blood culture. Unclear if this may be contaminant, culture repeated. In case of your bacteremia source unclear. Did have hospitalization recently. No port or PICC line. In terms of foreign bodies had right ankle fracture in the past and has some hardware there. Imaged with CT, no appearance of infection around the hardware or loose hardware. Does appear to have swelling and bruising of the right antecubital fossa with superficial thrombophlebitis. Has been complaining of back pain recently, noted L4 compression fracture, 5 mm retropulsion causing severe central canal stenosis. No appearance of hydrocephalus. Does not appear like discitis, or if he has discitis is very early. Follow-up with infectious disease. Chest x-ray not suggestive of bacterial pneumonia. UA otherwise unremarkable no report of GI symptoms. No diarrhea. (2) Acute encephalopathy: Encephalopathy now appears largely resolved with resolving sepsis. Suspected acute encephalopathy secondary to severe sepsis, probably less likely although could not entirely exclude possible bacterial meningitis. Group B strep bacteremia noted. Suspected septic thrombophlebitis. No intracardiac shunt TTE bubble study. Unlikely Tamiflu induced encephalopathy and delirium. She is done with Tamiflu. Less likely encephalopathy secondary to steroid, possible, she will be done with prednisone now. Hold sertraline. PT, OT assessment. (3) Elevated d-dimer: PE, IVC defect concerning for localized thrombus. On anticoagulation with heparin drip. Also noted superficial thrombophlebitis cephalic vein and right antecubital fossa. (4) High anion gap metabolic acidosis: Resolved. Euglycemic ketoacidosis. Received 2 doses 10 units Lantus. Stop IVF. Continue sliding scale insulin. Consistent carbohydrate diet. (5) Hypokalemia: Replace potassium and magnesium. Follow-up level. (6) SRINATH (acute kidney injury): Resolved with fluid challenge. DC IVF. Reassess renal function. Hold ARB. (7) Sinus tachycardia: Resolved. Suspect secondary to dehydration, DKA, possibly sepsis. PE. (8) Hyperglycemia: Prediabetes or may be developing diabetes, A1c 6.1%. Euglycemic ketoacidosis resolved. Stop LR. Continue sliding scale insulin. Consistent carbohydrate diet. (9) Troponin level elevated: Mild elevation of bili with positive delta. Suspect demand schema secondary sepsis, however, may be unmasking underlying coronary disease. TTE EF 70%, grade 1 diastolic function. No RWMA. Would benefit down the road from further risk stratification with outpatient stress test. Currently on anticoagulation. (10) Compression fracture: Has been complaining of back pain recently, noted L4 compression fracture, 5 mm retropulsion causing severe central canal stenosis. No appearance of hydrocephalus. Does not appear like discitis, or if he has discitis is very early. Consider additional follow-up imaging with contrast CT or MRI. Lidocaine patch. Follow-up with infectious disease. (11) Acquired abnormality of inferior vena cava: 0.9 x 1.3 x 1.5 cm partial filling defect in the posterior distal inferior vena cava, at the L4 level. The other visualized large deep veins appear patent. Appearance of possible thrombus. Discussed risk of bleeding, resume anticoagulation due to central venous thrombosis. (12) Anemia: Hemoglobin improved to 12.7. May have been dilutional with rehydration after dehydration on presentation, Check Hemoccult Noted iron deficiency anemia. Will need iron supplementation and further work-up that includes endoscopy to exclude occult malignancy after discharge. No retroperitoneal/psoas hematoma on CT. (13) Prediabetes: Plan Left arm paresthesia: We will trend duplex ultrasound. HTN: Olmesartan on hold for now due to SRINATH. Dysphagia: Continue dysphagia diet. ST reassessment. Reported influenza A during prior hospitalization. Can discontinue isolation. Attestations Medical Necessity Statement*: Continue to inform assessment of management of septic phlebitis, assessment for endocarditis, reassessment for clearance of bacteremia, post discharge antibiotic therapy planning and arrangements. Coding Level of Care Code Acute First Aid Attendant for g Fwd Diagnoses Sepsis A41.9 Acute encephalopathy G93.40 Elevated d-dimer R79.89 High anion gap metabolic acidosis E87.29 Hypokalemia E87.6 SRINATH (acute kidney injury) N17.9 Sinus tachycardia R00.0 Hyperglycemia R73.9 Troponin level elevated R77.8 Compression fracture Acquired abnormality of inferior vena cava I87.9 Anemia D64.9 Prediabetes R73.03
[2022-11-04] MEDS: magnesium sulfate premix 2 GM/50 ML PIGGYBACK IV (13:44)
--- NOTE | 2022-11-04 14:45 | P.CONIM_ITS ---
Providers/Reason For Consult Consulting Physician/Specialty*: Dr. Serra, Cardiology Reason for Consult*: Group g strptococcal sepsis Attending Physician: Randolph Garibay Primary Care Provider: Melanie Joyce NP History of Present Illness History of Present Illness Mildred Graham is a 72 year old female with past history of hypertension, HLD and COPD.? She was hospitalized with exacerbation of COPD, worsening shortness of breath.? CT angiogram during that hospitalization showed no sign of a pulmonary embolus and no pulmonary infiltrates.? She was hypoxic and when she was discha rged on 10/28 she was on 6 L of oxygen.? She was discharged on prednisone 40 mg a day for 5 days, Pulmicort and oseltamivir for flu+.? She returned with confusion and shortness of breath.? Chest CTA repeated showed small pulmonary emboli in the left upper lobe.? CT of the lumbar spine showed partial DVT in the distal inferior vena cava at the L4 level and acute moderate compression fracture of superior L4 with severe central canal stenosis with L4 5 mm retropulsion.? Severe central canal stenosis at L4-5.? 3 out of 4 bottles of blood cultures are showing Group g strep. Follow up blood cx negative so far. Encephalopathy has resolved. No temp spikes. Remains on abx and antifungals per primary team. Finished course of Tamiflu. I have been asked to assess her for PAT to determine the course of abx She c/o diarrhea, no chest pain/SOB. No bleeding, no constipation. No difficulty swallowing. No upper GI sx. Review of Systems General: Reports: 10 or more systems reviewed and unremarkable except in HPI and below Medications/Allergies Home Medications Medication Instructions Recorded Confirmed Last Taken Type albuterol sulfate 2.5 mg/3 mL 2.5 mg (3 mL) inhalation Q4H PRN 03/13/20 11/01/22 10/24/22 Rx (0.083 %) solution for nebulization shortness of breath or wheezing #180 mL aspirin 81 mg tablet,delayed 81 mg PO EVERY OTHER DAY 03/13/20 11/01/22 10/24/22 History release (Adult Aspirin Regimen) acetaminophen 650 mg 650 mg PO Q12H 05/26/20 11/01/22 10/24/22 History tablet,extended release (Arthritis Pain Relief (acetaminophen) ER) omeprazole 20 mg capsule,delayed 20 mg PO DAILY #90 caps 01/13/22 11/01/22 10/24/22 Rx release calcium carbonate 600 mg-vitamin 1 cap PO DAILY 04/02/22 11/01/22 10/24/22 History D3 12.5 mcg (500 unit) capsule (Calcium 600 with Vitamin D3) amlodipine 10 mg tablet 10 mg PO DAILY 10/25/22 11/01/22 10/24/22 History olmesartan 5 mg tablet 5 mg PO DAILY 10/25/22 11/01/22 10/24/22 History pravastatin 40 mg tablet 40 mg PO DAILY 10/25/22 11/01/22 10/24/22 History sertraline 100 mg tablet 100 mg PO BEDTIME 10/25/22 11/01/22 10/24/22 History budesonide 180 mcg/actuation 1 inh inhalation BID 30 days #1 ea 10/28/22 11/01/22 Unknown Rx breath activated powder inhaler (Pulmicort Flexhaler) prednisone 20 mg tablet 40 mg PO DAILY 5 days #5 tabs 10/28/22 11/01/22 Unknown Rx albuterol sulfate 90 mcg/actuation 2 puff inhalation Q4H PRN 11/01/22 11/01/22 Unknown History aerosol inhaler Shortness Of Breath Or Wheezing Allergies Allergy/AdvReac Type Severity Reaction Status Date / Time Sulfa (Sulfonamide Allergy ALGY-Rash Verified 11/01/22 08:58 Antibiotics) Current Medications Generic Name Dose Route Start Last Admin Trade Name Freq PRN Reason Stop Dose Admin Acetaminophen 650 mg 10/31/22 21:10 11/03/22 09:41 Acetaminophen 325 Mg Tablet PO 650 mg Q6H PRN Administration Mild/Mod Pain Or Temp >/= 101 Acetaminophen 650 mg 11/03/22 12:00 11/04/22 12:25 Acetaminophen 325 Mg Tablet PO 650 mg Q12H MILAGROS Administration Amlodipine Besylate 10 mg 11/02/22 09:00 11/04/22 10:46 Amlodipine 10 Mg Tablet PO 10 mg DAILY MILAGROS Administration Atorvastatin Calcium 40 mg 11/04/22 09:00 11/04/22 10:47 Atorvastatin 40 Mg Tablet PO 40 mg DAILY MILAGROS Administration Baclofen 10 mg 11/04/22 10:20 11/04/22 10:46 Baclofen 10 Mg Tablet PO 10 mg QID PRN Administration MUSCLE SPASMS Heparin Sodium (Porcine) 0 unit 11/01/22 19:07 11/04/22 01:54 Heparin 5,000 Unit/Ml Inj 1 Ml IV 3,600 unit PRN PRN Administration Heparin weight-base protocol Protocol Ceftriaxone Sodium 2,000 mg/ 50 mls @ 100 mls/hr 11/01/22 11:30 11/04/22 12:24 Sodium Chloride IV 100 mls/hr Q12H MILAGROS Administration Protocol Fluconazole 400 mg in 200 mls @ 200 mls/hr 11/02/22 18:00 11/03/22 18:19 Diflucan Premix IV Infused Q24H MILAGROS Infusion Heparin Sodium/Sodium Chloride 25,000 unit in 500 mls @ 0 mls/hr 11/01/22 19:15 11/04/22 10:24 Heparin Drip IV 9.75 unit/kg/hr .Q0M MILAGROS 14 mls/hr Titration Protocol Per Protocol Vancomycin/PEG/NADA/Lysine/Water 1,250 mg in 250 mls @ 250 mls/hr 11/03/22 22:30 11/04/22 10:47 Vancocin IV 250 mls/hr Q12H MILAGROS Administration Lidocaine 1 patch 11/01/22 13:00 11/04/22 13:54 Lidocaine 5% Patch TOPICAL Not Given [id number] MILAGROS Lorazepam 0.5 mg 11/02/22 10:18 11/02/22 11:40 Lorazepam 2 Mg/Ml Inj 1 Ml IVP 0.5 mg ONCE PRN Administration ANXIETY Pantoprazole Sodium 40 mg 10/31/22 21:10 11/03/22 21:47 Pantoprazole 40 Mg Sdv IVP 40 mg Q24H MILAGROS Administration PFSH Acute PFSH: Medical History COPD (chronic obstructive pulmonary disease) Depression GERD (gastroesophageal reflux disease) 1 para 1 Hyperlipidemia Hypertension Osteoporosis Post-traumatic arthritis of right ankle Stress incontinence in female Vitamin D deficiency Surgical History History of cataract surgery bialteral History of elbow surgery left, due to nerve entrapment History of tubal ligation Status post open reduction and internal fixation (ORIF) of fracture (12/2020) Dr. Lao; right pilon fracture, right fibular fracture Family History Father Cancer Type of cancer not known (unknown primary), but was in the lungs Mother , age 54 from respiratory disease, COPD, heavy smoker Lung disease Other Diabetes Social History Smoking and tobacco status: former smoker Alcohol intake: current Alcohol intake frequency: holidays/special occasions only Lives independently: Yes Household members: none Vitals/I&O/Wt Last Vital Signs Temp 98.1 F 11/04/22 11:46 Pulse 75 11/04/22 11:46 Resp 18 11/04/22 11:46 BP 145/76 11/04/22 11:46 Pulse Ox 98 11/04/22 11:46 O2 Del Method 11/04/22 11:46 O2 Flow Rate 2 11/04/22 11:46 11/03/22 11/04/22 11/04/22 22:59 06:59 14:59 Intake Total 320 / 2332.767 1183.70 / 3516.467 480.7 / 480.7 Output Total 950 / 1200 Balance 320 / 2082.767 233.70 / 2316.467 480.7 / 480.7 Weight last 48 hrs Weight 156 lb 3.2 oz Weight 159 lb 6.4 oz Physical Exam Narrative: Gen: sitting comfortable in chair, NAD HEENT/Neck: No JVD, no pallor or icterus RS: CTAB/L, No wheezes or rales CVS: S1, S2 regular, No murmur, rub or gallop PA: soft, NTND, BS 2+ SUSTAINABILITY MANAGER: awake, alert, oriented x 3, No FND Ext: No edema, cyanosis or clubbing Urinary Catheter Management: Sanders: Cath Placed During This Visit: yes Reason for Continuing Indwelling Catheter: Accurate Measurement of Urinary Output in Critically Ill Patients Urinary Catheter Date of Insertion: 11/01/22 Urinary Catheter Time of Insertion: 00:33 Data 11/04/22 07:59 11/04/22 08:46 Micro: Microbiology 11/03/22 15:50 Blood Culture - Preliminary Blood SPECIMEN COLLECTED 11/03/22 15:54 Blood Culture - Preliminary Blood SPECIMEN COLLECTED 10/31/22 17:32 Blood Culture - Final Blood Group g streptococcus 10/31/22 17:26 Blood Culture - Final Blood Group g streptococcus A&P Assessment and plan (1) Sepsis: Group G strep sepsis -No vegetation noted on TTE. -Blood cx have been negative since initial cx 01/29 growing Group G strep -At, this time not very high suspicion for IE; will proceed with PAT per the request of primary team -Risks and benefits were discussed with the patients. Alternate management options were discussed with the patient as well. Possible complications including [id number] risk of oesophageal perforation discussed with patient. Plan is to proceed for the procedure at the earliest. (2) Acute deep vein thrombosis (DVT) of inferior vena cava: Plan Small PE Encephalopathy : resolved HTN GERD Dyslipidemia Hypokalemia Recent Flu Hypokalemia: replaced Consult Attestations Medical Necessity Statement: As per primary team Time Spent in Patient Care: Greater than 35 minutes Coding Level of Care Code Acute Junior Loan Processor for Chg Fwd Diagnoses Sepsis A41.9 Acute deep vein thrombosis (DVT) of inferior vena cava I82.220
[2022-11-04 17:14] LABS: Glucose Point of Care 99 mg/dL (70-110)
[2022-11-04 17:16] LABS: Partial Thromboplastin Time 65.8 SECONDS (23.9-36.7)
[2022-11-04] MEDS: lidocaine 1% 5 ML in potassium chloride premix 100 ML 50 ML IV (18:21)
[2022-11-04] MEDS: fluconazole premix 400 MG/200 ML PIGGYBACK 200 MG IV (21:16)
[2022-11-04 21:20] LABS: Glucose Point of Care 158 mg/dL (70-110)
[2022-11-04] MEDS: pantoprazole 40 mg SDV IVP (21:29)
[2022-11-04 22:40] LABS: Vancomycin Trough 15.9 ug/mL (10-15)
[2022-11-04] MEDS: heparin drip 25,000 UNIT/500 ML PREMIX 14 UNIT IV (23:24)
[2022-11-05] VITALS (14 sets, daily range): BP systolic 112–156; BP diastolic 50–74; PULSE 68–91; RESP 14–18; TEMP 36.4–37.1; O2SAT 77–100
[2022-11-05] MEDS: vancomycin 1,000 MG in sodium chloride 0.9% 250 ML 250 MG IV ×2 (00:02→12:09)
[2022-11-05] MEDS: acetaminophen 325 mg Tablet 650 MG PO ×3 (00:58→23:11)
[2022-11-05 04:40] LABS: Basophils % 0.2 %; Eosinophils # 0.1 10^3/uL (0.0-0.8); Eosinophils % 0.9 %; Hematocrit 36.6 % (37.0-47.0); Hemoglobin 11.2 g/dL (11.5-15.3); Lymphocytes # 1.6 10^3/uL (0.8-4.8); Lymphocytes % 14.7 %; Mean Corpuscular HGB Conc 30.6 g/dL (30.0-36.0); Mean Corpuscular Hemoglobin 23.2 pg (28.0-34.0); Mean Corpuscular Volume 75.9 fl (81-99); Mean Platelet Volume 11.7 fL (7.4-10.4); Monocytes # 0.6 10^3/uL (0.2-0.9); Monocytes % 5.6 %; Neutrophils # 8.47 10^3/uL (1.8-7.7); Neutrophils % 76.8 %; Nucleated Red Blood Cells % 0 %; Platelet Count 269 10^3/cmm (130-400); Red Blood Count 4.82 10^6/uL (4.1-5.3); Red Cell Distribution Width 15.9 % (12.1-15.1)
[2022-11-05 04:52] LABS: Partial Thromboplastin Time 69.9 SECONDS (23.9-36.7)
[2022-11-05 05:00] LABS: Alanine Aminotransferase 21 U/L (0-33); Albumin Level 2.7 g/dL (3.5-5.2); Alkaline Phosphatase 49 U/L (35-105); Anion Gap 11.6 (5-19); Aspartate Amino Transferase 15 U/L (0-32); Blood Urea Nitrogen 6 mg/dL (8-23); Calcium 8.6 mg/dL (8.5-10.5); Carbon Dioxide 31 mmol/L (22-29); Chloride 98 mmol/L (98-107); Globulin 2.8 g/dL (1.3-4.6); Glucose 99 mg/dL (65-115); Magnesium 1.8 mg/dL (1.7-2.3); Osmolality Calculated 284 mOsm/kg (285-295); Sodium 138 mmol/L (136-145); Total Bilirubin 0.2 mg/dL (0.15-1.2); Total Protein 5.5 g/dL (6.6-8.7)
[2022-11-05 05:44] LABS: Potassium 2.6 mmol/L (3.5-5.1)
[2022-11-05 06:34] LABS: Glucose Point of Care 114 mg/dL (70-110)
[2022-11-05] MEDS: potassium chloride ER 20 mEq Tablet 40 MEQ PO ×2 (07:59→12:10)
[2022-11-05] MEDS: baclofen 10 mg Tablet PO (07:59)
[2022-11-05] MEDS: atorvastatin 40 mg Tablet PO (07:59)
[2022-11-05] MEDS: amlodipine 10 mg Tablet PO (07:59)
[2022-11-05] MEDS: lidocaine 1% 5 ML in potassium chloride premix 100 ML 25 ML IV (07:59)
[2022-11-05] MEDS: lidocaine 5% Patch 1 PATCH TOPICAL ×2 (08:00→20:54)
[2022-11-05 11:01] LABS: Partial Thromboplastin Time 64.5 SECONDS (23.9-36.7)
[2022-11-05] MEDS: cefTRIAXone 2,000 MG in sodium chloride 0.9% (plus) 50 ML 100 MG IV ×2 (11:35→23:10)
[2022-11-05 12:01] LABS: Glucose Point of Care 75 mg/dL (70-110)
--- NOTE | 2022-11-05 13:00 | USCV_ITS ---
Mildred Graham Age: 72 Gender: F : 1950 Exam Date: 11/05/2022 13:50 Ordering Phys: Emily Serra MD ([email or web address]) Technologist: ERNESTO Exam Location: [facility] – [place] Indication: BACTEREMIA BP: 145 / 70 HR: Rhythm: Sinus Technical Quality: Good MEASUREMENTS (Male / Female) Normal Values Medications Patient given IV sedation by anesthesia service, for details please refer to the anesthesia report. Complications Intubation easy. Attempts x 2; No blood on probe post procedure. Patient tolerated procedure well. Proc. Components FINDINGS Left Ventricle Normal left ventricular size, systolic function and wall thickness, with no regional wall motion abnormalities. Left ventricular ejection fraction is estimated at 65 %. Right Ventricle Normal right ventricular size and systolic function. Right Atrium Normal right atrial size. Left Atrium Normal left atrial size. LA Appendage Normal left atrial appendage. No thrombus visualized in the left atrial appendage. IA Septum Normal interatrial septum. No patent foramen ovale or ASD. Mitral Valve Structurally normal mitral valve. No mitral valve stenosis. Mild mitral valve regurgitation. Aortic Valve Structurally normal trileaflet aortic valve. No aortic valve stenosis. No aortic valve regurgitation. Tricuspid Valve Structurally normal tricuspid valve. Trace tricuspid valve regurgitation. Pulmonic Valve Structurally normal pulmonic valve. No pulmonary valve stenosis. Trace pulmonary valve regurgitation. Pericardium No pericardial effusion. Aorta Normal size aortic root and proximal ascending aorta. No aortic dilation, aneurysm or dissection. Grade III atheroma noted in proximal descending aorta and aortic arch. CONCLUSIONS 1. Normal left ventricular size, systolic function and wall thickness, with no regional wall motion abnormalities. Left ventricular ejection fraction is estimated at 65 %. 2. No evidence of vegetation based on this study. 3. Mild mitral valve regurgitation. 4. Grade III atheroma noted in proximal descending aorta and aortic arch. Emily Serra MD (Electronically Signed) Final Date: 06 November 2022 17:46 S
[2022-11-05 13:08] LABS: Blood Urea Nitrogen 7 mg/dL (8-23); Calcium 8.7 mg/dL (8.5-10.5); Carbon Dioxide 25 mmol/L (22-29); Chloride 102 mmol/L (98-107); Glucose 86 mg/dL (65-115); Osmolality Calculated 283 mOsm/kg (285-295); Sodium 138 mmol/L (136-145)
[2022-11-05 13:09] LABS: Anion Gap 14.8 (5-19); Potassium 3.8 mmol/L (3.5-5.1)
--- NOTE | 2022-11-05 13:39 | ANES.PREANE2 ---
Pre-Anesthetic Assessment Height/Weight: Height 1.6 m Weight 73.227 kg Temp Pulse Resp BP Pulse Ox O2 Del Method O2 Flow Rate 97.7 F 91 17 148/71 94 3 11/05/22 11:16 11/05/22 11:16 11/05/22 11:16 11/05/22 11:16 11/05/22 11:16 11/05/22 08:08 11/05/22 08:08 Preop Diagnosis: Right pilon fracture, right fibular fracture. Operation Date: 11/05/22 13:00 Proposed Procedures p PAT(Not Applicable) - Emily Serra MD Familial anesthetic complications: none Was Beta Jose Angel taken within 24 hours: N/A Was Clonidine taken within 24 hours: N/A Last Intake: 22:00 Social Alcohol (beer daily) and Tobacco stop 2008. 2ppd pack(s) per day Exam alert, oriented x 3, clear to auscultation bilaterally and regular rate & rhythm Airway Submandibular: within normal limits Cervical ROM: within normal limits Mallampati: Class II Dentition: false Pulmonary Chronic Obstructive Pulmonary Disease, Cough, Exertional Dyspnea and Shortness of Breath CV/HEM Hypertension inferior vena cava clot Chronic Renal Insufficiency Hepatic None reported GI None reported Metabolic Diabetes Mellitus (diet controlled) [facility] Lower Back Pain Neuropsych Anxiety and Depression Pt with admission DX if Sepsis and acute encephalopathy Anesthetic Plan ASA status: 4 Anesthesia: MAC Medications/Allergies Home Medications Medication Instructions Recorded Confirmed Last Taken Type albuterol sulfate 2.5 mg/3 mL 2.5 mg (3 mL) inhalation Q4H PRN 03/13/20 11/01/22 10/24/22 Rx (0.083 %) solution for nebulization shortness of breath or wheezing #180 mL aspirin 81 mg tablet,delayed 81 mg PO EVERY OTHER DAY 03/13/20 11/01/22 10/24/22 History release (Adult Aspirin Regimen) acetaminophen 650 mg 650 mg PO Q12H 05/26/20 11/01/22 10/24/22 History tablet,extended release (Arthritis Pain Relief (acetaminophen) ER) omeprazole 20 mg capsule,delayed 20 mg PO DAILY #90 caps 01/13/22 11/01/22 10/24/22 Rx release calcium carbonate 600 mg-vitamin 1 cap PO DAILY 04/02/22 11/01/22 10/24/22 History D3 12.5 mcg (500 unit) capsule (Calcium 600 with Vitamin D3) amlodipine 10 mg tablet 10 mg PO DAILY 10/25/22 11/01/22 10/24/22 History olmesartan 5 mg tablet 5 mg PO DAILY 10/25/22 11/01/22 10/24/22 History pravastatin 40 mg tablet 40 mg PO DAILY 10/25/22 11/01/22 10/24/22 History sertraline 100 mg tablet 100 mg PO BEDTIME 10/25/22 11/01/22 10/24/22 History budesonide 180 mcg/actuation 1 inh inhalation BID 30 days #1 ea 10/28/22 11/01/22 Unknown Rx breath activated powder inhaler (Pulmicort Flexhaler) prednisone 20 mg tablet 40 mg PO DAILY 5 days #5 tabs 10/28/22 11/01/22 Unknown Rx albuterol sulfate 90 mcg/actuation 2 puff inhalation Q4H PRN 11/01/22 11/01/22 Unknown History aerosol inhaler Shortness Of Breath Or Wheezing Allergies Allergy/AdvReac Type Severity Reaction Status Date / Time Sulfa (Sulfonamide Allergy ALGY-Rash Verified 11/01/22 08:58 Antibiotics) Current Medications Generic Name Dose Route Start Last Admin Trade Name Freq PRN Reason Stop Dose Admin Acetaminophen 650 mg 10/31/22 21:10 11/03/22 09:41 Acetaminophen 325 Mg Tablet PO 650 mg Q6H PRN Administration Mild/Mod Pain Or Temp >/= 101 Acetaminophen 650 mg 11/03/22 12:00 11/05/22 12:09 Acetaminophen 325 Mg Tablet PO 650 mg Q12H MILAGROS Administration Amlodipine Besylate 10 mg 11/02/22 09:00 11/05/22 07:59 Amlodipine 10 Mg Tablet PO 10 mg DAILY MILAGROS Administration Atorvastatin Calcium 40 mg 11/04/22 09:00 11/05/22 07:59 Atorvastatin 40 Mg Tablet PO 40 mg DAILY MILAGROS Administration Baclofen 10 mg 11/04/22 10:20 11/05/22 07:59 Baclofen 10 Mg Tablet PO 10 mg QID PRN Administration MUSCLE SPASMS Heparin Sodium (Porcine) 0 unit 11/01/22 19:07 11/04/22 01:54 Heparin 5,000 Unit/Ml Inj 1 Ml IV 3,600 unit PRN PRN Administration Heparin weight-base protocol Protocol Ceftriaxone Sodium 2,000 mg/ 50 mls @ 100 mls/hr 11/01/22 11:30 11/05/22 12:06 Sodium Chloride IV Infused Q12H MILAGROS Infusion Protocol Fluconazole 400 mg in 200 mls @ 200 mls/hr 11/02/22 18:00 11/04/22 22:39 Diflucan Premix IV Infused Q24H MILAGROS Infusion Heparin Sodium/Sodium Chloride 25,000 unit in 500 mls @ 0 mls/hr 11/01/22 19:15 11/04/22 23:24 Heparin Drip IV 9.75 unit/kg/hr .Q0M MILAGROS 14 mls/hr Administration Protocol Per Protocol Vancomycin HCl 1,000 mg/ 250 mls @ 250 mls/hr 11/04/22 23:30 11/05/22 13:09 Sodium Chloride IV Infused Q12H MILAGROS Infusion Lidocaine 1 patch 11/01/22 13:00 11/05/22 08:00 Lidocaine 5% Patch TOPICAL 1 patch [id number] MILAGROS Administration Lorazepam 0.5 mg 11/02/22 10:18 11/02/22 11:40 Lorazepam 2 Mg/Ml Inj 1 Ml IVP 0.5 mg ONCE PRN Administration ANXIETY Pantoprazole Sodium 40 mg 10/31/22 21:10 11/04/22 21:29 Pantoprazole 40 Mg Sdv IVP 40 mg Q24H MILAGROS Administration PFSH Anesthesia Medical History COPD (chronic obstructive pulmonary disease) Depression GERD (gastroesophageal reflux disease) 1 para 1 Hyperlipidemia Hypertension Osteoporosis Post-traumatic arthritis of right ankle Stress incontinence in female Vitamin D deficiency Surgical History History of cataract surgery bialteral History of elbow surgery left, due to nerve entrapment History of tubal ligation Status post open reduction and internal fixation (ORIF) of fracture (12/2020) Dr. Lao; right pilon fracture, right fibular fracture Family History Father Cancer Type of cancer not known (unknown primary), but was in the lungs Mother , age 54 from respiratory disease, COPD, heavy smoker Lung disease Other Diabetes Social History Smoking and tobacco status: former smoker Alcohol intake: current Alcohol intake frequency: holidays/special occasions only Lives independently: Yes Household members: none Data Anesthesia 11/05/22 04:29 11/05/22 12:42 Short CBC 11/04/22 11/05/22 Range/Units 07:59 04:29 WBC 9.6 11.0 H (4.0-10.0) 10^3/uL Hgb 12.7 11.2 L (11.5-15.3) g/dL Hct 41.1 36.6 L (37.0-47.0) % MCV 75.6 L 75.9 L (81-99) fl Plt Count 262 269 (130-400) 10^3/cmm Neut % (Auto) 80.6 76.8 % Neut # (Auto) 7.76 H 8.47 H (1.8-7.7) 10^3/uL BMP 11/03/22 11/04/22 11/04/22 15:50 07:59 08:46 Sodium Cancelled 138 Potassium 2.6 L* Cancelled 2.9 L Chloride Cancelled 100 Carbon Dioxide Cancelled 28 BUN Cancelled 6 L Creatinine Cancelled 0.4 L Glucose Cancelled 88 Calcium Cancelled 8.9 11/05/22 11/05/22 04:29 12:42 Sodium 138 138 Potassium 2.6 L* 3.8 Chloride 98 102 Carbon Dioxide 31 H 25 BUN 6 L 7 L Creatinine 0.5 0.5 Glucose 99 86 Calcium 8.6 8.7 Liver Function 11/04/22 11/04/22 11/05/22 Range/Units 07:59 08:46 04:29 Total Bilirubin Cancelled 0.2 0.2 AST Cancelled 19 15 ALT Cancelled 24 21 Alkaline Phosphatase Cancelled 52 49 Albumin Cancelled 2.7 L 2.7 L Coags 11/03/22 11/03/22 11/04/22 15:50 23:52 07:59 APTT 65.8 H 20.9 L D 170.6 H* D 11/04/22 11/05/22 11/05/22 16:36 04:29 10:40 APTT 65.8 H D 69.9 H 64.5 H Microbiology 11/03/22 15:54 Blood Culture - Preliminary Blood NEGATIVE TO DATE 11/03/22 15:50 Blood Culture - Preliminary Blood NEGATIVE TO DATE Cardiac Studies: Echocardiogram 11/02/22
[2022-11-05] MEDS: sodium chloride 0.9% 1,000 ML 30 ML IV (13:45)
--- NOTE | 2022-11-05 14:24 | P.PN_ITS ---
Subjective Subjective: She is due for PAT today Medications: Reviewed: Yes Vitals/I&O/Wt Last Vital Signs Temp 97.7 F 11/05/22 13:39 Pulse 88 11/05/22 13:39 Resp 18 11/05/22 13:39 BP 152/71 11/05/22 13:39 Pulse Ox 100 11/05/22 13:39 O2 Del Method 11/05/22 13:39 O2 Flow Rate 6 11/05/22 13:39 11/04/22 11/05/22 11/05/22 22:59 06:59 14:59 Intake Total 2049.95 / 2530.65 300 / 2830.65 805 / 805 Output Total 1000 / 1000 1100 / 2100 300 / 300 Balance 1049.95 / 1530.65 -800 / 730.65 505 / 505 Weight last 48 hrs Weight 161 lb 7 oz Weight 156 lb 3.2 oz Physical Exam Narrative: Gen: sitting comfortable in chair, NAD HEENT/Neck: No JVD, no pallor or icterus RS: CTAB/L, No wheezes or rales CVS: S1, S2 regular, No murmur, rub or gallop PA: soft, NTND, BS 2+ [employer]: awake, alert, oriented x 3, No FND Ext: No edema, cyanosis or clubbing Urinary Catheter Management: Sanders: Cath Placed During This Visit: yes Reason for Continuing Indwelling Catheter: Other Urinary Catheter Date of Insertion: 11/01/22 Urinary Catheter Time of Insertion: 00:33 Data 11/05/22 04:29 11/05/22 12:42 Micro: Microbiology 11/03/22 15:54 Blood Culture - Preliminary Blood NEGATIVE TO DATE 11/03/22 15:50 Blood Culture - Preliminary Blood NEGATIVE TO DATE A&P Assessment and plan (1) Sepsis: Group G strep sepsis -No vegetation noted on TTE. -Blood cx have been negative since initial cx 3/ growing Group G strep -At, this time not very high suspicion for IE; will proceed with PAT per the request of primary team -Risks and benefits were discussed with the patients. Alternate management options were discussed with the patient as well. Possible complications in cluding [id number] risk of oesophageal perforation discussed with patient. Plan is to proceed for the procedure at the earliest. No vegetations noted. I will sign off. (2) Acute deep vein thrombosis (DVT) of inferior vena cava: Plan Small PE Encephalopathy : resolved HTN GERD Dyslipidemia Hypokalemia Recent Flu Hypokalemia: replaced Attestations Medical Necessity Statement*: As per primary team Time Spent in Patient Care: Greater than 35 minutes Procedures Time out/Consent Time Out Performed: Yes Consent for Procedure: Consent obtained from patient, Risks & Benefits reviewed and Agrees to proceed with procedure Procedure Narrative My PAT Indication: r/o endocarditis; Group G streptococcal infection Prelim report: Normal LV size and function. No evidence of vegetations. Full report to follow. Coding Level of Care Code Acute Line Rider for [facility] Fwd Diagnoses Sepsis A41.9 Acute deep vein thrombosis (DVT) of inferior vena cava I82.220
--- NOTE | 2022-11-05 15:06 | PC.SOCIAL ---
IMM Updated Updated pt on IMM. No questions voiced. Provided pt a copy. Initialed, dated, & timed copy in chart.
--- NOTE | 2022-11-05 15:33 | ANE.PACU2 ---
Inpatient post-anesthesia follow up: Airway intact: Yes Vital signs: Temperature 97.6 F Pulse Rate 80 Respiratory Rate 18 Blood Pressure 112/59 Pulse Oximetry 96 Oxygen Delivery Me thod [ Oxymask Current Rate & Del dung] Oxygen Delivery Me thod Nasal Cannula Oxygen Flow Rate [ Current Rate 5 & Delivery] Oxygen Flow Rate 3 Fraction of Inspir ed Oxygen Hydration adequate: Yes Nausea and vomiting: No Pain level: 1 Mental status: Baseline
[2022-11-05 17:12] LABS: Partial Thromboplastin Time 53.2 SECONDS (23.9-36.7)
[2022-11-05 17:22] LABS: Glucose Point of Care 121 mg/dL (70-110)
[2022-11-05] MEDS: heparin 5,000 unit/mL INJ 1 mL IV (17:32)
--- NOTE | 2022-11-05 19:09 | PM.PN ---
Subjective Subjective: She says she is doing okay today. Her mouth is dry this morning she is n.p.o. awaiting her procedure. She denies pain or discomfort. Medications: Reviewed: Yes Vitals/I&O/Wt Last Vital Signs Temp 97.8 F 11/05/22 16:00 Pulse 85 11/05/22 16:00 Resp 17 11/05/22 16:00 BP 145/69 11/05/22 16:00 Pulse Ox 92 11/05/22 16:00 O2 Del Method 11/05/22 14:31 O2 Flow Rate 3 11/05/22 14:31 11/05/22 11/05/22 11/05/22 06:59 14:59 22:59 Intake Total 300 / 2830.65 857 / 857 633.867 / 1490.867 Output Total 1100 / 2100 300 / 300 200 / 500 Balance -800 / 730.65 557 / 557 433.867 / 990.867 Weight last 48 hrs Weight 73.227 kg Weight 70.851 kg Physical Exam Const: COMMON NORMALS: patient oriented x3 and alert GENERAL APPEARANCE: cooperative ORIENTATION/CONSCIOUSNESS: Yes awake; not confused Neck/C-Spine: COMMON NORMALS: no JVD Resp: COMMON NORMALS: normal respiratory effort and clear to auscultation bilaterally AUSCULTATION: clear to auscultation bilaterally Cardio: COMMON NORMALS: no JVD, regular rhythm, S1 normal heart sound present, S2 normal heart sound present and No murmurs present (Cardio) RHYTHM: regular rhythm HEART SOUNDS: S1 normal heart sound present and S2 normal heart sound present GI: COMMON NORMALS: Normal to inspection, nondistended, normoactive bowel sounds present, Soft to palpation and non-tender PALPATION: Yes Soft to palpation Extremity: COMMON NORMALS: no joint enlargement and no pedal edema Neuro: COMMON NORMALS: patient oriented x3 and moves all extremities SENSORIUM/ORIENTATION: Yes alert OTHER: Skin: COMMON NORMALS: no rashes or lesions noted GENERAL SKIN EXAM: no rashes or lesions noted Urinary Catheter Management: Sanedrs: Cath Placed During This Visit: yes Reason for Continuing Indwelling Catheter: Other Urinary Catheter Date of Insertion: 11/01/22 Urinary Catheter Time of Insertion: 00:33 Data 11/05/22 04:29 11/05/22 12:42 Micro: Microbiology 11/05/22 11:52 Enteric Pathogens (PCR) - Final Stool Routine Collection 11/03/22 15:54 Blood Culture - Preliminary Blood NEGATIVE TO DATE 11/03/22 15:50 Blood Culture - Preliminary Blood NEGATIVE TO DATE A&P Assessment and plan (1) Sepsis: No growth on repeat cultures. No vegetation on PAT PICC line requested but could not be placed today. Follow-up pending repeat cultures confirm clearance of bacteremia. Continue empiric antibiotic coverage with ceftriaxone, vancomycin. PICC line once able to. Follow-up blood culture ID and sensitivities. Group g strep on gram stain. Septic thrombophlebitis, probably less likely although could not entirely exclude possible bacterial meningitis. L4 compression fracture appears uncomplicated, lower likelihood but not entirely excluded is early discitis but again early discitis cannot be 100% excluded. Discussed also presence of the thrombus in IVC again as well as again considering anticoagulation and its benefits and risks and her condition. Withhold sertraline so as not to increase bleeding risk. Prolonged antibiotic course is anticipated with duration of at least 6 weeks, likely with ceftriaxone 1 g daily follow-up repeat blood cultures for clearance before insertion of PICC line. Appreciated results of head CT, right ankle CT. CT abdomen pelvis obtained as well, incidentally noted prominent atherosclerotic vascular changes, again noted compression fracture, but no other localized findings that may suggest other focus of infection. Sepsis resolving. Resolved persistent confusion, recurrent low-grade fever on admission. On presentation leukocytosis 30,000. Bacteremia with 2/4 bottles gram-positive cocci reported on blood culture. Unclear if this may be contaminant, culture repeated. In case of your bacteremia source unclear. Did have hospitalization recently. No port or PICC line. In terms of foreign bodies had right ankle fracture in the past and has some hardware there. Imaged with CT, no appearance of infection around the hardware or loose hardware. Does appear to have swelling and bruising of the right antecubital fossa with superficial thrombophlebitis. Has been complaining of back pain recently, noted L4 compression fracture, 5 mm retropulsion causing severe central canal stenosis. No appearance of hydrocephalus. Does not appear like discitis, or if he has discitis is very early. Follow-up with infectious disease. Chest x-ray not suggestive of bacterial pneumonia. UA otherwise unremarkable no report of GI symptoms. No diarrhea. (2) Acute encephalopathy: Encephalopathy now appears largely resolved with resolving sepsis. Suspected acute encephalopathy secondary to severe sepsis, probably less likely although could not entirely exclude possible bacterial meningitis. Group B strep bacteremia noted. Suspected septic thrombophlebitis. No intracardiac shunt TTE bubble study. Unlikely Tamiflu induced encephalopathy and delirium. She is done with Tamiflu. Less likely encephalopathy secondary to steroid, possible, she will be done with prednisone now. Hold sertraline. PT, OT assessment. (3) Elevated d-dimer: Once PICC line in place transition to Eliquis for PE and DVT. PE, IVC defect concerning for localized thrombus. On anticoagulation with heparin drip. Also noted superficial thrombophlebitis cephalic vein and right antecubital fossa. (4) High anion gap metabolic acidosis: Resolved. Euglycemic ketoacidosis. Received 2 doses 10 units Lantus. Stop IVF. Continue sliding scale insulin. Consistent carbohydrate diet. (5) Hypokalemia: Replace potassium and magnesium. Follow-up level. (6) SRINATH (acute kidney injury): Resolved with fluid challenge. DC IVF. Reassess renal function. Hold ARB. (7) Sinus tachycardia: Resolved. Suspect secondary to dehydration, DKA, possibly sepsis. PE. (8) Hyperglycemia: Prediabetes or may be developing diabetes, A1c 6.1%. Euglycemic ketoacidosis resolved. Stop LR. Continue sliding scale insulin. Consistent carbohydrate diet. (9) Troponin level elevated: Mild elevation of bili with positive delta. Suspect demand schema secondary sepsis, however, may be unmasking underlying coronary disease. TTE EF 70%, grade 1 diastolic function. No RWMA. Would benefit down the road from further risk stratification with outpatient stress test. Currently on anticoagulation. (10) Compression fracture: Has been complaining of back pain recently, noted L4 compression fracture, 5 mm retropulsion causing severe central canal stenosis. No appearance of hydrocephalus. Does not appear like discitis, or if he has discitis is very early. Consider additional follow-up imaging with contrast CT or MRI. Lidocaine patch. Follow-up with infectious disease. (11) Acquired abnormality of inferior vena cava: 0.9 x 1.3 x 1.5 cm partial filling defect in the posterior distal inferior vena cava, at the L4 level. The other visualized large deep veins appear patent. Appearance of possible thrombus. Discussed risk of bleeding, resume anticoagulation due to central venous thrombosis. (12) Anemia: Hemoglobin improved. May have been dilutional with rehydration after dehydration on presentation, Check Hemoccult Noted iron deficiency anemia. Will need iron supplementation and further work-up that includes endoscopy to exclude occult malignancy after discharge. No retroperitoneal/psoas hematoma on CT. (13) Prediabetes: Plan Diarrhea: C. difficile requested. Left arm paresthesia: No DVT on duplex ultrasound. HTN: Olmesartan on hold for now due to SRINATH. Dysphagia: Continue dysphagia diet. ST reassessment. Reported influenza A during prior hospitalization. Off isolation. Attestations Medical Necessity Statement*: Continue admission for cyst management of septic thrombophlebitis complicated by bacteremia, post discharge planning and arrangements for continued IV antibiotics. Coding Level of Care Code Acute Utilization Management Manager for g Fwd Diagnoses Sepsis A41.9 Acute encephalopathy G93.40 Elevated d-dimer R79.89 High anion gap metabolic acidosis E87.29 Hypokalemia E87.6 SRINATH (acute kidney injury) N17.9 Sinus tachycardia R00.0 Hyperglycemia R73.9 Troponin level elevated R77.8 Compression fracture Acquired abnormality of inferior vena cava I87.9 Anemia D64.9 Prediabetes R73.03
[2022-11-05] MEDS: fluconazole premix 400 MG/200 ML PIGGYBACK 200 MG IV (20:53)
[2022-11-05 21:21] LABS: Glucose Point of Care 140 mg/dL (70-110)
[2022-11-05] MEDS: pantoprazole 40 mg SDV IVP (21:24)
[2022-11-06] VITALS (9 sets, daily range): BP systolic 153–179; BP diastolic 74–79; PULSE 77–93; RESP 16–18; TEMP 36.4–36.9; O2SAT 94–97
[2022-11-06] MEDS: vancomycin 1,000 MG in sodium chloride 0.9% 250 ML 250 MG IV ×3 (00:09→23:05)
[2022-11-06 04:00] LABS: Basophils % 0.3 %; Eosinophils # 0.2 10^3/uL (0.0-0.8); Eosinophils % 1.6 %; Hematocrit 37.4 % (37.0-47.0); Hemoglobin 11.2 g/dL (11.5-15.3); Lymphocytes # 1.6 10^3/uL (0.8-4.8); Lymphocytes % 13.4 %; Mean Corpuscular HGB Conc 29.9 g/dL (30.0-36.0); Mean Corpuscular Hemoglobin 22.8 pg (28.0-34.0); Mean Corpuscular Volume 76.2 fl (81-99); Mean Platelet Volume 13.1 fL (7.4-10.4); Monocytes # 0.7 10^3/uL (0.2-0.9); Monocytes % 5.4 %; Neutrophils # 9.23 10^3/uL (1.8-7.7); Nucleated Red Blood Cells % 0 %; Platelet Count 297 10^3/cmm (130-400); Red Blood Count 4.91 10^6/uL (4.1-5.3); Red Cell Distribution Width 15.9 % (12.1-15.1)
[2022-11-06 04:24] LABS: Alanine Aminotransferase 29 U/L (0-33); Albumin Level 2.8 g/dL (3.5-5.2); Alkaline Phosphatase 55 U/L (35-105); Anion Gap 12.1 (5-19); Aspartate Amino Transferase 24 U/L (0-32); Blood Urea Nitrogen 6 mg/dL (8-23); Calcium 8.6 mg/dL (8.5-10.5); Carbon Dioxide 29 mmol/L (22-29); Chloride 103 mmol/L (98-107); Globulin 3.1 g/dL (1.3-4.6); Glucose 91 mg/dL (65-115); Osmolality Calculated 289 mOsm/kg (285-295); Potassium 3.1 mmol/L (3.5-5.1); Sodium 141 mmol/L (136-145); Total Bilirubin 0.2 mg/dL (0.15-1.2); Total Protein 5.9 g/dL (6.6-8.7)
[2022-11-06 05:09] LABS: Slide Review Slide Review Perform
[2022-11-06 06:34] LABS: Glucose Point of Care 82 mg/dL (70-110)
[2022-11-06 07:55] LABS: Partial Thromboplastin Time 79.7 SECONDS (23.9-36.7)
[2022-11-06] MEDS: amlodipine 10 mg Tablet PO (09:20)
[2022-11-06] MEDS: atorvastatin 40 mg Tablet PO (09:20)
[2022-11-06] MEDS: lidocaine 5% Patch 1 PATCH TOPICAL (09:20)
[2022-11-06 11:21] LABS: Glucose Point of Care 96 mg/dL (70-110)
[2022-11-06] MEDS: acetaminophen 325 mg Tablet 650 MG PO (12:47)
[2022-11-06] MEDS: cefTRIAXone 2,000 MG in sodium chloride 0.9% (plus) 50 ML 100 MG IV (12:48)
[2022-11-06] MEDS: heparin drip 25,000 UNIT/500 ML PREMIX 14 UNIT IV (14:02)
[2022-11-06 16:01] LABS: Partial Thromboplastin Time 32.9 SECONDS (23.9-36.7)
[2022-11-06] MEDS: heparin 5,000 unit/mL INJ 1 mL IV (16:22)
[2022-11-06 16:42] LABS: Glucose Point of Care 124 mg/dL (70-110)
--- NOTE | 2022-11-06 20:18 | P.PN_ITS ---
Subjective Subjective: He states he feels better. Not short of breath. No chest pain. Discussed with her results of PAT. Vitals/I&O/Wt Last Vital Signs Temp 98.3 F 11/06/22 15:44 Pulse 86 11/06/22 20:12 Resp 16 11/06/22 20:12 BP 153/76 11/06/22 15:44 Pulse Ox 96 11/06/22 20:12 O2 Del Method 11/06/22 20:12 O2 Flow Rate 2 11/06/22 20:12 11/06/22 11/06/22 11/06/22 06:59 14:59 22:59 Intake Total 300 / 2110.867 656.133 / 656.133 250 / 906.133 Output Total 1300 / 1800 Balance -1000 / 310.867 656.133 / 656.133 250 / 906.133 Weight last 48 hrs Weight 74.162 kg Weight 73.227 kg Physical Exam Narrative: Daughter at bedside. Const: COMMON NORMALS: patient oriented x3 and alert GENERAL APPEARANCE: cooperative ORIENTATION/CONSCIOUSNESS: Yes awake; not confused Neck/C-Spine: COMMON NORMALS: no JVD Resp: COMMON NORMALS: normal respiratory effort and clear to auscultation bilaterally AUSCULTATION: clear to auscultation bilaterally Cardio: COMMON NORMALS: no JVD, regular rhythm, S1 normal heart sound present, S2 normal heart sound present and No murmurs present (Cardio) RHYTHM: regular rhythm HEART SOUNDS: S1 normal heart sound present and S2 normal heart sound present GI: COMMON NORMALS: Normal to inspection, nondistended, normoactive bowel sounds present, Soft to palpation and non-tender PALPATION: Yes Soft to palpation Extremity: COMMON NORMALS: no joint enlargement and no pedal edema Neuro: COMMON NORMALS: patient oriented x3 and moves all extremities SENSORIUM/ORIENTATION: Yes alert OTHER: Skin: COMMON NORMALS: no rashes or lesions noted GENERAL SKIN EXAM: no rashes or lesions noted Urinary Catheter Management: Sanders: Cath Placed During This Visit: yes Reason for Continuing Indwelling Catheter: Accurate Measurement of Urinary Output in Critically Ill Patients Urinary Catheter Date of Insertion: 11/01/22 Urinary Catheter Time of Insertion: 00:33 Data 11/06/22 02:57 11/06/22 02:57 Micro: Microbiology 12/05/22 12:07 Blood Culture - Final Blood NO GROWTH AFTER 5 DAYS 11/01/22 12:05 Blood Culture - Final Blood NO GROWTH AFTER 5 DAYS 11/05/22 11:52 Enteric Pathogens (PCR) - Final Stool Routine Collection C.difficile Toxin B Gene (PCR) - Final A&P Assessment and plan (1) Sepsis: PICC line could not be placed yesterday. Place PICC line if available today or tomorrow. Daughter is also now here to learn how to give infusions which will be continued after discharge. No growth on repeat cultures. No vegetation on PAT Follow-up pending repeat cultures confirm clearance of bacteremia. Continue empiric antibiotic coverage with ceftriaxone, vancomycin. PICC line once able to. Follow-up blood culture ID and sensitivities. Group g strep on gram stain. Septic thrombophlebitis, probably less likely although could not entirely exclude possible bacterial meningitis. L4 compression fracture appears uncomplicated, lower likelihood but not entirely excluded is early discitis but again early discitis cannot be 100% excluded. Discussed also presence of the thrombus in IVC again as well as again considering anticoagulation and its benefits and risks and her condition. Withhold sertraline so as not to increase bleeding risk. Prolonged antibiotic course is anticipated with duration of at least 6 weeks, likely with ceftriaxone 1 g daily follow-up repeat blood cultures for clearance before insertion of PICC line. Appreciated results of head CT, right ankle CT. CT abdomen pelvis obtained as well, incidentally noted prominent atherosclerotic vascular changes, again noted compression fracture, but no other localized findings that may suggest other focus of infection. Sepsis resolving. Resolved persistent confusion, recurrent low-grade fever on admission. On presentation leukocytosis 30,000. Bacteremia with 2/4 bottles gram-positive co cci reported on blood culture. Unclear if this may be contaminant, culture repeated. In case of your bacteremia source unclear. Did have hospitalization recently. No port or PICC line. In terms of foreign bodies had right ankle fracture in the past and has some hardware there. Imaged with CT, no appearance of infection around the hardware or loose hardware. Does appear to have swelling and bruising of the right antecubital fossa with superficial thrombophlebitis. Has been complaining of back pain recently, noted L4 compression fracture, 5 mm retropulsion causing severe central canal stenosis. No appearance of hydrocephalus. Does not appear like discitis, or if he has discitis is very early. Follow-up with infectious disease. Chest x-ray not suggestive of bacterial pneumonia. UA otherwise unremarkable no report of GI symptoms. No diarrhea. (2) Acute encephalopathy: Encephalopathy now appears largely resolved with resolving sepsis. Suspected acute encephalopathy secondary to severe sepsis, probably less likely although could not entirely exclude possible bacterial meningitis. Group B strep bacteremia noted. Suspected septic thrombophlebitis. No intracardiac shunt TTE bubble study. Unlikely Tamiflu induced encephalopathy and delirium. She is done with Tamiflu. Less likely encephalopathy secondary to steroid, possible, she will be done with prednisone now. Hold sertraline. PT, OT assessment. (3) Elevated d-dimer: Once PICC line in place transition to Eliquis for PE and DVT. PE, IVC defect concerning for localized thrombus. On anticoagulation with heparin drip. Also noted superficial thrombophlebitis cephalic vein and right antecubital fossa. (4) High anion gap metabolic acidosis: Resolved. Euglycemic ketoacidosis. Received 2 doses 10 units Lantus. Stop IVF. Continue sliding scale insulin. Consistent carbohydrate diet. (5) Hypokalemia: Replace potassium and magnesium. Follow-up level. (6) SRINATH (acute kidney injury): Resolved with fluid challenge. DC IVF. Reassess renal function. Hold ARB. (7) Sinus tachycardia: Resolved. Suspect secondary to dehydration, DKA, possibly sepsis. PE. (8) Hyperglycemia: Prediabetes or may be developing diabetes, A1c 6.1%. Euglycemic ketoacidosis resolved. Stop LR. Continue sliding scale insulin. Consistent carbohydrate diet. (9) Troponin level elevated: Mild elevation of bili with positive delta. Suspect demand schema secondary sepsis, however, may be unmasking underlying coronary disease. TTE EF 70%, grade 1 diastolic function. No RWMA. Would benefit down the road from further risk stratification with outpatient stress test. Currently on anticoagulation. (10) Compression fracture: Has been complaining of back pain recently, noted L4 compression fracture, 5 mm retropulsion causing severe central canal stenosis. No appearance of hydrocephalus. Does not appear like discitis, or if he has discitis is very early. Consider additional follow-up imaging with contrast CT or MRI. Lidocaine patch. Follow-up with infectious disease. (11) Acquired abnormality of inferior vena cava: 0.9 x 1.3 x 1.5 cm partial filling defect in the posterior distal inferior vena cava, at the L4 level. The other visualized large deep veins appear patent. Appearance of possible thrombus. Discussed risk of bleeding, resume anticoagulation due to central venous thrombosis. (12) Anemia: Hemoglobin improved. May have been dilutional with rehydration after dehydration on presentation, Check Hemoccult Noted iron deficiency anemia. Will need iron supplementation and further work- up that includes endoscopy to exclude occult malignancy after discharge. No retroperitoneal/psoas hematoma on CT. (13) Prediabetes: Plan Diarrhea: C. difficile requested. Left arm paresthesia: No DVT on duplex ultrasound. HTN: Olmesartan on hold for now due to SRINATH. Dysphagia: Continue dysphagia diet. ST reassessment. Reported influenza A during prior hospitalization. Off isolation. Attestations Medical Necessity Statement*: Continue management of septic thrombophlebitis, planning arrangement for continued IV antibiotic therapy after discharge. Coding Level of Care Code Acute [employer] for [facility] Fwd Diagnoses Sepsis A41.9 Acute encephalopathy G93.40 Elevated d-dimer R79.89 High anion gap metabolic acidosis E87.29 Hypokalemia E87.6 SRINATH (acute kidney injury) N17.9 Sinus tachycardia R00.0 Hyperglycemia R73.9 Troponin level elevated R77.8 Compression fracture Acquired abnormality of inferior vena cava I87.9 Anemia D64.9 Prediabetes R73.03
[2022-11-06 20:55] LABS: Glucose Point of Care 127 mg/dL (70-110)
[2022-11-06] MEDS: fluconazole premix 400 MG/200 ML PIGGYBACK 200 MG IV (21:36)
[2022-11-06] MEDS: pantoprazole 40 mg SDV IVP (22:07)
[2022-11-07] VITALS (9 sets, daily range): BP systolic 146–172; BP diastolic 66–77; PULSE 75–92; RESP 16–18; TEMP 36.7–36.9; O2SAT 93–97
[2022-11-07] MEDS: cefTRIAXone 2,000 MG in sodium chloride 0.9% (plus) 50 ML 100 MG IV ×3 (00:10→22:59)
[2022-11-07] MEDS: acetaminophen 325 mg Tablet 650 MG PO ×3 (00:11→23:27)
[2022-11-07 04:03] LABS: Basophils % 0.2 %; Eosinophils # 0.1 10^3/uL (0.0-0.8); Eosinophils % 1.1 %; Hematocrit 36.4 % (37.0-47.0); Hemoglobin 11.2 g/dL (11.5-15.3); Lymphocytes # 1.4 10^3/uL (0.8-4.8); Lymphocytes % 12.8 %; Mean Corpuscular HGB Conc 30.8 g/dL (30.0-36.0); Mean Corpuscular Hemoglobin 23.1 pg (28.0-34.0); Mean Corpuscular Volume 75.1 fl (81-99); Monocytes # 0.6 10^3/uL (0.2-0.9); Monocytes % 5.6 %; Neutrophils # 8.22 10^3/uL (1.8-7.7); Neutrophils % 77.7 %; Nucleated Red Blood Cells % 0 %; Platelet Count 294 10^3/cmm (130-400); Red Blood Count 4.85 10^6/uL (4.1-5.3); Red Cell Distribution Width 15.9 % (12.1-15.1); White Blood Count 10.6 10^3/uL (4.0-10.0)
[2022-11-07 04:24] LABS: Anion Gap 9.7 (5-19); Blood Urea Nitrogen 4 mg/dL (8-23); Calcium 8.9 mg/dL (8.5-10.5); Carbon Dioxide 30 mmol/L (22-29); Chloride 96 mmol/L (98-107); Glucose 105 mg/dL (65-115); Osmolality Calculated 273 mOsm/kg (285-295); Sodium 133 mmol/L (136-145)
[2022-11-07 04:26] LABS: Partial Thromboplastin Time 73.4 SECONDS (23.9-36.7)
[2022-11-07 04:31] LABS: Potassium 2.7 mmol/L (3.5-5.1)
[2022-11-07] MEDS: potassium chloride oral liq 20 mEq/15 mL UDC 40 MEQ PO ×2 (05:16→11:57)
[2022-11-07 06:22] LABS: Glucose Point of Care 101 mg/dL (70-110)
[2022-11-07] MEDS: lidocaine 5% Patch 1 PATCH TOPICAL ×2 (09:10→20:16)
[2022-11-07] MEDS: amlodipine 10 mg Tablet PO (09:10)
[2022-11-07] MEDS: atorvastatin 40 mg Tablet PO (09:10)
[2022-11-07 10:16] LABS: Partial Thromboplastin Time 54.9 SECONDS (23.9-36.7)
[2022-11-07 10:19] LABS: Vancomycin Trough 16.4 ug/mL (10-15)
[2022-11-07 11:24] LABS: Glucose Point of Care 88 mg/dL (70-110)
[2022-11-07] MEDS: heparin 5,000 unit/mL INJ 1 mL IV (11:35)
[2022-11-07] MEDS: vancomycin 1,000 MG in sodium chloride 0.9% 250 ML 250 MG IV ×2 (13:26→23:28)
--- NOTE | 2022-11-07 13:40 | XRR_ITS ---
PROCEDURE INFORMATION: Exam: XR Chest Exam date and time: 11/07/2022 2:37 PM Age: 72 years old Clinical indication: Device placement; Patient HX: Need locating of picc placement; Additional info: Post picc placement, gamal placing on med-surg room 271. Will call when ready TECHNIQUE: Imaging protocol: Radiologic exam of the chest. Views: 1 view. COMPARISON: CR (CHEST, ) 10/31/2022 3:55 PM FINDINGS: Tubes, catheters and devices: Left PICC line terminates in the distal SVC. Lungs: No consolidation. Pleural spaces: No pleural effusion. No pneumothorax. Heart/Mediastinum: No cardiomegaly. Vasculature: Vascular stent projects in the region of the left thoracic inlet. Bones/joints: Visualized osseous structures are intact. XR/XR chest 1V portable [id number] IMPRESSION: Left PICC line in proper positioning. No acute findings.
--- NOTE | 2022-11-07 14:42 | P.DS_ITS ---
Discharge Providers Date of Admission: 10/31/22 20:08 Date of Discharge: November 07, 2022 Attending Provider at Admission: Randolph Garibay Attending Provider at Discharge: Randolph Garibay Primary Care Provider: Melanie Joyce NP Diagnoses at Discharge Discharge Diagnosis (1) Sepsis: Status: Acute (2) Acute encephalopathy: Status: Acute (3) Elevated d-dimer: Status: Acute (4) High anion gap metabolic acidosis: Status: Acute (5) Hypokalemia: Status: Acute (6) SRINATH (acute kidney injury): Status: Acute (7) Sinus tachycardia: Status: Acute (8) Hyperglycemia: Status: Acute (9) Troponin level elevated: Status: Acute (10) Compression fracture: Status: Acute (11) Acquired abnormality of inferior vena cava: Status: Acute (12) Anemia: Status: Acute (13) Prediabetes: Status: Acute Reason for Visit Reason for Visit: RESP DISTRESS Hospital Course Hospital Course Pleasant 72-year-old lady recently admitted for treatment of reported influenza A discharge when improving on 6 L of oxygen was brought back to the hospital on 10/31 after found to be confused, with her oxygen off, dyspneic, on presentation with acute encephalopathy, sepsis. Chest x-ray on presentation without acute findings. As she had been complaining of back pain imaging of her back obtained with CT thoracic and lumbar spine, with noted acute moderate compression of L4 w ith 5 mm retropulsion causing severe central canal stenosis, additionally 0.9 x 1.3 x 1.5 cm partial filling defect in the posterior distal inferior vena cava at the level of L4 suspicious for localized thrombus. On presentation with bruising, swelling of the right antecubital fossa, imaged with ultrasound without abscess/collection. Venous duplex ultrasound with superficial thrombus in the right distal cephalic vein above the elbow nearly bandage. Remainder patent. Lower extremity duplex negative for DVT. Additional imaging of head CT without acute intracranial hemorrhage, mild atrophy and small vessel disease, external artifact throughout pain limiting for subtle pathology. With history of ankle fracture and hardware in right ankle imaged with CT, hardware in place intact by CT no obvious fracture or loosening of the screws. CT abdomen pelvis with prominent atherosclerotic vascular changes especially notable high-grade stenosis in the right, iliac artery. L4 compression fracture again noted. 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 Encephalopathy started to gradually clear up, she defervesced. Encephalopathy likely related to sepsis, less likely component of steroid-induced encephalopathy, less likely encephalopathy secondary to Tamiflu. Blood cultures also growing group G Streptococcus. Antibiotics de-escalated f rom initial broad-spectrum antibiotic down to ceftriaxone. Empirically was also receiving Diflucan. Difficult decision discussed with her family and specifically with her with regards to continuation of anticoagulation. Etiology for sepsis was likely due to septic thrombophlebitis, increasing risk of bleeding. She additionally underwent PAT to assess for any vegetation given typical organism, vascular phenomena, initially recurrent fever, no vegetations noted, taking out some of the risk from anticoagulation. She will continue on 6 weeks of intravenous antibiotic therapy due to septic thrombophlebitis, as well as L4 compression fracture which may be benign, but with streptococcal bacteremia and no history of fall, cannot entirely exclude possibility of early discitis. Due to the disease she is also asked to follow- up with infectious disease. PICC line is being placed prior to discharge and should be removed once she completes antibiotic therapy. She is transition to Eliquis at discharge for anticoagulation. SSRI is held to avoid increasing risk of bleeding. Additional problems during hospitalization SRINATH which resolved. Please reassess renal function. On presentation also with metabolic acidosis, euglycemic ketoacidosis, transiently on insulin drip, which had resolved. Found to have prediabetes. Please follow-up. On presentation troponin elevation with positive delta. Remains chest pain- free. Is referred for additional assessment by stress test. Please follow-up. Hypokalemia requiring multiple replacements. Restarted on olmesartan, given potassium supplements at discharge. Please reassess potassium. Iron deficiency anemia, she started on iron supplementation, please reassess, refer for additional work-up with endoscopy to exclude malignancy. Diarrhea during hospitalization, C. difficile checked and negative. Transient dysphagia during hospitalization while recovering from encephalopathy, assessed by ST, with improvement. Physical Exam Const: COMMON NORMALS: patient oriented x3 and alert GENERAL APPEARANCE: cooperative ORIENTATION/CONSCIOUSNESS: Yes awake; not confused Neck/C-Spine: COMMON NORMALS: no JVD Resp: COMMON NORMALS: normal respiratory effort and clear to auscultation bilaterally AUSCULTATION: clear to auscultation bilaterally Cardio: COMMON NORMALS: no JVD, regular rhythm, S1 normal heart sound present, S2 normal heart sound present and No murmurs present (Cardio) RHYTHM: regular rhythm HEART SOUNDS: S1 normal heart sound present and S2 normal heart sound present GI: COMMON NORMALS: Normal to inspection, nondistended, normoactive bowel sounds present, Soft to palpation and non-tender PALPATION: Yes Soft to palpation Extremity: COMMON NORMALS: no joint enlargement and no pedal edema Neuro: COMMON NORMALS: patient oriented x3 and moves all extremities SENSORIUM/ORIENTATION: Yes alert OTHER: Skin: COMMON NORMALS: no rashes or lesions noted GENERAL SKIN EXAM: no rashes or lesions noted Urinary Catheter Management: Sanders: Cath Placed During This Visit: yes Reason for Continuing Indwelling Catheter: Acute Urinary Retention or Obstruction Urinary Catheter Date of Insertion: 11/01/22 Urinary Catheter Time of Insertion: 00:33 Discharge Data Studies Completed and Pending Completed Studies During Hospitalization Category Date Time Status CT abdomen pelvis w con* [id number] Routine Cat Scan 11/02/22 15:[address] angio chest PE protcl [id number] Stat Cat Scan 10/31/22 17:[address] ankle RT w con [id number] Routine Cat Scan 11/01/22 11:[address] head wo con* [id number] Routine Cat Scan 11/01/22 11:[address] lumbar spine w con [id number] Stat Cat Scan 10/31/22 18:[address] thoracic spine w con [id number] Stat Cat Scan 10/31/22 18:29 Completed XR chest 1V portable [id number] Stat Exams 10/31/22 15:37 [place] [id number] Routine Ultrasound 11/01/22 14:42 [place] [id number] Routine Ultrasound 11/04/22 12:34 [place] [id number] Routine Ultrasound 11/01/22 14:45 Completed CV. echo transesophageal [id number] Routine Ultrasound 11/05/22 13:00 Completed CV. echo w/w bubble cont [id number] Routine Ultrasound 11/02/22 18:55 Completed US soft tissue and or extremity [US soft tissue/ Ultrasound 11/01/22 14:45 Completed extremity [id number]] Routine Pending at discharge Category Date Time Status XR chest 1V portable [id number] Routine Exams 11/07/22 13:40 Ordered Basic Metabolic Panel AM LABS Lab 11/08/22 04:00 Ordered Basic Metabolic Panel AM LABS Lab 11/09/22 04:00 Ordered Blood Culture Stat Lab 11/03/22 15:50 Results Occult Blood Stool [Immunochemical Fecal OCB] Routine Lab 11/05/22 17:59 Ordered Radiology Impressions Chest X-Ray 10/31/22 15:37 IMPRESSION: No acute findings. Chest CTA 10/31/22 17:25 IMPRESSION: 1. Small pulmonary emboli in the left upper lobe. No evidence for elevated right heart pressure. 2. No acute pulmonary finding. ADDENDUM: 10/31/222052 THIS REPORT CONTAINS FINDINGS THAT MAY BE CRITICAL TO PATIENT CARE. The findings were verbally communicated via telephone conference with Dr Parham at 8:51 PM BILINGUAL CALL CENTER REPRESENTATIVE on 10/31/2022. The findings were acknowledged and understood. Lumbar Spine CT 10/31/22 18:16 IMPRESSION: 1. Partial deep vein thrombosis in the distal inferior vena cava, at the L4 level. 2. Acute moderate compression fracture of superior L4 with 5 mm retropulsion causing severe central canal stenosis. 3. Degenerative changes with severe central canal stenosis at L4-L5. ADDENDUM: 10/31/221925 THIS REPORT CONTAINS FINDINGS THAT MAY BE CRITICAL TO PATIENT CARE. The findings were verbally communicated via telephone conference with Dr Orta at 7:24 PM BILINGUAL CALL CENTER REPRESENTATIVE on 10/31/2022. The findings were acknowledged and understood. Thoracic Spine CT 10/31/22 18:29 IMPRESSION: No acute findings. Head CT 11/01/22 11:08 IMPRESSION: 1. No acute intracranial hemorrhage or edema. 2. Mild atrophy and mild small vessel ischemic disease. 3. External artifact throughout the brain limiting for subtle pathology. Ankle CT 11/01/22 11:21 IMPRESSION: 1. Plate and screw fixation distal tibia and fibula. Intact by CT. No obvious fracture or loosening of the screws. 2. No focal abscess. 3. Diffuse osteopenia. Soft Tissue Ultrasound 11/01/22 14:45 IMPRESSION: 1. No abscess or mass in the antecubital fossa. 2. Superficial thrombophlebitis cephalic vein in the antecubital fossa. Abdomen/Pelvis CT 11/02/22 15:29 IMPRESSION: Rectal fecal impaction. Prominent atherosclerotic vascular changes as noted above especially notable high-grade stenosis in the right common iliac artery. Old compression fracture of the superior endplate of L4. Laboratory Results WBC 10.6 10^3/uL (4.0-10.0) H 11/07/22 03:35 RBC 4.85 10^6/uL (4.1-5.3) 11/07/22 03:35 Hgb 11.2 g/dL (11.5-15.3) L 11/07/22 03:35 Hct 36.4 % (37.0-47.0) L 11/07/22 03:35 MCV 75.1 fl (81-99) L 11/07/22 03:35 MCH 23.1 pg (28.0-34.0) L 11/07/22 03:35 MCHC 30.8 g/dL (30.0-36.0) 11/07/22 03:35 RDW 15.9 % (12.1-15.1) H 11/07/22 03:35 Plt Count 294 10^3/cmm (130-400) 11/07/22 03:35 MPV 12.0 fL (7.4-10.4) H 11/07/22 03:35 Neut % (Auto) 77.7 % 11/07/22 03:35 Lymph % (Auto) 12.8 % 11/07/22 03:35 [place] % (Auto) 5.6 % 11/07/22 03:35 Eos % (Auto) 1.1 % 11/07/22 03:35 Baso % (Auto) 0.2 % 11/07/22 03:35 Neut # (Auto) 8.22 10^3/uL (1.8-7.7) H 11/07/22 03:35 Lymph # (Auto) 1.4 10^3/uL (0.8-4.8) 11/07/22 03:35 [place] # (Auto) 0.6 10^3/uL (0.2-0.9) 11/07/22 03:35 Eos # (Auto) 0.1 10^3/uL (0.0-0.8) 11/07/22 03:35 Baso # (Auto) 0.0 10^3/uL (0.0-0.1) 11/07/22 03:35 Nucleated RBC % (auto) 0 % 11/07/22 03:35 Nucleated RBCs # 0.0 /100WBC 11/07/22 03:35 APTT 54.9 SECONDS (23.9-36.7) H 11/07/22 09:50 D-Dimer 2.90 ug/mIFEU (0-0.59) H 10/31/22 16:32 Specimen Type Arterial 10/31/22 15:48 Sample Site Radial, right 10/31/22 15:48 ABG pH 7.45 (7.35-7.45) 10/31/22 15:48 ABG pCO2 34.2 mmHg (35-45) L 10/31/22 15:48 ABG pO2 59.3 mmHg (80.0-100.0) L 10/31/22 15:48 ABG HCO3 23.6 mmol/L (22-26) 10/31/22 15:48 ABG O2 Saturation 92.4 10/31/22 15:48 ABG Base Excess 0.1 mmol/L (-2.0-2.0) 10/31/22 15:48 George Test Pos 10/31/22 15:48 A-a O2 Gradient 20.3 mmHg (5-10) H 10/31/22 15:48 Hematocrit 38.8 % (37-47) 10/31/22 15:48 Hgb O2 Saturation 91.2 % (95-100) L 10/31/22 15:48 Carboxyhemoglobin 1.0 %THgb (0.4-20.1) 10/31/22 15:48 Methemoglobin 0.3 % (0.4-1.5) L 10/31/22 15:48 Total Hemoglobin 12.6 g/dL (12-16) 10/31/22 15:48 Sodium 141.0 mmol/L (131-143) 10/31/22 15:48 Potassium 3.1 mmol/L (3.5-5.0) L 10/31/22 15:48 Glucose 141.0 mg/dL (70-115) H 10/31/22 15:48 Ionized Calcium 1.3 mmol/L (1.1-1.4) 10/31/22 15:48 O2 Delivery Device Nc 10/31/22 15:48 O2 Liters/Min 4.0 % 10/31/22 15:48 FiO2 36.0 % 10/31/22 15:48 Brim Plater ID Cak 10/31/22 15:48 Sodium 133 mmol/L (136-145) L 11/07/22 03:35 Potassium 2.7 mmol/L (3.5-5.1) L* 11/07/22 03:35 Chloride 96 mmol/L (98-107) L 11/07/22 03:35 Carbon Dioxide 30 mmol/L (22-29) H 11/07/22 03:35 Anion Gap 9.7 (5-19) 11/07/22 03:35 BUN 4 mg/dL (8-23) L 11/07/22 03:35 Creatinine 0.5 mg/dL (0.5-0.9) 11/07/22 03:35 GFR Calculation Not Reportable 11/07/22 03:35 Glucose 105 mg/dL (65-115) 11/07/22 03:35 POC Glucose 88 mg/dL (70-110) 11/07/22 11:07 Estimat Average Glucose 128 10/31/22 16:32 Hemoglobin A1c 6.1 % (4.0-6.0) H 10/31/22 16:32 Calculated Osmolality 273 mOsm/kg (285-295) L 11/07/22 03:35 Lactic Acid 1.6 mmol/L (0.5-2.2) 10/31/22 16:32 Calcium 8.9 mg/dL (8.5-10.5) 11/07/22 03:35 Magnesium 1.8 mg/dL (1.7-2.3) 11/05/22 04:29 Iron 14 ug/dL (37-145) L 11/01/22 02:11 TIBC 185 mcg/dl 11/01/22 02:11 % Saturation 7.5 % (20-50) L 11/01/22 02:11 Unsat Iron Binding 171 ug/dL (112-347) 11/01/22 02:11 Ferritin 419 ng/mL (15-150) H 11/01/22 02:11 Total Bilirubin 0.2 mg/dL (0.15-1.2) 11/06/22 02:57 AST 24 U/L (0-32) 11/06/22 02:57 ALT 29 U/L (0-33) 11/06/22 02:57 Alkaline Phosphatase 55 U/L (35-105) 11/06/22 02:57 Troponin T Baseline 25 ng/L (0-10) H 10/31/22 16:32 Troponin T 120 Minute 36.05 ng/L (0-10) H 10/31/22 18:54 Delta Troponin T 11.05 ABS# (0-10) H* 10/31/22 18:54 Troponin T Hi Sens 6Hr 41.92 ng/L (0-10) H 10/31/22 22:22 Troponin T Hi Sens 6Hr Delta 16.92 ng/L (0-12) H* 10/31/22 22:22 Total Protein 5.9 g/dL (6.6-8.7) L 11/06/22 02:57 Albumin 2.8 g/dL (3.5-5.2) L 11/06/22 02:57 Globulin 3.1 g/dL (1.3-4.6) 11/06/22 02:57 Urine Color Yellow (Yellow) 10/31/22 16:45 Urine Appearance Clear (CLEAR) 10/31/22 16:45 Urine pH 5 (5-7) 10/31/22 16:45 Ur Specific [place] 1.025 (1.005-1.030) 10/31/22 16:45 Urine Protein 1+ (Negative) H 10/31/22 16:45 Urine Glucose (UA) Norm (Normal) 10/31/22 16:45 Urine Ketones 1+ (Negative) H 10/31/22 16:45 Urine Blood Neg (Negative) 10/31/22 16:45 Urine Nitrate Negative (Negative) 10/31/22 16:45 Urine Bilirubin Neg (Negative) 10/31/22 16:45 Urine Urobilinogen Neg mg/dL (Negative) 10/31/22 16:45 Ur Leukocyte Esterase Negative (Negative) 10/31/22 16:45 Vancomycin Trough 16.4 ug/mL (10-15) H 11/07/22 09:50 Serum Ketones Positive (Negative) H 10/31/22 16:32 Coronavirus 229E (PCR) Not detected (NOT DETECT) 11/02/22 06:12 SARS-CoV-2 (PCR) Not detected (NOT DETECT) 11/02/22 06:12 Vitals Last Vital Signs Temp 98.0 F 11/07/22 11:56 Pulse 90 11/07/22 11:56 Resp 18 11/07/22 11:56 BP 148/66 11/07/22 11:56 Pulse Ox 96 11/07/22 11:56 O2 Del Method 11/07/22 11:56 O2 Flow Rate 2 11/07/22 07:28 Discharge Plan Discharge Patient Disposition: Home Condition: Stable Prescriptions: New acetaminophen 325 mg Tablet 650 mg PO Q6H PRN (Reason: Mild/Mod Pain Or Temp >/= 101) Qty: 90 0RF baclofen 10 mg Tablet 10 mg PO QID PRN (Reason: Muscle Spasms) Qty: 30 0RF ceftriaxone 1 gram recon soln 2 g IM Q24H Qty: 35 0RF lidocaine 5 % Adhesive Patch,Medicated 1 patch topical [id number] Qty: 14 0RF potassium chloride 20 mEq tablet extended release 20 meq PO DAILY Qty: 30 0RF apixaban 5 mg (74 tabs) tablets,dose pack See Rx Instructions .ROUTE .COMPLEX Qty: 74 0RF Rx Instructions: 10 mg twice daily for 7 days then 5 mg twice daily ferrous sulfate 325 mg (65 mg iron) tablet 325 mg PO EVERY OTHER DAY Qty: 90 0RF Continued aspirin [Adult Aspirin Regimen] 81 mg tablet,delayed release (DR/EC) 81 mg PO EVERY OTHER DAY albuterol sulfate 2.5 mg /3 mL (0.083 %) solution for nebulization 2.5 mg INHALATION Q4H PRN (Reason: shortness of breath or wheezing) Qty: 180 3RF acetaminophen [Arthritis Pain Relief (acetam)] 650 mg tablet extended release 650 mg PO Q12H calcium carbonate-vitamin D3 [Calcium 600 with Vitamin D3] 600 mg-12.5 mcg (500 unit) capsule 1 cap PO DAILY omeprazole 20 mg capsule,delayed release(DR/EC) 20 mg PO DAILY Qty: 90 3RF pravastatin 40 mg tablet 40 mg PO DAILY amlodipine 10 mg tablet 10 mg PO DAILY olmesartan 5 mg tablet 5 mg PO DAILY Pulmicort Flexhaler 180 mcg/actuation aerosol powdr breath activated 1 inh inhalation BID 30 Days Qty: 1 0RF albuterol sulfate 90 mcg/actuation HFA aerosol inhaler 2 puff inhalation Q4H PRN (Reason: Shortness Of Breath Or Wheezing) Discontinued sertraline 100 mg tablet 100 mg PO BEDTIME prednisone 20 mg tablet 40 mg PO DAILY 5 Days Qty: 5 0RF Discharge Orders: Discharge Order (Routine); Ordered 11/07/22 Ordered By: Randolph Garibay Other Ambulatory Orders: Sestamibi Stress Test Request (Routine) Timeframe: 2 Weeks Facility: [facility] - Location: Cardiac Diagnostic Laboratory Ordered By: Randolph Garibay Referrals: [id number] [Provider Group] - 7-10 days (Early discitis possible. Please call Tuesday to schedule an appointment.) Melanie Joyce NP [Primary Care Provider] - 4-7 days (Please call Tuesday to schedule your appointment with Melanie Joyce.) Discharge Diet: As Directed, Cardiac and Diabetic Discharge Activity: Increase activity as tolerated and As per PT/OT instructions Patient Instructions: Diabetes and Diet, Ceftriaxone (By injection), Pulmonary Embolism (GEN), Vertebral Compression Fracture (GEN), Anemia (GEN), Prediabetes (GEN), Bacteremia (GEN), PICC (Peripherally Inserted Central Catheter) in Children (GEN), Prevent Cardiovascular Disease (GEN) Activity Restrictions/Additional Instructions: PICC line NOT to be placed in the right arm. PICC line not placed today, please comment to have it placed tomorrow in the morning. Continue IV antibiotic infusions with ceftriaxone daily at home to complete 6 weeks of therapy. Follow-up with infectious disease in office for additional assessment of bacteremia, septic thrombophlebitis, L4 compression fracture, consideration of early discitis. Follow-up with your primary doctor with regards to thrombus in lower vena cava and pulmonary emboli. Anticoagulation also in the setting of septic thrombophlebitis. Hold sertraline for now while you are on a blood thinner medication to avoid increasing risk of bleeding. Follow-up with your primary doctor for reassessment after resolution of sepsis, encephalopathy. Follow-up with your primary doctor regarding prediabetes. Maintain consistent carbohydrate diet. Have a primary doctor follow-up 1 year blood sugars, A1c. Continue potassium supplementation due to low potassium level. Please have your primary doctor recheck potassium level at next visit. Follow-up with your primary doctor for assessment of renal function after acute kidney injury which is improved. Assessment of iron deficiency anemia including endoscopic evaluation to exclude malignancy if you have not had any endoscopy recently. Assessment for coronary disease with stress testing given troponin elevation on presentation. Monitor your blood pressures at home, write down values to bring to your appointment. Continue soft and bite sized food and maintain aspiration precautions. Discharge Attestations Time Spent in Discharge Care*: greater than 30 min Quality Metrics Clinical Quality Measures [ No reported AMI, CVA or VTE this stay] Coding Level of Care Code Acute Chg FW DC note Diagnoses Sepsis A41.9 Acute encephalopathy G93.40 Elevated d-dimer R79.89 High anion gap metabolic acidosis E87.29 Hypokalemia E87.6 SRINATH (acute kidney injury) N17.9 Sinus tachycardia R00.0 Hyperglycemia R73.9 Troponin level elevated R77.8 Compression fracture Acquired abnormality of inferior vena cava I87.9 Anemia D64.9 Prediabetes R73.03
[2022-11-07 17:11] LABS: Partial Thromboplastin Time 75.8 SECONDS (23.9-36.7)
[2022-11-07 17:43] LABS: Glucose Point of Care 86 mg/dL (70-110)
[2022-11-07] MEDS: baclofen 10 mg Tablet PO (20:14)
[2022-11-07] MEDS: fluconazole premix 400 MG/200 ML PIGGYBACK 200 MG IV (20:14)
[2022-11-07] MEDS: pantoprazole 40 mg SDV IVP (20:15)
[2022-11-07 21:07] LABS: Glucose Point of Care 156 mg/dL (70-110)
[2022-11-08] VITALS (7 sets, daily range): BP systolic 121–156; BP diastolic 68–82; PULSE 67–92; RESP 15–20; TEMP 36.6–36.9; O2SAT 91–95
[2022-11-08] MEDS: heparin drip 25,000 UNIT/500 ML PREMIX 14 UNIT IV (01:42)
[2022-11-08 05:30] LABS: Partial Thromboplastin Time 50.5 SECONDS (23.9-36.7)
[2022-11-08 05:38] LABS: Blood Urea Nitrogen 4 mg/dL (8-23); Calcium 9.1 mg/dL (8.5-10.5); Carbon Dioxide 28 mmol/L (22-29); Chloride 101 mmol/L (98-107); Glucose 87 mg/dL (65-115); Osmolality Calculated 276 mOsm/kg (285-295); Sodium 135 mmol/L (136-145)
[2022-11-08] MEDS: heparin 5,000 unit/mL INJ 1 mL IV (05:47)
[2022-11-08 05:54] LABS: Anion Gap 10.8 (5-19); Potassium 4.8 mmol/L (3.5-5.1)
[2022-11-08 06:21] LABS: Glucose Point of Care 88 mg/dL (70-110)
[2022-11-08] MEDS: acetaminophen 325 mg Tablet 650 MG PO (08:45)
[2022-11-08] MEDS: lidocaine 5% Patch 1 PATCH TOPICAL (08:45)
[2022-11-08] MEDS: amlodipine 10 mg Tablet PO (08:45)
[2022-11-08] MEDS: atorvastatin 40 mg Tablet PO (08:45)
[2022-11-08 11:26] LABS: Glucose Point of Care 101 mg/dL (70-110)
[2022-11-08] MEDS: lanolin oint 7 gm 1 APPLIC TOPICAL (11:55)
[2022-11-08] MEDS: vancomycin 1,000 MG in sodium chloride 0.9% 250 ML 250 MG IV (11:56)
[2022-11-08] MEDS: cefTRIAXone 2,000 MG in sodium chloride 0.9% (plus) 50 ML 100 MG IV (11:56)
--- NOTE | 2022-11-08 12:34 | P.PN_ITS ---
Subjective Subjective: Patient was discharged yesterday but could not go home as medicines and supply was not delivered to home. Medications and supplies have been delivered to patient's bedside. Hospital course, labs appreciated. No acute events overnight. Patient has remained hemodynamically stable and afebrile. Heparin drip was stopped and will transition over to Eliquis. Patient has received a dose of ceftriaxone prior to discharge. Medications: Reviewed: Yes Vitals/I&O/Wt Last Vital Signs Temp 98.5 F 11/08/22 11:50 Pulse 86 11/08/22 11:50 Resp 18 11/08/22 11:50 BP 132/76 11/08/22 11:50 Pulse Ox 94 11/08/22 11:50 O2 Del Method 11/08/22 11:50 O2 Flow Rate 2 11/08/22 07:15 11/07/22 11/08/22 11/08/22 22:59 06:59 14:59 Intake Total 1090 / 1140 799.333 / 1939.333 480 / 480 Output Total 1999 / 1999 1100 / 3100 600 / 600 Balance -910 / -860 -300.667 / -1160.667 -120 / -120 Weight last 48 hrs Weight 72.938 kg Weight 72.575 kg Physical Exam Narrative: Daughter at bedside. Const: COMMON NORMALS: patient oriented x3 and alert GENERAL APPEARANCE: cooperative ORIENTATION/CONSCIOUSNESS: Yes awake; not confused HENMT: OTHER: Dry MM Neck/C-Spine: COMMON NORMALS: no JVD Resp: COMMON NORMALS: normal respiratory effort and clear to auscultation bilaterally AUSCULTATION: clear to auscultation bilaterally Cardio: COMMON NORMALS: no JVD, regular rhythm, S1 normal heart sound present, S2 normal heart sound present and No murmurs present (Cardio) RHYTHM: regular rhythm HEART SOUNDS: S1 normal heart sound present and S2 normal heart sound present GI: COMMON NORMALS: Normal to inspection, nondistended, normoactive bowel sounds present, Soft to palpation and non-tender PALPATION: Yes Soft to palpation Extremity: COMMON NORMALS: no joint enlargement and no pedal edema Neuro: COMMON NORMALS: patient oriented x3 and moves all extremities SENSORIUM/ORIENTATION: Yes alert OTHER: Skin: COMMON NORMALS: no rashes or lesions noted GENERAL SKIN EXAM: no rashes or lesions noted Urinary Catheter Management: Sanders: Cath Placed During This Visit: yes Reason for Continuing Indwelling Catheter: Acute Urinary Retention or Obstructio n Urinary Catheter Date of Insertion: 11/01/22 Urinary Catheter Time of Insertion: 00:33 Data 11/07/22 03:35 11/08/22 05:04 A&P Assessment and plan (1) Sepsis: PICC line could not be placed yesterday. Place PICC line if available today or tomorrow. Daughter is also now here to learn how to give infusions which will be continued after discharge. No growth on repeat cultures. No vegetation on PAT Follow-up pending repeat cultures confirm clearance of bacteremia. Continue empiric antibiotic coverage with ceftriaxone, vancomycin. PICC line once able to. Follow-up blood culture ID and sensitivities. Group g strep on gram stain. Septic thrombophlebitis, probably less likely although could not entirely exclude possible bacterial meningitis. L4 compression fracture appears uncomplicated, lower likelihood but not entirely excluded is early discitis but again early discitis cannot be 100% excluded. Discussed also presence of the thrombus in IVC again as well as again considering anticoagulation and its benefits and risks and her condition. Withhold sertraline so as not to increase bleeding risk. Prolonged antibiotic course is anticipated with duration of at least 6 weeks, likely with ceftriaxone 1 g daily follow-up repeat blood cultures for clearance before insertion of PICC line. Appreciated results of head CT, right ankle CT. CT abdomen pelvis obtained as well, incidentally noted prominent atherosclerotic vascular changes, again noted compression fracture, but no other localized findings that may suggest other focus of infection. Sepsis resolving. Resolved persistent confusion, recurrent low-grade fever on admission. On presentation leukocytosis 30,000. Bacteremia with 2/4 bottles gram-positive cocci reported on blood culture. Unclear if this may be contaminant, culture repeated. In case of your bacteremia source unclear. Did have hospitalization recently. No port or PICC line. In terms of foreign bodies had right ankle fracture in the past and has some hardware there. Imaged with CT, no appearance of infection around the hardware or loose hardware. Does appear to have swelling and bruising of the right antecubital fossa with superficial thrombophlebitis. Has been complaining of back pain recently, noted L4 compression fracture, 5 mm retropulsion causing severe central canal stenosis. No appearance of hydrocephalus. Does not appear like discitis, or if he has discitis is very early. Follow-up with infectious disease. Chest x-ray not suggestive of bacterial pneumonia. UA otherwise unremarkable no report of GI symptoms. No diarrhea. (2) Acute encephalopathy: Encephalopathy now appears largely resolved with resolving sepsis. Suspected acute encephalopathy secondary to severe sepsis, probably less likely although could not entirely exclude possible bacterial meningitis. Group B strep bacteremia noted. Suspected septic thrombophlebitis. No intracardiac shunt TTE bubble study. Unlikely Tamiflu induced encephalopathy and delirium. She is done with Tamiflu. Less likely encephalopathy secondary to steroid, possible, she will be done with prednisone now. Hold sertraline. PT, OT assessment. (3) Elevated d-dimer: Once PICC line in place transition to Eliquis for PE and DVT. PE, IVC defect concerning for localized thrombus. On anticoagulation with heparin drip. Also noted superficial thrombophlebitis cephalic vein and right antecubital fossa. (4) High anion gap metabolic acidosis: Resolved. Euglycemic ketoacidosis. Received 2 doses 10 units Lantus. Stop IVF. Continue sliding scale insulin. Consistent carbohydrate diet. (5) Hypokalemia: Replace potassium and magnesium. Follow-up level. (6) SRINATH (acute kidney injury): Resolved with fluid challenge. DC IVF. Reassess renal function. Hold ARB. (7) Sinus tachycardia: Resolved. Suspect secondary to dehydration, DKA, possibly sepsis. PE. (8) Hyperglycemia: Prediabetes or may be developing diabetes, A1c 6.1%. Euglycemic ketoacidosis resolved. Stop LR. Continue sliding scale insulin. Consistent carbohydrate diet. (9) Troponin level elevated: Mild elevation of bili with positive delta. Suspect demand schema secondary sepsis, however, may be unmasking underlying coronary disease. TTE EF 70%, grade 1 diastolic function. No RWMA. Would benefit down the road from further risk stratification with outpatient stress test. Currently on anticoagulation. (10) Compression fracture: Has been complaining of back pain recently, noted L4 compression fracture, 5 mm retropulsion causing severe central canal stenosis. No appearance of hydrocephalus. Does not appear like discitis, or if he has discitis is very early. Consider additional follow-up imaging with contrast CT or MRI. Lidocaine patch. Follow-up with infectious disease. (11) Acquired abnormality of inferior vena cava: 0.9 x 1.3 x 1.5 cm partial filling defect in the posterior distal inferior vena cava, at the L4 level. The other visualized large deep veins appear patent. Appearance of possible thrombus. Discussed risk of bleeding, resume anticoagulation due to central venous thrombosis. (12) Anemia: Hemoglobin improved. May have been dilutional with rehydration after dehydration on presentation, Check Hemoccult Noted iron deficiency anemia. Will need iron supplementation and further work- up that includes endoscopy to exclude occult malignancy after discharge. No retroperitoneal/psoas hematoma on CT. (13) Prediabetes: Plan Diarrhea: C. difficile requested. Left arm paresthesia: No DVT on duplex ultrasound. HTN: Olmesartan on hold for now due to SRINATH. Dysphagia: Continue dysphagia diet. ST reassessment. Reported influenza A during prior hospitalization. Off isolation. Attestations Medical Necessity Statement*: Patient has been discharged on long-term IV antibiotic course for next 6 weeks for possibility of early discitis in setting of bacteremia and medication supply has been made available now. 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
--- NOTE | 2022-11-08 16:16 | PC.OT ---
OT TREATMENT HELD TODAY DUE TO SCHEDULED PATIENT DISCHARGE
--- NOTE | 2022-11-24 08:34 | PC.SOCIAL ---
Lashay Spencer called and asked that discharge summary and medication list be faxed to . Info faxed at this time.
== END 2022-11-08 19:00 | disposition home or self-care (01) | DRG 871 ==
LOC: ER 18:44 → ICU 20:09 → MEDSURG 11-03 11:16
PROVIDERS: Internal Medicine; Internal Medicine Cardiovascular Disease; Admitting Provider Internal Medicine; Emergency Provider Family Medicine; PCP Nurse Practitioner Family; Visit Provider Student in an Organized Health Care Education/Training Program
PROC: (CPT 93312; principal; 2022-11-05 13:00)
DX: A41.9 Sepsis, unspecified organism (principal); G93.41 Metabolic encephalopathy; I26.99 Other pulmonary embolism without acute cor pulmonale; I82.220 Acute embolism and thrombosis of inferior vena cava; M80.88XA Other osteoporosis with current pathological fracture, vertebra(e), initial encounter for fracture; E87.20 Acidosis, unspecified; N17.9 Acute kidney failure, unspecified; I80.8 Phlebitis and thrombophlebitis of other sites; E87.6 Hypokalemia; R73.03 Prediabetes; B95.4 Other streptococcus as the cause of diseases classified elsewhere; D50.9 Iron deficiency anemia, unspecified; R19.7 Diarrhea, unspecified; R20.2 Paresthesia of skin; R13.10 Dysphagia, unspecified; E86.0 Dehydration; Z87.891 Personal history of nicotine dependence; Z88.2 Allergy status to sulfonamides; Z83.3 Family history of diabetes mellitus; Z99.81 Dependence on supplemental oxygen; E78.5 Hyperlipidemia, unspecified; I10 Essential (primary) hypertension; K21.9 Gastro-esophageal reflux disease without esophagitis; F32.A Depression, unspecified; J44.9 Chronic obstructive pulmonary disease, unspecified; Z79.51 Long term (current) use of inhaled steroids; Z79.82 Long term (current) use of aspirin
CPT/HCPCS: 36415; 36416; 36569; 36592; 36600; 51702; 70450; 71045; 71275; 72129; 72132; 73701; 74177; 76882; 80048; 80051; 80053; 80202; 81003; 82009; 82330; 82728; 82805; 82962; 83036; 83540; 83550; 83605; 83735; 84132; 84484; 85018; 85025; 85049; 85378; 85730; 87040; 87150; 87186; 87205; 87493; 87506; 87635; 92523; 92526; 92610; 93005; 93312; 93320; 93325; 93970; 93971; 94640; 94760; 96365; 96367; 96372; 97110; 97116; 97162; 97167; 97530; 97535; 99285; C8929; C9113; G0378; J0131; J0692; J0696; J1450; J1644; J1650; J1815; J1940; J2060; J2270; J2704; J2920; J3370; J3475; J3480; J3490; J7030; J7050; J7120; J7626; J7799; Q9967

== ENCOUNTER 2022-11-10 23:46 | Emergency (ER) | payer MEDICARE, SELFPAY ==
--- NOTE | 2022-11-10 23:49 | XRR_ITS ---
PROCEDURE INFORMATION: Exam: XR Chest Exam date and time: 11/11/2022 12:05 AM Age: 72 years old Clinical indication: Other: Confusion; Patient HX: Family states patient is confused. Discharged from hospital two days ago for flu/pneumonia. Picc line in place. ; Additional info: AMS TECHNIQUE: Imaging protocol: Radiologic exam of the chest. Views: 1 view. COMPARISON: CR (CHEST, ) 11/07/2022 2:37 PM FINDINGS: Tubes, catheters and devices: The left arm PICC still ends in the mid superior vena cava. Lungs: The lungs Room main clear except for minimal symmetric bibasilar dependent atelectasis. Pleural spaces: Unremarkable. No pleural effusion. No pneumothorax. Heart/Mediastinum: A left upper paracentral mediastinal vascular stent is unchanged. Bones/joints: Unremarkable. XR/XR chest 1V portable [id number] IMPRESSION: No change, persisting small bibasilar atelectasis
--- NOTE | 2022-11-10 23:49 | CTR_ITS ---
PROCEDURE INFORMATION: Exam: CT Head Without Contrast Exam date and time: 11/11/2022 12:18 AM Age: 72 years old Clinical indication: Altered mental status/memory loss; Confusion or disorientation; Patient HX: Family states patient is confused. Discharged from hospital two days ago for flu/pneumonia. Picc line in place. ; Additional info: AMS TECHNIQUE: Imaging protocol: Computed tomography of the head without contrast. Radiation optimization: All CT scans at this facility use at least one of these dose optimization techniques: automated exposure control; mA and/or kV adjustment per patient size (includes targeted exams where dose is matched to clinical indication); or iterative reconstruction. COMPARISON: CT head wo con* [id number] 11/01/2022 12:37 PM RADIATION DOSE METRICS: Total DLP (mGy-cm): 967.08 FINDINGS: Brain: There is no CT evidence for acute ischemia, mass or hemorrhage. No extra-axial fluid collection, midline shift or hydrocephalus. Mild sulcal widening is unchanged and is due to white matter volume loss. Cerebral ventricles: See Brain finding. Paranasal sinuses: Visualized sinuses are unremarkable. No fluid levels. Mastoid air cells: The paranasal sinuses and mastoid air cells are clear. Bones/joints: Unremarkable. No acute fracture. Soft tissues: Unremarkable. CT/CT head wo con* [id number] IMPRESSION: No change, no significant findings
--- NOTE | 2022-11-10 23:51 | ECG_ITS ---
[facility] Test Date: 2022-11-11 Pat Name: Mildred Graham Department: Room: Gender: Female Bath Steward: : 1950 Requested By: Francesca Mendez Order Number: [id number] Norma MD: Sharad Almonte M.D. 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 [id number]
[2022-11-10 23:55] VITALS: BP 153/74; PULSE 102; RESP 16; TEMP 37.4; O2SAT 94; BMI 28.3
[2022-11-11] VITALS: BP 118/77; PULSE 102; RESP 18; O2SAT 93
[2022-11-11 00:19] LABS: Basophils % 0.3 %; Eosinophils # 0.1 10^3/uL (0.0-0.8); Hematocrit 34.2 % (37.0-47.0); Hemoglobin 10.6 g/dL (11.5-15.3); Lymphocytes # 0.9 10^3/uL (0.8-4.8); Lymphocytes % 8.9 %; Mean Corpuscular Hemoglobin 23.2 pg (28.0-34.0); Mean Corpuscular Volume 74.8 fl (81-99); Mean Platelet Volume 11.5 fL (7.4-10.4); Monocytes # 0.9 10^3/uL (0.2-0.9); Monocytes % 9.3 %; Neutrophils # 7.68 10^3/uL (1.8-7.7); Nucleated Red Blood Cells % 0 %; Platelet Count 309 10^3/cmm (130-400); Red Blood Count 4.57 10^6/uL (4.1-5.3); Red Cell Distribution Width 16.4 % (12.1-15.1); White Blood Count 9.6 10^3/uL (4.0-10.0)
--- NOTE | 2022-11-11 00:22 | ED_ITS ---
HPI - Altered Mental Status General: Chief Complaint: Altered Mental Status Stated Complaint: AMS Time Seen by Provider: 11/10/22 23:49 Source: patient and EMS Mode of arrival: EMS Limitations: no limitations History of Present Illness: 72-year-old female who recently been discharged from the hospital here 2 days ago having the flu and pneumonia per EMS family states she had some intermittent confusion since being home here she is able answer all my questions appropriately she knows the date the year her name she states that she feels fine currently has no complaints at this time. She has had a continuing cough. Associated symptoms: Deny depression Review of Systems Const: Denies: fever(s), chills, body aches or change in appetite Eyes: Denies: blurry vision or eye discomfort ENMT: Denies: throat pain or dental pain Card: Denies: chest pain Resp: Denies: dyspnea GI: Denies: abdominal pain, nausea, vomiting or diarrhea : Denies: dysuria Musc: Denies: neck pain or back pain Skin/Breast: Denies: rash Neuro: Reports: confusion; Denies: headache(s) Psych: Denies: depression Steve/Lymph: Denies: easy bruising All/Imm: Denies: urticaria PFSH ED PFSH: Medical History COPD (chronic obstructive pulmonary disease) Depression GERD (gastroesophageal reflux disease) 1 para 1 Hyperlipidemia Hypertension Osteoporosis Post-traumatic arthritis of right ankle Stress incontinence in female Vitamin D deficiency Surgical History History of cataract surgery bialteral History of elbow surgery left, due to nerve entrapment History of tubal ligation Status post open reduction and internal fixation (ORIF) of fracture (12/2020) Dr. Lao; right pilon fracture, right fibular fracture Family History Father Cancer Type of cancer not known (unknown primary), but was in the lungs Mother , age 54 from respiratory disease, COPD, heavy smoker Lung disease Other Diabetes Social History Smoking and tobacco status: former smoker Alcohol intake: current Alcohol intake frequency: holidays/special occasions only Lives independently: Yes Household members: none Physical Exam Const: COMMON NORMALS: no acute distress, average body habitus and patient oriented x3 HENMT: COMMON NORMALS: normocephalic and atraumatic HEAD & SCALP: normocephalic and atraumatic Eye: COMMON NORMALS: Equal, round and reactive pupils present PUPIL: Yes Equal, round and reactive pupils present Neck/C-Spine: COMMON NORMALS: full ROM and supple Chest: COMMONS NORMALS: normal inspection of the chest Resp: COMMON NORMALS: normal respiratory effort, No retractions and No use of accessory muscles AUSCULTATION: rales Cardio: COMMON NORMALS: regular rate and regular rhythm RATE: regular rate RHYTHM: regular rhythm GI: COMMON NORMALS: Normal to inspection, nondistended, normoactive bowel sounds present, Soft to palpation and non-tender PALPATION: Yes Soft to palpation Extremity: COMMON NORMALS: normal to inspection Neuro: COMMON NORMALS: patient oriented x3 Psych: COMMON NORMALS: mental status grossly normal, Normal thought process present and cooperative THOUGHT PROCESS: Normal thought process present Skin: COMMON NORMALS: no rashes or lesions noted GENERAL SKIN EXAM: no rashes or lesions noted Course Vital Signs: Vital signs: Vital Signs Temperature 99.3 F 11/10/22 23:55 Pulse Rate 82 11/11/22 01:21 Respiratory Rate 20 H 11/11/22 01:21 Blood Pressure 160/78 11/11/22 01:21 Pulse Oximetry 98 11/11/22 01:21 Oxygen Delivery Me thod 11/11/22 01:00 MDM - Altered Mental Status Medical Decision Making Patient presents here with supposed confusion at home here she is able answer all my question appropriately blood work head CT are normal she is stable for discharge back with her family she is to follow-up as scheduled return if worsening Lab Data 11/11/22 00:12 11/11/22 00:12 Radiology Impressions Chest X-Ray 11/10/22 23:49 IMPRESSION: No change, persisting small bibasilar atelectasis Head CT 11/10/22 23:49 IMPRESSION: No change, no significant findings Laboratory Results WBC 9.6 10^3/uL (4.0-10.0) 11/11/22 00:12 RBC 4.57 10^6/uL (4.1-5.3) 11/11/22 00:12 Hgb 10.6 g/dL (11.5-15.3) L 11/11/22 00:12 Hct 34.2 % (37.0-47.0) L 11/11/22 00:12 MCV 74.8 fl (81-99) L 11/11/22 00:12 MCH 23.2 pg (28.0-34.0) L 11/11/22 00:12 MCHC 31.0 g/dL (30.0-36.0) 11/11/22 00:12 RDW 16.4 % (12.1-15.1) H 11/11/22 00:12 Plt Count 309 10^3/cmm (130-400) 11/11/22 00:12 MPV 11.5 fL (7.4-10.4) H 11/11/22 00:12 Neut % (Auto) 80.0 % 11/11/22 00:12 Lymph % (Auto) 8.9 % 11/11/22 00:12 Sabine % (Auto) 9.3 % 11/11/22 00:12 Eos % (Auto) 1.0 % 11/11/22 00:12 Baso % (Auto) 0.3 % 11/11/22 00:12 Neut # (Auto) 7.68 10^3/uL (1.8-7.7) 11/11/22 00:12 Lymph # (Auto) 0.9 10^3/uL (0.8-4.8) 11/11/22 00:12 Sabine # (Auto) 0.9 10^3/uL (0.2-0.9) 11/11/22 00:12 Eos # (Auto) 0.1 10^3/uL (0.0-0.8) 11/11/22 00:12 Baso # (Auto) 0.0 10^3/uL (0.0-0.1) 11/11/22 00:12 Nucleated RBC % (auto) 0 % 11/11/22 00:12 Nucleated RBCs # 0.0 /100WBC 11/11/22 00:12 PT 14.00 SECONDS (12.1-14.9) 11/11/22 00:12 INR 1.05 (0.8-1.2) 11/11/22 00:12 Sodium 136 mmol/L (136-145) 11/11/22 00:12 Potassium 3.9 mmol/L (3.5-5.1) 11/11/22 00:12 Chloride 99 mmol/L (98-107) 11/11/22 00:12 Carbon Dioxide 31 mmol/L (22-29) H 11/11/22 00:12 Anion Gap 9.9 (5-19) 11/11/22 00:12 BUN 8 mg/dL (8-23) 11/11/22 00:12 Creatinine 0.5 mg/dL (0.5-0.9) 11/11/22 00:12 GFR Calculation Not Reportable 11/11/22 00:12 Glucose 165 mg/dL (65-115) H 11/11/22 00:12 Calculated Osmolality 284 mOsm/kg (285-295) L 11/11/22 00:12 Lactate 0.9 mmol/L (0.5-2.2) 11/11/22 00:12 Calcium 9.4 mg/dL (8.5-10.5) 11/11/22 00:12 Magnesium 1.8 mg/dL (1.7-2.3) 11/11/22 00:12 Total Bilirubin 0.2 mg/dL (0.15-1.2) 11/11/22 00:12 AST 23 U/L (0-32) 11/11/22 00:12 ALT 22 U/L (0-33) 11/11/22 00:12 Alkaline Phosphatase 67 U/L (35-105) 11/11/22 00:12 Troponin T Baseline 12 ng/L (0-10) H 11/11/22 00:12 Total Protein 6.6 g/dL (6.6-8.7) 11/11/22 00:12 Albumin 3.0 g/dL (3.5-5.2) L 11/11/22 00:12 Globulin 3.6 g/dL (1.3-4.6) 11/11/22 00:12 TSH 4.22 uIU/mL (0.27-4.20) H 11/11/22 00:12 Urine Color Yellow (Yellow) 11/11/22 00:33 Urine Appearance Clear (CLEAR) 11/11/22 00:33 Urine pH 6.5 (5-7) 11/11/22 00:33 Ur Specific Dalton 1.020 (1.005-1.030) 11/11/22 00: Urine Protein Trace (Negative) 11/11/22 00: Urine Glucose (UA) Norm (Normal) 11/11/22 00: Urine Ketones 1+ (Negative) H 11/11/22 00: Urine Blood 2+ (Negative) H 11/11/22 00: Urine Nitrate Negative (Negative) 11/11/22 00: Urine Bilirubin Neg (Negative) 11/11/22 00: Urine Urobilinogen Norm mg/dL (Negative) 11/11/22 00: Ur Leukocyte Esterase Negative (Negative) 11/11/22 00: Urine RBC 10-15 /hpf (0-2) H 11/11/22 00: Urine WBC None /hpf (0-5) 11/11/22 00: Ur Squamous Epith Cells 0-4 /hpf (0-5) H 11/11/22 00: Ur Renal Epithelial Cell 0-2 /hpf 11/11/22 00: Amorphous Sediment 1+ /hpf 11/11/22 00: Urine Bacteria None /hpf (NONE) 11/11/22 00: Urine Mucus 2+ /hpf 11/11/22 00:33 Discharge Plan Discharge Patient Disposition: Home Clinical Impression: Altered mental status Condition: Stable Prescriptions: No Action aspirin [Adult Aspirin Regimen] 81 mg tablet,delayed release (DR/EC) 81 mg PO EVERY OTHER DAY albuterol sulfate 2.5 mg /3 mL (0.083 %) solution for nebulization 2.5 mg INHALATION Q4H PRN (Reason: shortness of breath or wheezing) Qty: 180 3RF acetaminophen [Arthritis Pain Relief (acetam)] 650 mg tablet extended release 650 mg PO Q12H calcium carbonate-vitamin D3 [Calcium 600 with Vitamin D3] 600 mg-12.5 mcg (500 unit) capsule 1 cap PO DAILY omeprazole 20 mg capsule,delayed release(DR/EC) 20 mg PO DAILY Qty: 90 3RF pravastatin 40 mg tablet 40 mg PO DAILY amlodipine 10 mg tablet 10 mg PO DAILY olmesartan 5 mg tablet 5 mg PO DAILY Pulmicort Flexhaler 180 mcg/actuation aerosol powdr breath activated 1 inh inhalation BID 30 Days Qty: 1 0RF albuterol sulfate 90 mcg/actuation HFA aerosol inhaler 2 puff inhalation Q4H PRN (Reason: Shortness Of Breath Or Wheezing) ceftriaxone 1 gram recon soln 2 g IM Q24H Qty: 35 0RF potassium chloride 20 mEq tablet extended release 20 meq PO DAILY Qty: 30 0RF apixaban 5 mg (74 tabs) tablets,dose pack See Rx Instructions .ROUTE .COMPLEX Qty: 74 0RF Rx Instructions: 10 mg twice daily for 7 days then 5 mg twice daily ferrous sulfate 325 mg (65 mg iron) tablet 325 mg PO EVERY OTHER DAY Qty: 90 0RF lidocaine 5 % Adhesive Patch,Medicated 1 patch topical [id number] Qty: 14 0RF acetaminophen 325 mg Tablet 650 mg PO Q6H PRN (Reason: Mild/Mod Pain Or Temp >/= 101) Qty: 90 0RF baclofen 10 mg Tablet 10 mg PO QID PRN (Reason: Muscle Spasms) Qty: 30 0RF Discharge Orders: Discharge ED (Routine); Ordered 11/11/22 Ordered By: Francesca Mendez Referrals: Melanie Joyce NP [Primary Care Provider] - 1-3 days Discharge Diet: Advance as tolerated Discharge Activity: Resume usual activity Patient Instructions: Confusion Coding Level of Care Code 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
[2022-11-11 00:40] LABS: INR 1.05 (0.8-1.2)
[2022-11-11 00:52] LABS: Lactate (Lactic Acid level) 0.9 mmol/L (0.5-2.2)
[2022-11-11 00:54] LABS: Troponin(5th) Baseline 12 ng/L (0-10)
[2022-11-11 00:57] LABS: Alanine Aminotransferase 22 U/L (0-33); Alkaline Phosphatase 67 U/L (35-105); Anion Gap 9.9 (5-19); Blood Urea Nitrogen 8 mg/dL (8-23); Calcium 9.4 mg/dL (8.5-10.5); Carbon Dioxide 31 mmol/L (22-29); Chloride 99 mmol/L (98-107); Creatinine Clr Calc Pharmacy 61.5723; Globulin 3.6 g/dL (1.3-4.6); Glucose 165 mg/dL (65-115); Magnesium 1.8 mg/dL (1.7-2.3); Osmolality Calculated 284 mOsm/kg (285-295); Sodium 136 mmol/L (136-145); Total Bilirubin 0.2 mg/dL (0.15-1.2); Total Protein 6.6 g/dL (6.6-8.7)
[2022-11-11 00:58] LABS: Aspartate Amino Transferase 23 U/L (0-32); Potassium 3.9 mmol/L (3.5-5.1)
[2022-11-11 01:00] VITALS: BP 160/78; PULSE 82; RESP 20; O2SAT 98
[2022-11-11 01:02] LABS: Thyroid Stimulating Hormone 4.22 uIU/mL (0.27-4.20)
[2022-11-11 01:21] VITALS: BP 160/78; PULSE 82; RESP 20; O2SAT 98
[2022-11-11 01:22] LABS: Add Urine Microscopic? YES; Bilirubin Urine Neg (Negative); Blood Urine 2+ (Negative); Glucose Urine UA Norm (Normal); Ketones Urine 1+ (Negative); Leukocyte Esterase Urine Negative (Negative); Nitrate Urine Negative (Negative); Protein Urine Trace (Negative); Urine Appearance Clear (CLEAR); Urine Color Yellow (Yellow); Urobilinogen Urine Norm (Negative); pH Urine 6.5 (5-7)
[2022-11-11 01:23] LABS: Add Urine Culture? No; Amorphous Sediment Urine 1+ /hpf; Mucus Urine 2+ /hpf; Renal Epithelial Cells Urine 0-2 /hpf; Squamous Epithelial Cell Urine 0-4 /hpf (0-5)
== END 2022-11-11 01:40 | disposition home or self-care (01) ==
PROVIDERS: Emergency Provider Emergency Medicine; PCP Nurse Practitioner Family
DX: R41.82 Altered mental status, unspecified (principal); Z79.82 Long term (current) use of aspirin; Z87.891 Personal history of nicotine dependence; J44.9 Chronic obstructive pulmonary disease, unspecified; E78.5 Hyperlipidemia, unspecified; I10 Essential (primary) hypertension
CPT/HCPCS: 70450; 71045; 80053; 81001; 83605; 83735; 84443; 84484; 85025; 85610; 93005; 99285

== ENCOUNTER → 2022-11-15 09:53 | Day surgery (SDC) | payer MEDICARE, SELFPAY ==
[2022-11-15 10:24] LABS: Basophils % 0.5 %; Eosinophils # 0.1 10^3/uL (0.0-0.8); Eosinophils % 1.2 %; Hematocrit 34.4 % (37.0-47.0); Hemoglobin 10.5 g/dL (11.5-15.3); Lymphocytes # 0.7 10^3/uL (0.8-4.8); Lymphocytes % 9.3 %; Mean Corpuscular HGB Conc 30.5 g/dL (30.0-36.0); Mean Corpuscular Hemoglobin 23.4 pg (28.0-34.0); Mean Corpuscular Volume 76.6 fl (81-99); Mean Platelet Volume 10.8 fL (7.4-10.4); Monocytes # 0.6 10^3/uL (0.2-0.9); Monocytes % 7.2 %; Neutrophils # 6.32 10^3/uL (1.8-7.7); Neutrophils % 81.4 %; Nucleated Red Blood Cells % 0 %; Platelet Count 335 10^3/cmm (130-400); Red Blood Count 4.49 10^6/uL (4.1-5.3); Red Cell Distribution Width 16.2 % (12.1-15.1); White Blood Count 7.8 10^3/uL (4.0-10.0)
[2022-11-15 10:45] LABS: Alanine Aminotransferase 13 U/L (0-33); Albumin Level 3.3 g/dL (3.5-5.2); Alkaline Phosphatase 69 U/L (35-105); Blood Urea Nitrogen 9 mg/dL (8-23); Calcium 9.3 mg/dL (8.5-10.5); Carbon Dioxide 28 mmol/L (22-29); Chloride 98 mmol/L (98-107); Globulin 4.3 g/dL (1.3-4.6); Glucose 118 mg/dL (65-115); Osmolality Calculated 284 mOsm/kg (285-295); Sodium 137 mmol/L (136-145); Total Bilirubin 0.2 mg/dL (0.15-1.2); Total Protein 7.6 g/dL (6.6-8.7)
[2022-11-15 10:48] LABS: Aspartate Amino Transferase 27 U/L (0-32)
[2022-11-15 11:30] VITALS: BP 150/75; PULSE 111; RESP 18; TEMP 36.6; O2SAT 92
--- NOTE | 2022-11-15 11:33 | PC.SOCIAL ---
Patient has returned for her dressing change and lab draw. Per Tori in GI lab patient's daughter is overwhelmed and would like for patient to go to SNF. Tori says patient is agreeable @ this time as well. Discussed options and as of Tuesday. [facility] due to [facility], [facility] did not have beds available. New Referral faxed to [facility] [place] and called and spoke to Shira and explained the situation.
--- NOTE | 2022-11-15 12:47 | PC.NURSE ---
This nurse reached out to Shira at [facility] to make sure pt information was received. Information has been received and sent to team for determination of placement. Bibiana, pt daughter, notified.
[2022-11-23 09:12] LABS: Basophils % 0.2 %; Eosinophils # 0.1 10^3/uL (0.0-0.8); Eosinophils % 1.1 %; Hematocrit 35.4 % (37.0-47.0); Hemoglobin 10.9 g/dL (11.5-15.3); Lymphocytes % 19.5 %; Mean Corpuscular HGB Conc 30.8 g/dL (30.0-36.0); Mean Corpuscular Hemoglobin 22.8 pg (28.0-34.0); Mean Corpuscular Volume 74.1 fl (81-99); Mean Platelet Volume 10.4 fL (7.4-10.4); Monocytes # 0.5 10^3/uL (0.2-0.9); Monocytes % 10.1 %; Neutrophils # 3.61 10^3/uL (1.8-7.7); Neutrophils % 68.9 %; Nucleated Red Blood Cells % 0 %; Platelet Count 313 10^3/cmm (130-400); Red Blood Count 4.78 10^6/uL (4.1-5.3); Red Cell Distribution Width 15.4 % (12.1-15.1); White Blood Count 5.2 10^3/uL (4.0-10.0)
[2022-11-23 09:34] LABS: Alanine Aminotransferase 18 U/L (0-33); Albumin Level 3.6 g/dL (3.5-5.2); Alkaline Phosphatase 71 U/L (35-105); Blood Urea Nitrogen 7 mg/dL (8-23); Calcium 9.4 mg/dL (8.5-10.5); Carbon Dioxide 30 mmol/L (22-29); Chloride 97 mmol/L (98-107); Globulin 4.3 g/dL (1.3-4.6); Glucose 97 mg/dL (65-115); Osmolality Calculated 284 mOsm/kg (285-295); Sodium 138 mmol/L (136-145); Total Bilirubin 0.2 mg/dL (0.15-1.2); Total Protein 7.9 g/dL (6.6-8.7)
[2022-11-23 09:39] LABS: Anion Gap 14.6 (5-19); Aspartate Amino Transferase 25 U/L (0-32); Creatinine Clr Calc Pharmacy 61.5723; Potassium 3.6 mmol/L (3.5-5.1)
== END ==
PROVIDERS: PCP Nurse Practitioner Family; Visit Provider Internal Medicine
DX: A41.9 Sepsis, unspecified organism (principal)
CPT/HCPCS: 36592; 80053; 85025; J1642

== ENCOUNTER → 2022-11-23 08:43 | Day surgery (SDC) | payer MEDICARE, SELFPAY ==
[2022-11-23 09:00] VITALS: BP 98/78; PULSE 108; RESP 18; TEMP 36.6; O2SAT 91
== END ==
PROVIDERS: PCP Nurse Practitioner Family; Visit Provider Internal Medicine
DX: A41.9 Sepsis, unspecified organism (principal)
CPT/HCPCS: 36592; J1642

== ENCOUNTER 2022-12-20 12:18 | Outpatient (RCR) | payer MEDICARE, SELFPAY ==
[2022-11-30 08:55] VITALS: BP 117/65; PULSE 90; RESP 18; TEMP 37; O2SAT 96
[2022-11-30 09:21] LABS: Basophils % 0.4 %; Eosinophils # 0.1 10^3/uL (0.0-0.8); Eosinophils % 0.7 %; Hematocrit 34.7 % (37.0-47.0); Hemoglobin 10.6 g/dL (11.5-15.3); Lymphocytes # 1.3 10^3/uL (0.8-4.8); Lymphocytes % 12.5 %; Mean Corpuscular HGB Conc 30.5 g/dL (30.0-36.0); Mean Corpuscular Hemoglobin 22.7 pg (28.0-34.0); Mean Corpuscular Volume 74.3 fl (81-99); Mean Platelet Volume 10.9 fL (7.4-10.4); Monocytes # 0.8 10^3/uL (0.2-0.9); Monocytes % 7.4 %; Neutrophils % 78.6 %; Nucleated Red Blood Cells % 0 %; Platelet Count 459 10^3/cmm (130-400); Red Blood Count 4.67 10^6/uL (4.1-5.3); Red Cell Distribution Width 15.9 % (12.1-15.1); White Blood Count 10.7 10^3/uL (4.0-10.0)
[2022-11-30 09:43] LABS: Alanine Aminotransferase 11 U/L (0-33); Albumin Level 3.7 g/dL (3.5-5.2); Alkaline Phosphatase 68 U/L (35-105); Aspartate Amino Transferase 17 U/L (0-32); Blood Urea Nitrogen 7 mg/dL (8-23); Calcium 10.2 mg/dL (8.5-10.5); Carbon Dioxide 28 mmol/L (22-29); Chloride 98 mmol/L (98-107); Creatinine Clr Calc Pharmacy 61.5723; Glucose 81 mg/dL (65-115); Osmolality Calculated 285 mOsm/kg (285-295); Sodium 139 mmol/L (136-145); Total Bilirubin 0.2 mg/dL (0.15-1.2); Total Protein 7.7 g/dL (6.6-8.7)
[2022-11-30 09:45] LABS: Anion Gap 16.2 (5-19); Potassium 3.2 mmol/L (3.5-5.1)
--- NOTE | 2022-11-30 10:01 | PC.NURSE ---
Pt daughter, Javier, states she has not heard from [facility] regarding follow up. This nurse left message with Kylie Joyce's nurse regarding continuation of care and need for order to dc PICC line on 12/13/22 when antibiotics complete. This nurse also reached out to Dr. Razo's nurse, with infection control, to see if follow up is needed.
[2022-12-06 10:00] VITALS: BP 108/82; PULSE 92; RESP 18; TEMP 36.3; O2SAT 92
[2022-12-06 10:25] LABS: Basophils % 0.5 %; Eosinophils # 0.1 10^3/uL (0.0-0.8); Eosinophils % 1.1 %; Hematocrit 36.1 % (37.0-47.0); Hemoglobin 10.8 g/dL (11.5-15.3); Lymphocytes # 1.4 10^3/uL (0.8-4.8); Lymphocytes % 17.3 %; Mean Corpuscular HGB Conc 29.9 g/dL (30.0-36.0); Mean Corpuscular Hemoglobin 22.3 pg (28.0-34.0); Mean Corpuscular Volume 74.4 fl (81-99); Mean Platelet Volume 10.7 fL (7.4-10.4); Monocytes # 0.8 10^3/uL (0.2-0.9); Monocytes % 9.4 %; Neutrophils % 71.4 %; Nucleated Red Blood Cells % 0 %; Platelet Count 402 10^3/cmm (130-400); Red Blood Count 4.85 10^6/uL (4.1-5.3); Red Cell Distribution Width 16.3 % (12.1-15.1)
[2022-12-06 10:45] LABS: Alanine Aminotransferase 13 U/L (0-33); Alkaline Phosphatase 65 U/L (35-105); Blood Urea Nitrogen 6 mg/dL (8-23); Calcium 9.6 mg/dL (8.5-10.5); Carbon Dioxide 29 mmol/L (22-29); Chloride 99 mmol/L (98-107); Globulin 3.3 g/dL (1.3-4.6); Glucose 94 mg/dL (65-115); Osmolality Calculated 283 mOsm/kg (285-295); Sodium 138 mmol/L (136-145); Total Bilirubin 0.2 mg/dL (0.15-1.2); Total Protein 7.3 g/dL (6.6-8.7)
[2022-12-06 10:49] LABS: Creatinine Clr Calc Pharmacy 61.5723
[2022-12-06 10:50] LABS: Anion Gap 13.7 (5-19); Potassium 3.7 mmol/L (3.5-5.1)
[2022-12-06 10:51] LABS: Aspartate Amino Transferase 19 U/L (0-32)
[2022-12-13 10:45] VITALS: BP 143/92; PULSE 101; RESP 18; TEMP 36.1; O2SAT 96
[2022-12-13 11:02] LABS: Basophils % 0.4 %; Eosinophils # 0.1 10^3/uL (0.0-0.8); Eosinophils % 1.4 %; Hematocrit 35.5 % (37.0-47.0); Hemoglobin 10.7 g/dL (11.5-15.3); Lymphocytes # 1.5 10^3/uL (0.8-4.8); Lymphocytes % 21.1 %; Mean Corpuscular HGB Conc 30.1 g/dL (30.0-36.0); Mean Corpuscular Hemoglobin 22.4 pg (28.0-34.0); Mean Corpuscular Volume 74.3 fl (81-99); Mean Platelet Volume 10.7 fL (7.4-10.4); Monocytes # 0.7 10^3/uL (0.2-0.9); Monocytes % 10.7 %; Neutrophils # 4.58 10^3/uL (1.8-7.7); Neutrophils % 66.1 %; Nucleated Red Blood Cells % 0 %; Platelet Count 326 10^3/cmm (130-400); Red Blood Count 4.78 10^6/uL (4.1-5.3); White Blood Count 6.9 10^3/uL (4.0-10.0)
--- NOTE | 2022-12-13 11:15 | PC.NURSE ---
Pt to GI infusions for PICC dressing change and lab draw. Tonight will be her last dose of antibiotic. Pt will continue to get weekly PICC dressing changes until seen by Dr. Razo with Infectious disease 12/30/22.
[2022-12-13 11:20] LABS: Alanine Aminotransferase 19 U/L (0-33); Albumin Level 3.9 g/dL (3.5-5.2); Alkaline Phosphatase 71 U/L (35-105); Aspartate Amino Transferase 25 U/L (0-32); Blood Urea Nitrogen 7 mg/dL (8-23); Carbon Dioxide 29 mmol/L (22-29); Chloride 105 mmol/L (98-107); Globulin 3.4 g/dL (1.3-4.6); Glucose 100 mg/dL (65-115); Osmolality Calculated 288 mOsm/kg (285-295); Sodium 140 mmol/L (136-145); Total Bilirubin 0.2 mg/dL (0.15-1.2); Total Protein 7.3 g/dL (6.6-8.7)
[2022-12-13 11:21] LABS: Creatinine Clr Calc Pharmacy 61.5723
[2022-12-13 11:22] LABS: Anion Gap 9.7 (5-19); Potassium 3.7 mmol/L (3.5-5.1)
[2022-12-20 12:00] VITALS: BP 128/79; PULSE 104; RESP 18; TEMP 36.9; O2SAT 92
--- NOTE | 2022-12-20 12:00 | PC.NURSE ---
Pt to GI infusions for PICC dressing change. Pt antibiotics completed 12/13/22. PICC to stay in place with weekly maintenance until seen by Dr. Razo with infectious disease on 12/30/22.
== END 2022-12-28 23:59 | disposition home or self-care (01) ==
LOC: GILAB 12:18
PROVIDERS: PCP Nurse Practitioner Family; Visit Provider Internal Medicine
DX: A41.9 Sepsis, unspecified organism (principal)
CPT/HCPCS: 36592; 80053; 85025

== ENCOUNTER → 2022-12-30 14:30 | Outpatient (BNVA) | payer MEDICARE, SELFPAY | PROVIDERS: PCP Nurse Practitioner Family; Visit Provider Student in an Organized Health Care Education/Training Program | DX: M48.061 Spinal stenosis, lumbar region without neurogenic claudication (principal); A41.9 Sepsis, unspecified organism | CPT/HCPCS: 99204 ==

== ENCOUNTER → 2023-03-29 16:57 | Outpatient (BNVA) | payer MEDICARE, SELFPAY | PROVIDERS: PCP Nurse Practitioner Family; Visit Provider Nurse Practitioner Family | DX: I10 Essential (primary) hypertension (principal) | CPT/HCPCS: 80053; 84443; 85025 ==

== ENCOUNTER → 2023-09-29 09:12 | Outpatient (BNVA) | payer MEDICARE, SELFPAY | PROVIDERS: PCP Nurse Practitioner Family; Visit Provider Nurse Practitioner Family | DX: I10 Essential (primary) hypertension (principal); E55.9 Vitamin D deficiency, unspecified; R73.9 Hyperglycemia, unspecified | CPT/HCPCS: 80053; 80061; 82306; 83036 ==

== ENCOUNTER → 2024-03-29 09:55 | Outpatient (BNVA) | payer MEDICARE, SELFPAY | PROVIDERS: PCP Nurse Practitioner Family; Visit Provider Nurse Practitioner Family | DX: I10 Essential (primary) hypertension (principal); E55.9 Vitamin D deficiency, unspecified | CPT/HCPCS: 80053; 80061; 82306 ==

== ENCOUNTER 2024-04-11 10:58 | Outpatient (CLI) | payer MEDICARE, SELFPAY ==
--- NOTE | 2024-04-11 11:00 | MM_ITS ---
WS: [id number] Bilateral screening 3D tomosynthesis digital mammogram, 04/11/2024 Clinical Data: SCREENING Comparison: 10/12/2017, 04/14/2017, 10/14/2016, 09/13/2016, 07/13/2015, 03/22/2006. Findings: The breast parenchymal pattern shows heterogeneous density. No spiculated masses or clustered calcifi cations are seen. There are no secondary signs of carcinoma. MM/[place] [id number] Impression: 1. Negative bilateral mammogram unchanged. 2. Recommend annual screening mammograms. BIRADS: 1-Negative FOLLOW UP: 1 Year Follow-up The CAD lumber checker was used.
== END 2024-04-11 10:59 | disposition home or self-care (01) ==
LOC: MOBLMAM 11:01
PROVIDERS: PCP Nurse Practitioner Family; Visit Provider Nurse Practitioner Family
DX: Z12.31 Encounter for screening mammogram for malignant neoplasm of breast (principal)
CPT/HCPCS: 77063; 77067

== ENCOUNTER → 2024-10-10 10:30 | Outpatient (BNVA) | payer MEDICARE, SELFPAY | PROVIDERS: PCP Nurse Practitioner Family; Visit Provider Nurse Practitioner Family | DX: I10 Essential (primary) hypertension (principal) | CPT/HCPCS: 80053; 80061 ==

== ENCOUNTER → 2025-04-10 09:00 | Outpatient (BNVA) | payer MEDICARE, SELFPAY | PROVIDERS: PCP Nurse Practitioner Family; Visit Provider Nurse Practitioner Family | DX: I10 Essential (primary) hypertension (principal); E55.9 Vitamin D deficiency, unspecified | CPT/HCPCS: 80053; 80061; 82306 ==

== ENCOUNTER → 2025-10-16 08:30 | Outpatient (BNVA) | payer MEDICARE, SELFPAY | PROVIDERS: PCP Nurse Practitioner Family; Visit Provider Nurse Practitioner Family | DX: I10 Essential (primary) hypertension (principal) | CPT/HCPCS: 80053; 80061 ==

== ENCOUNTER 2025-11-12 09:56 | Outpatient (CLI) | payer MEDICARE, SELFPAY ==
--- NOTE | 2025-11-12 10:00 | MM_ITS ---
WS: [id number] BILATERAL 3D TOMOSYNTHESIS DIGITAL SCREENING MAMMOGRAPHY WITH CAD CLINICAL INFORMATION: Z12.39 - Encounter for other screening for malignant neop... HISTORY: Screening mammogram. No current complaints. COMPARISON: 2023 TECHNIQUE: Bilateral CC and MLO views. FINDINGS: The breasts are composed of heterogeneous fibroglandular density tissue, which can limit the detection of small underlying mass lesions. No suspicious mass, asymmetry, calcifications, or architectural distortion. No evidence of malignancy. Vascular calcification MM/MM scr tomosynthesis [id number] IMPRESSION: DENSITY: The breasts are heterogeneously dense, which may obscure small masses. BI-RADS: 2 - Benign FOLLOW UP: 1 Year Follow-up Recommend return to annual screening mammography.
== END 2025-11-12 09:57 | disposition home or self-care (01) ==
LOC: MOBLMAM 09:59
PROVIDERS: PCP Nurse Practitioner Family; Visit Provider Nurse Practitioner Family
DX: Z12.31 Encounter for screening mammogram for malignant neoplasm of breast (principal); R92.333 Mammographic heterogeneous density, bilateral breasts; R92.1 Mammographic calcification found on diagnostic imaging of breast
CPT/HCPCS: 77063; 77067